=== PATIENT | female | born 1950 | race Caucasian/White ===

== ENCOUNTER 2020-12-24 14:52 | Emergency (ER) | payer MEDICARE ==
[~2020-12-24] VITALS: Ht 167.6 cm; Wt 65.8 kg
--- NOTE | 2020-12-24 15:02 | NUR ---
DR SOMMER SPEAKING WITH DR COLON
--- NOTE | 2020-12-24 15:04 | NUR ---
TO ER BED 3, C/O BACK PAIN AND DIARRHEA FOR 1 WEEK NOW, AWAITING MD MORRIS.
[2020-12-24] MEDS ORDERED: HYDROMORPHONE 1 MG/1 ML DISP.SYRIN IM ONE (15:30)
[2020-12-24] MEDS ORDERED: HYDROMORPHONE 1 MG/1 ML DISP.SYRIN ONE (15:34)
[2020-12-24] MEDS ORDERED: PRED5TAB PO (15:42)
[2020-12-24] MEDS ORDERED: GABA-532 PO (15:42)
[2020-12-24] MEDS ORDERED: MAGN400O6 PO (15:42)
[2020-12-24] MEDS ORDERED: NA P133E RC (15:42)
[2020-12-24] MEDS ORDERED: VALB80CA PO (15:42)
[2020-12-24] MEDS ORDERED: MULT-366 PO (15:42)
[2020-12-24] MEDS ORDERED: SENN-261 PO (15:42)
[2020-12-24] MEDS ORDERED: PETR113O TP (15:42)
[2020-12-24] MEDS ORDERED: CLON0.5T4 PO (15:42)
[2020-12-24] MEDS ORDERED: LOPE2CAP PO (15:42)
[2020-12-24] MEDS ORDERED: TRIA15OI9 TP (15:42)
[2020-12-24] MEDS ORDERED: PANT40TA49 PO (15:42)
[2020-12-24] MEDS ORDERED: FENT1PAT5 TD (15:42)
[2020-12-24] MEDS ORDERED: MIRT-90 PO (15:42)
[2020-12-24] MEDS ORDERED: HYDR-4075 PO (15:42)
[2020-12-24] MEDS ORDERED: CARV3.122 PO (15:42)
[2020-12-24] MEDS ORDERED: ZINC113O14 TP (15:42)
[2020-12-24] MEDS ORDERED: HYDR8TAB2 PO (15:42)
[2020-12-24] MEDS ORDERED: BISA10SU11 RC (15:42)
[2020-12-24] MEDS ORDERED: LIDO30AD10 TP (15:42)
[2020-12-24] MEDS ORDERED: IPRA3AMP23 IH (15:42)
[2020-12-24] MEDS ORDERED: ONDA4TAB11 PO (15:42)
[2020-12-24] MEDS ORDERED: HYDR4TAB4 PO (15:42)
[2020-12-24] MEDS ORDERED: MORP15TA7 PO (15:42)
--- NOTE | 2020-12-24 15:56 | NUR ---
XRAY AT BEDSIDE
[2020-12-24 16:00] VITALS: BP 121/78
--- NOTE | 2020-12-24 16:41 | NUR ---
PT DECIDED TO GO AMA
--- NOTE | 2020-12-24 16:45 | NUR ---
[facility] ETA 0756
[2020-12-24 16:49] LABS: BASOPHILS % (AUTO) 0.4 % (0.0-2.0); EOSINOPHILS % (AUTO) 0.7 % (0.0-6.0); HEMATOCRIT 38 % (33-45); HEMOGLOBIN 12.4 g/dL (11.5-14.8); LYMPHOCYTES # (AUTO) 1.8 K/uL (0.8-4.8); LYMPHOCYTES % (AUTO) 26.4 % (20.0-44.0); MEAN CORPUSCULAR HGB CONC 33 g/dl (31.0-36.0); MEAN CORPUSCULAR VOLUME 88 fL (82-100); MONOCYTES # (AUTO) 0.4 K/uL (0.1-1.30); NEUTROPHILS # (AUTO) 4.5 K/uL (1.8-8.9); NEUTROPHILS % (AUTO) 66.5 % (43.0-81.0); PLATELET COUNT (AUTO) 147 K/uL (150-450); RED BLOOD CELL COUNT(AUTO) 4.29 MIL/uL (4.0-5.2); WHITE BLOOD COUNT (AUTO) 6.8 K/uL (4.3-11.0)
[2020-12-24 16:52] LABS: CALCIUM, SERUM 8.6 mg/dL (8.5-10.1); CREATININE 0.8 mg/dL (0.6-1.3); POTASSIUM 4.3 mmol/L (3.5-5.1)
--- NOTE | 2020-12-24 17:37 | NUR ---
CALLED [facility], UPDATED ETA 1800
== END 2020-12-24 19:14 | disposition left against medical advice (07) ==
LOC: ER 14:58
DX: M54.5 Low back pain (principal); R19.7 Diarrhea, unspecified; J44.9 Chronic obstructive pulmonary disease, unspecified; K21.9 Gastro-esophageal reflux disease without esophagitis; E11.9 Type 2 diabetes mellitus without complications; M81.0 Age-related osteoporosis without current pathological fracture; F41.9 Anxiety disorder, unspecified; F32.9 Major depressive disorder, single episode, unspecified; M06.9 Rheumatoid arthritis, unspecified; Z96.641 Presence of right artificial hip joint; Z91.040 Latex allergy status; Z88.6 Allergy status to analgesic agent; Z79.899 Other long term (current) drug therapy
CPT/HCPCS: 36415; 71045; 80048; 85025; 93005; 96372; 99285; J1170

== ENCOUNTER 2021-04-11 00:39 | Inpatient (IN) | payer MEDICARE ==
[~2021-04-11] VITALS: Ht 167.6 cm; Wt 59.9 kg
[~2021-04-11 00:39] MED LIST: BISA10SU11 RC; CARV3.122 PO; CLON0.5T4 PO; FENT1PAT5 TD; GABA-532 PO; HYDR-4075 PO; HYDR4TAB4 PO; HYDR8TAB2 PO; IPRA3AMP23 IH; LIDO30AD10 TP; LOPE2CAP PO; MAGN400O6 PO; MIRT-90 PO; MORP15TA7 PO; MULT-366 PO; NA P133E RC; ONDA4TAB11 PO; PANT40TA49 PO; PETR113O TP; PRED5TAB PO; SENN-261 PO; TRIA15OI9 TP; VALB80CA PO; ZINC113O14 TP
--- NOTE | 2021-04-11 00:50 | NUR ---
RN NOTES PICC LINE NURSE (AYDE) FACILITATED INSERTION OF MIDLINE @ L UA G#18, SECURED , INTACT AND FLUSHING WELL. ACCESS CLINICIAN WELL AWARE.
--- NOTE | 2021-04-11 01:15 | NUR ---
Patient came to the er bed 6 from [facility] c/o nausea and vomiting. Patient appears to be having chills. Patient has 106.4 rectal temperature checked upon arrival. Patient placed on cooling measures. Patient is alert and awake. Patient is breathing evenly and unlabored on 2l Nasal cannula at 98%. Patient is connected to the monitor.
[2021-04-11] MEDS ORDERED: ACETAMINOPHEN 650 MG/SUPP.RECT RC ONE ×2 (01:20→01:30)
[2021-04-11] MEDS ORDERED: VANCOMYCIN 1 GM in IV D5W 250 ML IV ONE (01:30)
[2021-04-11] MEDS ORDERED: IV NS 0.9% 1,000 ML BAG IV ONE ×2 (01:30)
[2021-04-11] MEDS ORDERED: CEFEPIME 1 GM in IV D5W 50 ML IV ONE (01:30)
[2021-04-11] MEDS ORDERED: CEFEPIME 1 GM VIAL ONE (01:40)
[2021-04-11] MEDS ORDERED: VANCOMYCIN 1 GM VIAL ONE (01:40)
--- NOTE | 2021-04-11 02:01 | NUR ---
Patient has a bowel movement. Patient is provided with bed bath.
--- NOTE | 2021-04-11 02:05 | NUR ---
Xray at bedside
--- NOTE | 2021-04-11 02:08 | NUR ---
Patient taken to Ct [address]
[2021-04-11 02:10] LABS: BASOPHILS % (AUTO) 0.3 % (0.0-2.0); EOSINOPHILS % (AUTO) 0.8 % (0.0-6.0); HEMATOCRIT 40 % (33-45); HEMOGLOBIN 13.2 g/dL (11.5-14.8); LYMPHOCYTES # (AUTO) 0.7 K/uL (0.8-4.8); LYMPHOCYTES % (AUTO) 9.3 % (20.0-44.0); MEAN CORPUSCULAR HGB CONC 33 g/dl (31.0-36.0); MEAN CORPUSCULAR VOLUME 95 fL (82-100); MONOCYTES # (AUTO) 0.5 K/uL (0.1-1.30); MONOCYTES % (AUTO) 5.6 % (2.0-12.0); NEUTROPHILS # (AUTO) 6.8 K/uL (1.8-8.9); PLATELET COUNT (AUTO) 140 K/uL (150-450); RED BLOOD CELL COUNT(AUTO) 4.23 MIL/uL (4.0-5.2)
[2021-04-11 02:25] LABS: CALCIUM, SERUM 8.8 mg/dL (8.5-10.1); CARBON DIOXIDE 32 mmol/L (21-32); CHLORIDE 103 mmol/L (98-107); GLUCOSE 195 mg/dL (74-106); POTASSIUM 3.9 mmol/L (3.5-5.1); SODIUM SERUM 141 mmol/L (136-145); UREA NITROGEN, BLOOD 17 mg/dL (7-18)
[2021-04-11 02:29] LABS: BILIRUBIN,URINE NEGATIVE (NEGATIVE); COLOR,URINE YELLOW (YELLOW); LEUKOCYTE ESTERASE ,URINE NEGATIVE (NEGATIVE); NITRITE, URINE NEGATIVE (NEGATIVE); PH,URINE 5.5 (5.0-8.0); PROTEIN,URINE NEGATIVE (NEGATIVE); UGLUCOSE NEGATIVE (NEGATIVE); UROBILINOGEN,URINE 0.2 EU/dL (0.2)
--- NOTE | 2021-04-11 02:36 | NUR ---
CRITICAL LAB: LACTIC ACID: 2.6 NOTIFIED
[2021-04-11 02:37] LABS: ALANINE AMINOTRANSFERASE 15 U/L (12-78); ALBUMIN 3.6 g/dL (3.4-5.0); ALKALINE PHOSPHATASE 70 U/L (46-116); ASPARTATE AMINOTRANSFERASE 16 U/L (15-37); BILIRUBIN,DIRECT 0.1 mg/dL (0.0-0.2); BILIRUBIN,TOTAL 0.4 mg/dL (0.2-1.0); TOTAL PROTEIN, SERUM 6.9 g/dL (6.4-8.2)
--- NOTE | 2021-04-11 02:53 | NUR ---
CALLED [facility] FOR MS BED
[2021-04-11 02:56] LABS: BACTERIA,URINE None seen /HPF (None Seen); RBC,URINE 0-2 /HPF (0-2); SQUAMOUS EPITHELIAL CELL,UR Few /HPF (None Seen); WBC,URINE 0-2 /HPF (0-3)
--- NOTE | 2021-04-11 03:09 | NUR ---
DR LOPEZ ON THE PHONE W/ YELITZA MORALES
[2021-04-11] MEDS ORDERED: ACETAMINOPHEN 325 MG TABLET PO PRN (03:30)
[2021-04-11] MEDS ORDERED: MAG HYDROX/AL HYDROX/SIMETH 30 ML UDC PO PRN (03:30)
[2021-04-11] MEDS ORDERED: ZOLPIDEM TARTRATE 5 MG TABLET PO PRN (03:30)
[2021-04-11] MEDS ORDERED: MAGNESIUM HYDROXIDE 30 ML UDC PO PRN (03:30)
[2021-04-11] MEDS ORDERED: ONDANSETRON HCL/PF 4 MG/2 ML VIAL IVP PRN (03:30)
[2021-04-11] MEDS ORDERED: Z GUARD REMEDY 2 OZ OINT TP PRN (03:30)
--- NOTE | 2021-04-11 05:24 | NUR ---
MARIELA TORRE, MARGARITO ONCDARYA RE ELEVATED LACTIC
--- NOTE | 2021-04-11 07:57 | NUR ---
bed assigned 104
[2021-04-11] MEDS: PANTOPRAZOLE 40 MG VIAL IV SCH (09:00)
--- NOTE | 2021-04-11 09:51 | NUR ---
REPORT GIVEN TO KENDALL MURPHY FOR ITZ
--- NOTE | 2021-04-11 10:00 | NUR ---
RN NOTE PATIENT RECEIVED IN THE FLOOR, NON-VERBAL, EYES OPEN. PATIENT ON SIMPLE MASK WITH LABORED BREATHING. VITAL SIGNS STABLE. RIGHT FOREARM 29G IV IN PLACE, PATENT WITH NO SIGNS OF INFILTRATION. WILL CONTINUE TO MONITOR.
[2021-04-11 12:00] VITALS: BP 116/69
[2021-04-11] MEDS: CEFEPIME 2 GM in IV D5W 100 ML IV SCH ×2 (12:11→23:18)
[2021-04-11] MEDS: IV NS 0.9% 1,000 ML IV PRN ×2 (13:02→22:00)
[2021-04-11 13:14] LABS: ABG BASE EXCESS -0.7 mmol/L; ABG PCO2 38.3 mmHg (35.0-45.0); ABG PH 7.409 (7.350-7.450); COHb 0.4 % (0.5-1.5); MetHb 0.4 % (0.0-1.5); O2Hb 94.9 % (94.0-97.0); SITE, ABG Left Radial; VENT MODE, BG 8L SIMPLE MASK
[2021-04-11] MEDS: VANCOMYCIN 0.75 GM in IV D5W 250 ML IV SCH (13:56)
[2021-04-11] MEDS ORDERED: METF-881 PO (14:14)
[2021-04-11] MEDS ORDERED: LORA-258 PO (14:14)
[2021-04-11] MEDS ORDERED: LORA10TA68 PO (14:14)
[2021-04-11] MEDS ORDERED: CALC-15 PO (14:14)
[2021-04-11] MEDS ORDERED: ERGO50CA PO (14:14)
[2021-04-11] MEDS: ENOXAPARIN SODIUM 40 MG/0.4 ML DISP.SYRIN SQ SCH (14:51)
[2021-04-11] MEDS: IPRATROPIUM NEB FS 0.5 MG/2.5 ML AMPUL.NEB NEB SCH ×3 (15:48→23:37)
[2021-04-11 16:00] VITALS: BP 103/58
--- NOTE | 2021-04-11 18:30 | NUR ---
RN CLOSING NOTE PATIENT IN BED, RESTING, EYES CLOSED. PATIENT ON 8L O2 SIMPLE MASK WITH NO SIGNS OF LABORED BREATHING, CONTINUOUS PULSE OX AT BEDSIDE. RIGHT FOREARM 20G IV IN PLACE, PATENT WITH NO SIGNS OF INFILTRATION. NO SIGNS OF DISTRESS NOTED AT THIS TIME. BED LOCKED AND IN LOWEST POSITION, CALL LIGHT WITHIN REACH, 3 SIDE RAILS UP. ALL SAFETY MEASURES IMPLEMENTED. WILL ENDORSE TO DINKEY BRAKEMAN NURSE.
--- NOTE | 2021-04-11 19:30 | NUR ---
RN NOTES RECEIVED PT FOR ITZ. PATIENT IN NO S/SX OF ACUTE DISTRESS AT THIS TIME. WILL ENSURE SAFETY MEASURES WITHIN THE SHIFT. PATIENT BED ALARM IS ON. HEAD OF BED ELEVATED. BED IS LOCKED, IN LOWEST POSITION AND SIDE RAILS UP. CALL LIGHT WITHIN REACH OF THE PATIENT. APPLICABLE ISOLATION PRECAUTIONS IN PLACE. WILL CONTINUE TO MONITOR AND REASSESS FOR ANY CHANGES AND WILL CARRY OUT ANY ONGOING AND ACTIVE MD ORDER.
[2021-04-11 20:00] VITALS: BP 90/71
--- NOTE | 2021-04-11 20:00 | NUR ---
RN NOTES NOTED PT'S TEMP IS AT 100.5@1999; COOLING MEASURES RENDERED. WILL SECURED PRN SUPPOSITORY MEDICATION AND ADMINISTER NEEDED. EMERY GRINDER MADE AWARE. WILL CONTINUE TO MONITOR AND ASSESS THROUGHOUT THE SHIFT. Addendum: 04/11/21 at 2340 by LARA CROSS RN ON 2199- PT'S TEMP IS AT 98.8, WILL CONTINUE TO MONITOR AND ASSESS THROUGHOUT THE SHIFT.
--- NOTE | 2021-04-11 21:32 | NUR ---
RN NOTES NOTIFIED ONCALL MD ( DR. MORALES) ABOUT PT'S CONDITION; TEMP (1999) @100.5, PT LETHARGIC. ADVISED HIM THAT PT'S CANT TAKE ORAL MEDS AND CURRENT DIET IS CONSISTENT CARB, ALSO ADVISED HIM THAT PRIOR DIET PER ADMISSION (DR. SCHUSTER) WAS NPO; DR. MORALES ORDERED ACETAMINOPHEN SUPP REC @650MG RC Q6H PRN AND SWITCHED BACK TO NPO. ALSO ADVISED ABOUT LACTIC ACID ON 5 IS AT 3.7 PREVIOSULY AT 2.3 (ON 119) BOLUS GIVEN @0130, NO NEW ORDERS PER MD PT ON FLUIDS. WILL CARRY OUT CURRENT ORDER AND CONTINUE TO MONITOR. IMAGE SCIENTIST MADE AWARE.
[2021-04-11] MEDS: ACETAMINOPHEN 650 MG/SUPP.RECT RC PRN (21:51)
[2021-04-12] VITALS (8 sets, daily range): BP systolic 84–114; BP diastolic 47–74
--- NOTE | 2021-04-12 00:30 | NUR ---
RN NOTES NOTED PT'S BP IS AT 84/47; 500ML NS BOLUS WILL BE GIVEN PER MD ORDER. ROUTE DELIVERY MANAGER MADE AWARE. WILL CONTINUE TO MONITOR AND ASSESS THROUGHOUT THE SHIFT. Addendum: 04/12/21 at 0141 by LARA CROSS RN @0130 BP IS AT 97/73; WILL CONTINUE TO MONITOR AND ASSESS THROUGHOUT THE SHIFT.
[2021-04-12] MEDS ORDERED: LIDOCAINE HCL/MPF 1% 30 ML VIAL IJ ONE (00:44)
[2021-04-12] MEDS ORDERED: IV NS 0.9% 500 ML IV ONE (01:00)
[2021-04-12] MEDS: VANCOMYCIN 0.75 GM in IV D5W 250 ML IV SCH ×2 (01:20→15:05)
[2021-04-12] MEDS ORDERED: LIDOCAINE 1% INJ 50 ML MDV IJ ONE (01:30)
[2021-04-12] MEDS: IPRATROPIUM NEB FS 0.5 MG/2.5 ML AMPUL.NEB NEB SCH ×6 (03:30→23:29)
[2021-04-12] MEDS: ACETAMINOPHEN 650 MG/SUPP.RECT RC PRN ×2 (06:15→22:15)
[2021-04-12 06:28] LABS: BASOPHILS % (AUTO) 0.2 % (0.0-2.0); EOSINOPHILS % (AUTO) 0.2 % (0.0-6.0); HEMATOCRIT 37 % (33-45); HEMOGLOBIN 12.7 g/dL (11.5-14.8); LYMPHOCYTES # (AUTO) 0.8 K/uL (0.8-4.8); LYMPHOCYTES % (AUTO) 10.8 % (20.0-44.0); MEAN CORPUSCULAR HGB CONC 34 g/dl (31.0-36.0); MEAN CORPUSCULAR VOLUME 93 fL (82-100); MONOCYTES # (AUTO) 0.2 K/uL (0.1-1.30); MONOCYTES % (AUTO) 3.2 % (2.0-12.0); NEUTROPHILS % (AUTO) 85.6 % (43.0-81.0); PLATELET COUNT (AUTO) 85 K/uL (150-450); RED BLOOD CELL COUNT(AUTO) 4.04 MIL/uL (4.0-5.2)
[2021-04-12 06:41] LABS: ALBUMIN 2.6 g/dL (3.4-5.0); BILIRUBIN,TOTAL 0.6 mg/dL (0.2-1.0); CALCIUM, SERUM 8.2 mg/dL (8.5-10.1); CREATININE 0.9 mg/dL (0.6-1.3); MAGNESIUM 1.6 mg/dL (1.8-2.4); PHOSPHORUS 2.8 mg/dL (2.5-4.9); POTASSIUM 3.1 mmol/L (3.5-5.1); TOTAL PROTEIN, SERUM 5.5 g/dL (6.4-8.2)
--- NOTE | 2021-04-12 06:59 | NUR ---
RN CLOSING NOTE: PATIENT REMAINS IN ROOM IN NO SIGNS OF RESPIRATORY DISTRESS, PATIENT STILL ON 8L OF 02 VIA SIMPLE MASK ;TOLERATING WELL SATURATING @ >95% SP02. SAFETY MEASURES IMPLEMENTED, BED IN LOWEST POSITION, LOCKED, SIDE RAILS UP, CALL LIGHT WITHIN REACH. ALL NEEDS AND ORDERS ADDRESSED DURING THE SHIFT. IV ACCESS MAINTAINED INTACT, SECURED AND FLUSHING WELL. ALL DUE MEDS GIVEN ORDERED & SCHEDULED ; PATIENT TOLERATED WELL. PATIENT KEPT CLEAN AND COMFORTABLE WITHIN THE SHIFT. PATIENT ENDORSED TO INCOMING SHIFT RN WITH STABLE VITAL SIGN AND FOR CONTINUITY OF CARE.
[2021-04-12 07:18] LABS: BAND % (MANUAL) 3 % (0.0-5.0); LYMPHOCYTES % (MANUAL) 16 % (16-48); MONOCYTES % (MANUAL) 1 % (0-11.0); NEUTROPHILS % (MANUAL) 80 (42-76)
--- NOTE | 2021-04-12 07:25 | NUR ---
RN OPENING NOTE PATIENT RECEIVED IN BED, RESTING. PATIENT ON SIMPLE MASK WITH 8L O2 WITH NO SIGNS OF LABORED BREATHING AT THIS TIME. LEFT UA MIDLINE 18G IV IN PLACE, PATENT WITH NO SIGNS OF INFILTRATION. NO SIGNS OF DISTRESS NOTED AT THIS TIME. BED LOCKED AND IN LOWEST POSITION, 3 SIDE RAILS UP, CALL LIGHT WITHIN REACH. ALL SAFETY MEASURES. WILL CONTINUE TO MONITOR.
[2021-04-12] MEDS: PANTOPRAZOLE 40 MG VIAL IV SCH (08:13)
[2021-04-12] MEDS: Magnesium 1GM/D5W 100ML PREMIX 100 ML IV SCH ×2 (08:13→09:18)
[2021-04-12] MEDS: POTASSIUM CL. PREMIX PERIPHER. 50 ML IV SCH ×4 (10:12→13:45)
--- NOTE | 2021-04-12 10:34 | NUR ---
RN NOTE PLATELET COUNT OF 85, DOCTOR NOTIFIED. PER MD STEPHENSON, STILL OKAY TO GIVE LOVENOX 40MG. WILL CONTINUE TO MONITOR.
[2021-04-12] MEDS: ENOXAPARIN SODIUM 40 MG/0.4 ML DISP.SYRIN SQ SCH (10:36)
[2021-04-12] MEDS: CEFEPIME 2 GM in IV D5W 100 ML IV SCH ×2 (12:10→23:03)
--- NOTE | 2021-04-12 15:03 | NUR ---
RN NOTE PATIENT REFUSED LABS, UNABLE TO GET A VANCOMYCIN TROUGH LEVEL. PER PHARMACY OKAY TO GIVE TODAY'S DOSE. WILL CONTINUE TO MONITOR.
[2021-04-12] MEDS: IV NS 0.9% 1,000 ML IV PRN (15:42)
--- NOTE | 2021-04-12 18:40 | NUR ---
RN CLOSING NOTE PATIENT IN BED, RESTING, A&OX3. PATIENT ON 2L O2 NC WITH NO SIGNS OF LABORED BREATHING AT THIS TIME AND SATURATING AT 95%. TELE MONITOR ON, SINUS RHYTHM. LEFT UA MIDLINE 18G IN PLACE, PATENT WITH NO SIGNS OF INFILTRATION. ALL NEEDS ATTENDED DURING SHIFT. NO SIGNS OF DISTRESS NOTED. BED LOCKED AND IN LOWEST POSITION, 3 SIDE RAILS UP, CALL LIGHT WITHIN REACH. ALL SAFETY MEASURES IMPLEMENTED. WILL ENDORSE TO SELLING SPECIALIST NURSE.
--- NOTE | 2021-04-12 19:30 | NUR ---
RN NOTES RECEIVED PT FOR ITZ. PATIENT IN NO S/SX OF ACUTE DISTRESS AT THIS TIME; CURRENTLY ON VIA AL. WILL ENSURE SAFETY MEASURES WITHIN THE SHIFT. PATIENT BED ALARM IS ON. HEAD OF BED ELEVATED. BED IS LOCKED, IN LOWEST POSITION AND SIDE RAILS UP. CALL LIGHT WITHIN REACH OF THE PATIENT. APPLICABLE ISOLATION PRECAUTIONS IN PLACE. WILL CONTINUE TO MONITOR AND REASSESS FOR ANY CHANGES AND WILL CARRY OUT ANY ONGOING AND ACTIVE MD ORDER.
--- NOTE | 2021-04-12 20:21 | NUR ---
BREATHING TX NOT GIVEN DUE TO PENDING PCR COVID TEST RESULT. KATHERINE SANDS NOTIFIED. NO RESPIRATORY DISTRESS NOTED AT THIS TIME .
--- NOTE | 2021-04-12 22:19 | NUR ---
RN NOTES NOTED PT'S TEMP IS AT 99.5@1999; COOLING MEASURES RENDERED. ICT EDUCATOR MADE AWARE. WILL CONTINUE TO MONITOR AND ASSESS THROUGHOUT THE SHIFT. Addendum: 04/12/21 at 2229 by LARA CROSS RN ON 2199; PT TEMP IS AT 99.8; PRN MEDICATION GIVEN AND COOLING MEASURES RENDERED. WILL CONTINUE TO MONITOR AND ASSESS THROUGHOUT THE SHIFT.
[2021-04-13] VITALS (7 sets, daily range): BP systolic 101–125; BP diastolic 58–71
[2021-04-13] MEDS: VANCOMYCIN 0.75 GM in IV D5W 250 ML IV SCH ×4 (02:01→15:47)
[2021-04-13] MEDS: IPRATROPIUM NEB FS 0.5 MG/2.5 ML AMPUL.NEB NEB SCH ×6 (03:08→23:26)
--- NOTE | 2021-04-13 04:00 | NUR ---
RN NOTES NO NOTED CHANGES IN PATIENT CONDITION AT THIS TIME; PATIENT VITALS STABLE, NO SIGNS OF ACUTE RESPIRATORY DISTRESS. AM PATIENT CARE RENDERED.WILL CONTINUE TO MONITOR AND REASSESS FOR ANY CHANGES THROUGHOUT THE SHIFT.
[2021-04-13 06:30] LABS: BASOPHILS % (AUTO) 0.3 % (0.0-2.0); HEMATOCRIT 33 % (33-45); HEMOGLOBIN 11.2 g/dL (11.5-14.8); LYMPHOCYTES # (AUTO) 0.9 K/uL (0.8-4.8); LYMPHOCYTES % (AUTO) 27.6 % (20.0-44.0); MEAN CORPUSCULAR HGB CONC 34 g/dl (31.0-36.0); MEAN CORPUSCULAR VOLUME 93 fL (82-100); MONOCYTES # (AUTO) 0.3 K/uL (0.1-1.30); MONOCYTES % (AUTO) 9.3 % (2.0-12.0); NEUTROPHILS % (AUTO) 60.8 % (43.0-81.0); PLATELET COUNT (AUTO) 76 K/uL (150-450); RED BLOOD CELL COUNT(AUTO) 3.54 MIL/uL (4.0-5.2); WHITE BLOOD COUNT (AUTO) 3.2 K/uL (4.3-11.0)
--- NOTE | 2021-04-13 06:45 | NUR ---
RN CLOSING NOTE: PATIENT REMAINS IN ROOM IN NO SIGNS OF RESPIRATORY DISTRESS, PATIENT STILL ON 2L OF 02 VIA NC ;TOLERATING WELL SATURATING @ >95% SP02. SAFETY MEASURES IMPLEMENTED, BED IN LOWEST POSITION, LOCKED, SIDE RAILS UP, CALL LIGHT WITHIN REACH. ALL NEEDS AND ORDERS ADDRESSED DURING THE SHIFT. IV ACCESS MAINTAINED INTACT, SECURED AND FLUSHING WELL. ALL DUE MEDS GIVEN ORDERED & SCHEDULED ; PATIENT TOLERATED WELL. PATIENT KEPT CLEAN AND COMFORTABLE WITHIN THE SHIFT. PATIENT ENDORSED TO INCOMING SHIFT RN WITH STABLE VITAL SIGN AND FOR CONTINUITY OF CARE.
[2021-04-13 06:46] LABS: ALBUMIN 2.5 g/dL (3.4-5.0); BILIRUBIN,TOTAL 0.5 mg/dL (0.2-1.0); CALCIUM, SERUM 8.4 mg/dL (8.5-10.1); CREATININE 0.7 mg/dL (0.6-1.3); MAGNESIUM 1.8 mg/dL (1.8-2.4); PHOSPHORUS 2.4 mg/dL (2.5-4.9); POTASSIUM 3.3 mmol/L (3.5-5.1); TOTAL PROTEIN, SERUM 5.3 g/dL (6.4-8.2)
--- NOTE | 2021-04-13 07:48 | NUR ---
PUBLIC SERVICE ADMINISTRATOR OPENING NOTES RECEIVED PATIENT AWAKE ALERT IN SEMI FOWLERS POSITION ON 2L NC WITH O2 SAT @97% WITH NO S/SX OF RESPIRATORY DISTRESS. PT HAS A BRAVO MIDLINE 18G SL FLUSH PATENT AND INTACT. PT HAS SOME COMPLAINTS OF NAUSEA WILL MEDICATE WITH PRN ZOFRAN. SAFETY MEASURES IN PLACE WITH BED IN THE LOWEST POSITION AND SIDE RAILS UP X2, CALL LIGHT WITHIN REACH.
[2021-04-13] MEDS: ENOXAPARIN SODIUM 40 MG/0.4 ML DISP.SYRIN SQ SCH (08:00)
[2021-04-13] MEDS: PANTOPRAZOLE 40 MG VIAL IV SCH (08:00)
--- NOTE | 2021-04-13 08:13 | NUR ---
RESIN PAINTER NOTE HELD LOVENOX DUE TO LOW PLATELETS OF 76
[2021-04-13 08:47] LABS: BAND % (MANUAL) 1 % (0.0-5.0); EOSINOPHILS % (MANUAL) 1 % (0-4); LYMPHOCYTES % (MANUAL) 30 % (16-48); MONOCYTES % (MANUAL) 7 % (0-11.0); NEUTROPHILS % (MANUAL) 61 (42-76)
[2021-04-13] MEDS: IV NS 0.9% 1,000 ML IV PRN ×2 (09:19→23:42)
[2021-04-13] MEDS ORDERED: ACETAMINOPHEN 650 MG/20.3 ML UDC PO PRN (09:30)
[2021-04-13] MEDS ORDERED: POTASSIUM CHLORIDE 20 MEQ POWDER PACKET PO SCH (10:00)
[2021-04-13] MEDS: clonazePAM 0.5 MG TABLET PO SCH ×2 (10:01→17:04)
[2021-04-13] MEDS: GABAPENTIN 400 MG CAPSULE PO SCH ×3 (10:02→17:04)
[2021-04-13] MEDS: CEFEPIME 2 GM in IV D5W 100 ML IV SCH ×2 (11:27→23:42)
--- NOTE | 2021-04-13 13:43 | NUR ---
DONAL MURPHY NOTE HELD VANCOMYCIN DUE TO VANCO TROUGH OF 31. Addendum: 04/13/21 at 1356 by FABIOLA SHARMA RN ERROR: TROUGH LEVEL FROM INCORRECT PT. OKAY TO ADMINISTER DOSE PER PHARMACY, NEW TROUGH WILL BE DRAWN NEXT SHIFT. Addendum: 04/13/21 at 1358 by FABIOLA SHARMA RN PHARMACY CALLED AND INSTRUCTED TO HOLD DOSE. STAT TROUGH LEVEL ORDERED. Addendum: 04/13/21 at 1548 by FABIOLA N SHARMA RN VANCO TROUGH DRAWN FROM AM BLOOD DRAW WITH LEVEL AT 22. PER PHARMACY OKAY TO GIVE 1400 DOSE OF VANCOMYCIN.
[2021-04-13] MEDS ORDERED: K PHOS NEUTRAL 250 MG TABLET PO ONE (15:30)
[2021-04-13] MEDS: ENSURE ENLIVE 237 ML LIQUID (VANILLA) PO SCH (17:42)
[2021-04-13] MEDS: ACETAMINOPHEN 325 MG TABLET PO PRN (17:51)
--- NOTE | 2021-04-13 18:50 | NUR ---
RECORDING STUDIO SET UP WORKER CLOSING NOTE PATIENT IS RESTING WITH HOB ELEVATED ON 2L NC, WITH NO S/SX OF RESPIRATORY DISTRESS. PATIENT HAS A BRAVO MIDLINE 18G WITH NS RUNNING AT 75ML/HR. SAFETY MEASURES IN PLACE, BED IN LOWEST POSITION SIDE RAILS UP X2 AND CALL LIGHT WITHIN REACH.
--- NOTE | 2021-04-13 20:27 | NUR ---
BREATHING TX NOT GIVEN DUE TO PENDING PCR COVID TEST RESULT. KATHERINE HODGE NOTIFIED. NO RESPIRATORY DISTRESS NOTED AT THIS TIME .
--- NOTE | 2021-04-13 23:20 | NUR ---
RN NOTES: RECEIVED PATIENT IN BED ASLEEP BUT EASILY AROUSABLE. ALERT AND VERBALLY RESPONSIVE. ON O2 INHALATION AT 2L/MIN VIA NASAL CANNULA, O2 SAT 98%. NO C/O PAIN OR DISCOMFORT. NO RESPIRATORY DISTRESS. HAS BRAVO MIDLINE W/ 18G INTACT AND PATENT. BED IN LOW POSITION. BOTH SIDE RAILS UP. PLACE CALL LIGHT WITHIN REACH.
[2021-04-14] VITALS: BP 108/66
[2021-04-14] MEDS: IPRATROPIUM NEB FS 0.5 MG/2.5 ML AMPUL.NEB NEB SCH ×6 (02:53→23:30)
[2021-04-14 04:00] VITALS: BP 113/63
[2021-04-14] MEDS: MORPHINE SULFATE INJ 4 MG/ML DISP.SYRIN IV PRN ×3 (06:12→16:42)
--- NOTE | 2021-04-14 06:30 | NUR ---
RN CLOSING NOTES: RESIDENT IN BED, ALERT AND VERBALLY RESPONSIVE. C/O GENERALIZED BODY PAIN 8/10. PAIN MEDICATION MORPHINE IV PUSH GIVEN AND PATIENT TOLERATED WELL. NO RESPIRATORY DISTRESS NOTED. NO SIGNIFICANT CHANGES NOTED. WILL ENDORSE TO MORNING SHIFT NURSE.
--- NOTE | 2021-04-14 07:30 | NUR ---
MS RN OPENING NOTES RECEIVED PATIENT ON BED, AWAKE AND A/O X3. ON O2 AT 2LPM VIA NASAL CANNULA SATURATING WELL. NO SOB NOTED. NOT IN DISTRESS. WITH NO COMPLAINTS OF PAIN AT THIS TIME. WITH IV ACCESS AT LEFT UPPER ARM MIDLINE WITH IVF NS AT 75ML/HR INFUSING WELL. IN LINE IS PATENT AND INTACT. SAFETY MEASURES IN PLACE. CALL LIGHT WITHIN REACH. BED ON LOWEST AND LOCKED POSITION, SIDE RAILS UP X2. WILL CONTINUE TO MONITOR.
[2021-04-14 08:00] VITALS: BP 133/68
[2021-04-14] MEDS: ENOXAPARIN SODIUM 40 MG/0.4 ML DISP.SYRIN SQ SCH (09:00)
[2021-04-14] MEDS: clonazePAM 0.5 MG TABLET PO SCH ×2 (09:36→16:34)
[2021-04-14] MEDS: GABAPENTIN 400 MG CAPSULE PO SCH ×3 (09:36→16:34)
[2021-04-14] MEDS: PANTOPRAZOLE 40 MG/PACK PACK PO SCH (09:37)
[2021-04-14] MEDS: ENSURE ENLIVE 237 ML LIQUID (VANILLA) PO SCH ×2 (09:40→18:03)
[2021-04-14] MEDS: CEFEPIME 2 GM in IV D5W 100 ML IV SCH (12:13)
[2021-04-14] MEDS: VANCOMYCIN 0.75 GM in IV D5W 250 ML IV SCH (13:24)
--- NOTE | 2021-04-14 15:00 | NUR ---
MS RN NOTES AMBULANCE PERSONNEL WERE HERE TO SR ACCOUNT EXECUTIVE THE PATIENT BUT PATIENT REFUSED FOR SHE WANTS TO BE DISCHARGED TO [facility] BUT [facility] DOESN'T OFFER GIVING IV ANTIBIOTICS. PATIENT WAS SUPPOSEDLY TO BE DISCHARGE TO [facility] FOR 3 DAYS THEN BE SENT BACK TO [facility]. DR. SCHUSTER HELD THE DISCHARGE ORDER TO CONVINCE PATIENT TOMORROW.
[2021-04-14 16:00] VITALS: BP 134/72
--- NOTE | 2021-04-14 19:20 | NUR ---
MS RN CLOSING NOTES PATIENT ON BED, AWAKE AND A/O X3. ON O2 AT 2LPM VIA NASAL CANNULA SATURATING WELL. NO SOB NOTED. NOT IN DISTRESS. WITH NO COMPLAINTS OF PAIN AT THIS TIME. WITH IV ACCESS AT LEFT UPPER ARM MIDLINE WITH IVF NS AT 75ML/HR INFUSING WELL. IV LINE IS PATENT AND INTACT. SAFETY MEASURES IN PLACE. CALL LIGHT WITHIN REACH. BED ON LOWEST AND LOCKED POSITION, SIDE RAILS UP X2. WILL ENDORSE TO NEXT SHIFT FOR ITZ..
[2021-04-14] MEDS: IV NS 0.9% 1,000 ML IV PRN (19:30)
--- NOTE | 2021-04-14 20:05 | NUR ---
RN NOTE LAST VANCOMYCIN THROUGH TAKEN ON 04/13/2021, PATIENT HAS REFUSED LABS SINCE THEN, NO NEW LABS TAKEN FOR TODAY. NOTIFIED PHARMACY REGARDING NEXT DOSE OF VANCOMYCIN SCHEDULED FOR 0200 ON 04/15/21. SINCE THERE'S NO RECENT VANCOMYCIN THROUGH LEVELS AVAILABLE, PHARMACY WAS CONTACTED TO DETERMINE THE NEXT COURSE OF ACTION. PATIENT WILL BE ASKED FOR LABS, IF PATIENT REFUSES, THE NEXT DOSE OF VANCOMYCIN WILL PROCEED SCHEDULED. IF LABS ARE OBTAINED, NEXT VANCOMYCIN ADMINISTRATION WILL DEPEND ON THE THROUGH LEVELS YIELDED BY THESE LABS.
--- NOTE | 2021-04-14 20:12 | NUR ---
BREATHING TX NOT GIVEN DUE TO PENDING PCR COVID TEST RESULT. KATHERINE OCAMPO NOTIFIED. NO RESPIRATORY DISTRESS NOTED AT THIS TIME .
--- NOTE | 2021-04-14 21:00 | NUR ---
RN NOTE PATIENT REFUSES LABS, NO VANCOMYCIN TROUGH IS ABLE TO BE OBTAINED AT THIS TIME. WILL PROCEED WITH NEXT SCHEDULED VANCOMYCIN ADMINISTRATION FOR 0200 ON 04/15/21 PER PHARMACY'S ORDERS.
[2021-04-15] VITALS: BP 135/81
[2021-04-15] MEDS: CEFEPIME 2 GM in IV D5W 100 ML IV SCH ×2 (00:03→11:23)
[2021-04-15] MEDS: MORPHINE SULFATE INJ 4 MG/ML DISP.SYRIN IV PRN ×5 (00:39→17:45)
[2021-04-15] MEDS: VANCOMYCIN 0.75 GM in IV D5W 250 ML IV SCH ×2 (02:21→13:26)
[2021-04-15] MEDS: IPRATROPIUM NEB FS 0.5 MG/2.5 ML AMPUL.NEB NEB SCH ×4 (03:30→15:30)
--- NOTE | 2021-04-15 07:01 | NUR ---
RT Treatment not given due to pending COVID-19 results
--- NOTE | 2021-04-15 07:11 | NUR ---
RN CLOSING NOTES PATIENT REMAINS IN BED, AWAKE AND A/O X4. ON O2 AT 2L VIA NASAL CANNULA SATURATING AT 94% . SLIGHT SOB NOTED, WHICH WAS ALLEVIATED BY REPOSITIONING OF BED TO 45 DEGREES. NOT IN DISTRESS. WITH NO COMPLAINTS OF PAIN AT THIS TIME AFTER MORPHINE ADMINISTRATION AT 0600. PATIENT REFUSED MORNING LABS. WITH IV ACCESS AT LEFT UPPER ARM MIDLINE WITH IV NS AT 75ML/HR INFUSING WELL. IV LINE IS PATENT AND INTACT. SAFETY MEASURES IN PLACE. CALL LIGHT WITHIN REACH. BED ON LOWEST AND LOCKED POSITION, SIDE RAILS UP X2. WILL ENDORSE TO NEXT SHIFT FOR ITZ.
--- NOTE | 2021-04-15 07:53 | NUR ---
MS RN OPENING NOTES RECEIVED PT RESTING COMFORTABLY IN SEMI FOWLERS POSITION ON 2 L NC WITH NO S/S OF RESP DISTRESS. PT. HAS A LEFT UPPER ARM MIDLINE 18 G RUNNING NS AT 75 ML PER HR. PT HAS NO COMPLAINTS OF PAIN AT THIS TIME. SAFETY MEASURES IN PLACE, BED AT LOWEST LOCKED POSITION, CALL LIGHT WITHIN REACH.
[2021-04-15 08:00] VITALS: BP 141/80
[2021-04-15] MEDS: clonazePAM 0.5 MG TABLET PO SCH ×2 (08:42→17:06)
[2021-04-15] MEDS: GABAPENTIN 400 MG CAPSULE PO SCH ×3 (08:42→17:05)
[2021-04-15] MEDS: ENOXAPARIN SODIUM 40 MG/0.4 ML DISP.SYRIN SQ SCH (08:43)
[2021-04-15] MEDS: ENSURE ENLIVE 237 ML LIQUID (VANILLA) PO SCH (08:43)
[2021-04-15] MEDS: PANTOPRAZOLE 40 MG/PACK PACK PO SCH (09:00)
[2021-04-15] MEDS ORDERED: PANTOPRAZOLE 40 MG TABLET.DR PO SCH (09:00)
[2021-04-15 09:56] VITALS: BP 141/80
[2021-04-15] MEDS: IV NS 0.9% 1,000 ML IV PRN (11:22)
[2021-04-15] MEDS ORDERED: AMOX-430 PO (11:53)
--- NOTE | 2021-04-15 12:30 | NUR ---
MS RN NOTES [facility] CALLED FOR PT, ABLE TO TRANSFER TO PHONE IN PT ROOM.
--- NOTE | 2021-04-15 13:24 | NUR ---
MS RN NOTE VANCOMYCIN DUE AT 1400, TROUGH LEVEL 22 FROM 04/13. PER PHARMACY, OKAY TO GIVE.
[2021-04-15 15:35] LABS: BASOPHILS % (AUTO) 0.6 % (0.0-2.0); EOSINOPHILS % (AUTO) 3.6 % (0.0-6.0); HEMATOCRIT 31 % (33-45); HEMOGLOBIN 10.5 g/dL (11.5-14.8); LYMPHOCYTES % (AUTO) 49.7 % (20.0-44.0); MEAN CORPUSCULAR HGB CONC 33 g/dl (31.0-36.0); MEAN CORPUSCULAR VOLUME 94 fL (82-100); MONOCYTES # (AUTO) 0.3 K/uL (0.1-1.30); MONOCYTES % (AUTO) 8.4 % (2.0-12.0); NEUTROPHILS # (AUTO) 1.5 K/uL (1.8-8.9); NEUTROPHILS % (AUTO) 37.7 % (43.0-81.0); PLATELET COUNT (AUTO) 93 K/uL (150-450); RED BLOOD CELL COUNT(AUTO) 3.34 MIL/uL (4.0-5.2); WHITE BLOOD COUNT (AUTO) 4.1 K/uL (4.3-11.0)
[2021-04-15 15:48] LABS: CALCIUM, SERUM 7.8 mg/dL (8.5-10.1); CREATININE 0.8 mg/dL (0.6-1.3); POTASSIUM 2.9 mmol/L (3.5-5.1)
[2021-04-15 16:00] VITALS: BP 143/81
[2021-04-15] MEDS: ACETAMINOPHEN 325 MG TABLET PO PRN (17:39)
--- NOTE | 2021-04-15 17:50 | NUR ---
MS RN NOTE PT DISCHARGED TO [facility] IN STABLE CONDITION. BRAVO MIDLINE REMOVED, DRESSING APPLIED WITH KURLEX WRAP. NO S/SX OF BLEEDING. DISCHARGE INSTRUCTIONS GIVEN WITH UPDATED MEDICATION LIST. BELONGINGS CHECKED. VITAL SIGNS OBTAINED BY AMBULANCE. REPORT GIVEN TO EVON AT [facility].
== END 2021-04-15 18:24 | DRG 871 ==
LOC: ER 00:39 → TELE1 08:49 → MEDSG1 04-14 07:08
PROVIDERS: ATTEND Internal Medicine
PROC: 05H633Z Insertion of Infusion Device into Left Subclavian Vein, Percutaneous Approach (ICD-10-PCS; principal; 2021-04-12)
PROC: B547ZZA Ultrasonography of Left Subclavian Vein, Guidance (ICD-10-PCS; 2021-04-12)
DX: A41.9 Sepsis, unspecified organism (principal); G93.41 Metabolic encephalopathy; J69.0 Pneumonitis due to inhalation of food and vomit; J96.01 Acute respiratory failure with hypoxia; E87.2 Acidosis; J98.11 Atelectasis; J44.0 Chronic obstructive pulmonary disease with (acute) lower respiratory infection; J90 Pleural effusion, not elsewhere classified; E11.9 Type 2 diabetes mellitus without complications; G89.4 Chronic pain syndrome; K21.9 Gastro-esophageal reflux disease without esophagitis; M06.9 Rheumatoid arthritis, unspecified; M81.0 Age-related osteoporosis without current pathological fracture; Z96.641 Presence of right artificial hip joint; Z96.651 Presence of right artificial knee joint; Z20.822 Contact with and (suspected) exposure to COVID-19; T50.B95A Adverse effect of other viral vaccines, initial encounter; Y92.89 Other specified places as the place of occurrence of the external cause; F39 Unspecified mood [affective] disorder; J32.0 Chronic maxillary sinusitis; J32.3 Chronic sphenoidal sinusitis; G24.01 Drug induced subacute dyskinesia; Z79.891 Long term (current) use of opiate analgesic; F41.8 Other specified anxiety disorders; D69.6 Thrombocytopenia, unspecified; Z79.84 Long term (current) use of oral hypoglycemic drugs
CPT/HCPCS: 36415; 36600; 70450-TC; 71045-TC; 80048-TC; 80053-TC; 80076-TC; 80202-TC; 81001; 82803-TC; 83605-TC; 83735-TC; 83880; 84100-TC; 84484-TC; 85025-TC; 85730-TC; 87040-TC; 87081-TC; 87086-TC; 92526; 92611-TC; 94760-TC; 94799-TC; 97112-TC; 97116-TC; 97530-TC; A6403; C9113; C9803; G0378; J0692; J1650; J2270; J2405; J3370; J3475; J3480; J3490; J7030; J7040; J7060; U0003

== ENCOUNTER 2021-05-11 08:43 | Inpatient (IN) | payer MEDICARE ==
[~2021-05-11] VITALS: Ht 160 cm; Wt 50.8 kg
[~2021-05-11 08:43] MED LIST changes: +AMOX-430 PO; +CALC-15 PO; +ERGO50CA PO; -HYDR4TAB4 PO; +LORA-258 PO; +LORA10TA68 PO; +METF-881 PO; -MORP15TA7 PO; -SENN-261 PO; -ZINC113O14 TP
--- NOTE | 2021-05-11 09:02 | NUR ---
TO ER BED 9, [id number] FOR LOWER BACK PAIN X 2 DAYS, PT C/O DYSURIA, AAOX3, BREATHING EVEN AND NON LABORED, CONNECTED TO MONITOR
[2021-05-11] MEDS ORDERED: HYDROMORPHONE INJ 2 MG/ML DISP.SYRIN IV ONE ×2 (09:30→15:30)
[2021-05-11] MEDS ORDERED: ONDANSETRON HCL/PF 4 MG/2 ML VIAL IVP ONE (09:30)
[2021-05-11] MEDS ORDERED: IV NS 0.9% 1,000 ML BAG IV ONE (09:30)
[2021-05-11] MEDS ORDERED: ACET650S11 RC (09:46)
[2021-05-11] MEDS ORDERED: HYPR15DR4 EACHEYE (09:46)
[2021-05-11] MEDS ORDERED: HYDROMORPHONE 1 MG/1 ML DISP.SYRIN ONE (09:46)
[2021-05-11] MEDS ORDERED: ONDANSETRON HCL/PF 4 MG/2 ML VIAL ONE (09:46)
[2021-05-11] MEDS ORDERED: TRAM50TA2 PO (09:46)
[2021-05-11] MEDS ORDERED: METF-440 PO (09:46)
[2021-05-11] MEDS ORDERED: MINE133E RC (09:46)
[2021-05-11 09:59] LABS: BASOPHILS # (AUTO) 0.1 K/uL (0.0-0.2); EOSINOPHILS % (AUTO) 0.8 % (0.0-6.0); HEMATOCRIT 48 % (33-45); HEMOGLOBIN 15.8 g/dL (11.5-14.8); MEAN CORPUSCULAR HGB CONC 33 g/dl (31.0-36.0); MEAN CORPUSCULAR VOLUME 93 fL (82-100); MONOCYTES # (AUTO) 0.6 K/uL (0.1-1.30); MONOCYTES % (AUTO) 8.3 % (2.0-12.0); NEUTROPHILS # (AUTO) 3.8 K/uL (1.8-8.9); NEUTROPHILS % (AUTO) 49.9 % (43.0-81.0); PLATELET COUNT (AUTO) 249 K/uL (150-450); RED BLOOD CELL COUNT(AUTO) 5.12 MIL/uL (4.0-5.2); WHITE BLOOD COUNT (AUTO) 7.6 K/uL (4.3-11.0)
--- NOTE | 2021-05-11 10:06 | NUR ---
TAKEN TO CT
--- NOTE | 2021-05-11 10:09 | NUR ---
UNABLE TO GIVE URINE SAMPLE AT THIS TIME
[2021-05-11 10:11] LABS: CALCIUM, SERUM 9.8 mg/dL (8.5-10.1); CARBON DIOXIDE 30 mmol/L (21-32); CHLORIDE 101 mmol/L (98-107); CREATININE 0.8 mg/dL (0.6-1.3); GLUCOSE 137 mg/dL (74-106); SODIUM SERUM 140 mmol/L (136-145); UREA NITROGEN, BLOOD 19 mg/dL (7-18)
[2021-05-11 10:21] LABS: ALANINE AMINOTRANSFERASE 28 U/L (12-78); ALKALINE PHOSPHATASE 69 U/L (46-116); ASPARTATE AMINOTRANSFERASE 20 U/L (15-37); BILIRUBIN,DIRECT 0.1 mg/dL (0.0-0.2); BILIRUBIN,TOTAL 0.4 mg/dL (0.2-1.0); LIPASE 246 U/L (73-393); TOTAL PROTEIN, SERUM 7.7 g/dL (6.4-8.2)
--- NOTE | 2021-05-11 10:58 | NUR ---
MOVE SHEET SUBMITTED AND CALLED FOR MS BED.
--- NOTE | 2021-05-11 10:58 | NUR ---
URINE COLLECTED AND SENT
[2021-05-11 11:13] LABS: BILIRUBIN,URINE Negative (NEGATIVE); COLOR,URINE YELLOW (YELLOW); LEUKOCYTE ESTERASE ,URINE Small (NEGATIVE); NITRITE, URINE Negative (NEGATIVE); PH,URINE 5.5 (5.0-8.0); PROTEIN,URINE Trace mg/dl (NEGATIVE); UGLUCOSE Negative (NEGATIVE); UROBILINOGEN,URINE 0.2 EU/dL (0.2)
--- NOTE | 2021-05-11 11:21 | NUR ---
COVID PCR SWAB DONE AND SENT
[2021-05-11 11:38] LABS: BACTERIA,URINE 1+ /HPF (None Seen); SQUAMOUS EPITHELIAL CELL,UR Few /HPF (None Seen)
--- NOTE | 2021-05-11 13:30 | NUR ---
REPORT GIVEN TO MAURY MURPHY FOR ITZ
--- NOTE | 2021-05-11 13:33 | NUR ---
ACCOUNTING TUTOR NOTE RECEIVED REPORT FROM ER NURSE GL, PATIENT WILL BE BROUGHT TO PATIENT 114-1
--- NOTE | 2021-05-11 13:45 | NUR ---
CODER OPERATOR NOTE PATIENT ARRIVED TO FLOOR ROOM 114-4. VITALS WNL, NO COMPLAINTS OF SOB AT THIS TIME
[2021-05-11] MEDS: ACETAMINOPHEN 325 MG TABLET PO PRN ×2 (14:28→14:33)
[2021-05-11] MEDS ORDERED: BISACODYL SUPP (10 MG) 10 MG/SUPP.RECT SUPP.RECT RC PRN (14:30)
[2021-05-11] MEDS ORDERED: MINERAL OIL 133 ML (PYXIS) 1 EA ENEMA RC PRN (14:30)
[2021-05-11] MEDS ORDERED: POLYVINYL ALCOHOL 15 ML BOTTLE EACHEYE PRN (15:00)
[2021-05-11 16:00] VITALS: BP 128/61
[2021-05-11] MEDS: ONDANSETRON HCL/PF 4 MG/2 ML VIAL IVP PRN (16:25)
[2021-05-11] MEDS: ENOXAPARIN SODIUM 40 MG/0.4 ML DISP.SYRIN SQ SCH (16:35)
[2021-05-11] MEDS: CARVEDILOL 3.125 MG TABLET PO SCH (17:00)
[2021-05-11] MEDS ORDERED: METFORMIN 500 MG TABLET PO SCH (17:00)
[2021-05-11] MEDS: GABAPENTIN 100 MG CAPSULE PO SCH (17:00)
[2021-05-11] MEDS ORDERED: NALOXONE HCL 0.4 MG/ML AMPUL IV PRN (18:30)
[2021-05-11] MEDS ORDERED: IV NS 0.9% 1,000 ML IV PRN (18:30)
[2021-05-11] MEDS ORDERED: DEXTROSE 50%-WATER 50 ML DISP.SYRIN IV PRN (18:30)
[2021-05-11] MEDS ORDERED: METOCLOPRAMIDE HCL 10 MG/2 ML VIAL IV PRN (18:30)
[2021-05-11] MEDS ORDERED: clonazePAM 0.5 MG TABLET PO PRN (18:30)
--- NOTE | 2021-05-11 18:41 | NUR ---
MATERIAL CONTROL SUPERVISOR CLOSING NOTE PATIENT IN BED A/OX3. NO S/S OF APPARENT DISTRESS ON ROOM AIR WITH 02 SAT ABOVE 95%. HOB ELEVATED. ABLE TO MAKE NEEDS KNOWN. SCHEDULED MEDS ADMINISTERED. NEEDS ATTENDED. SAFETY IN PLACE, BED IN LOWEST POSITION, CALL LIGHT WITHIN REACH, SIDE RAILS UP X 2. ENDORSED TO COLD ROLL PACKER SHEET IRON RN FOR ITZ.
[2021-05-11] MEDS: FENTANYL TD PATCH (25 MCG/HR) 25 MCG/HR PATCH.TD72 TD SCH (19:00)
--- NOTE | 2021-05-11 19:30 | NUR ---
RN NOTES PATIENT IN BED A/OX3. NO S/S OF APPARENT DISTRESS ON ROOM AIR WITH 02 SAT ABOVE 95%. HOB ELEVATED. ABLE TO MAKE NEEDS KNOWN. SAFETY IN PLACE, BED IN LOWEST POSITION, CALL LIGHT WITHIN REACH, SIDE RAILS UP X 2. WILL CONTINUE TO MONITOR FOR ANY CHANGES
[2021-05-11 20:32] VITALS: BP 104/72
[2021-05-11] MEDS: CEFTRIAXONE 1 G in IV D5W 50 ML IV SCH (20:53)
[2021-05-11 22:00] VITALS: BP 104/77
[2021-05-11] MEDS: MIRTAZAPINE 15 MG TABLET PO SCH (22:00)
[2021-05-11] MEDS: BLOOD SUGAR DIAGNOSTIC 1 EACH STRIP IN SCH (22:00)
--- NOTE | 2021-05-11 22:00 | NUR ---
RN NOTES PT REFUSED IV NS AT 75ML/HR. IV INFUSION WAS STOPPED AT 2150. WILL CONTINUE TO MONITOR PT
[2021-05-12 04:16] VITALS: BP 110/56
[2021-05-12 06:00] VITALS: BP 110/75
[2021-05-12 07:17] LABS: BASOPHILS % (AUTO) 0.5 % (0.0-2.0); EOSINOPHILS % (AUTO) 1.5 % (0.0-6.0); HEMATOCRIT 41 % (33-45); HEMOGLOBIN 13.8 g/dL (11.5-14.8); LYMPHOCYTES # (AUTO) 2.6 K/uL (0.8-4.8); LYMPHOCYTES % (AUTO) 43.4 % (20.0-44.0); MEAN CORPUSCULAR HGB CONC 34 g/dl (31.0-36.0); MEAN CORPUSCULAR VOLUME 93 fL (82-100); MONOCYTES # (AUTO) 0.5 K/uL (0.1-1.30); MONOCYTES % (AUTO) 7.9 % (2.0-12.0); NEUTROPHILS # (AUTO) 2.8 K/uL (1.8-8.9); NEUTROPHILS % (AUTO) 46.7 % (43.0-81.0); PLATELET COUNT (AUTO) 196 K/uL (150-450); RED BLOOD CELL COUNT(AUTO) 4.38 MIL/uL (4.0-5.2); WHITE BLOOD COUNT (AUTO) 6.1 K/uL (4.3-11.0)
--- NOTE | 2021-05-12 07:21 | NUR ---
RN CLOSING NOTES PATIENT REMAINS IN BED A/OX3. NO S/S OF APPARENT DISTRESS ON ROOM AIR WITH 02 SAT 98%. HOB ELEVATED. ABLE TO MAKE NEEDS KNOWN. SCHEDULED MEDS ADMINISTERED. NEEDS ATTENDED. SAFETY IN PLACE, BED IN LOWEST POSITION, CALL LIGHT WITHIN REACH, SIDE RAILS UP X 2. WILL ENDORSED TO HEAD BANDER AND LINER OPERATOR RN FOR ITZ.
[2021-05-12] MEDS: PANTOPRAZOLE 40 MG TABLET.DR PO SCH (07:43)
[2021-05-12] MEDS: BLOOD SUGAR DIAGNOSTIC 1 EACH STRIP IN SCH ×4 (07:43→22:22)
--- NOTE | 2021-05-12 08:00 | NUR ---
RN OPENING NOTES PATIENT REMAINS IN BED A/OX3. NO S/S OF APPARENT DISTRESS ON ROOM AIR WITH 02 SAT 98%. HOB ELEVATED. ABLE TO MAKE NEEDS KNOWN. SAFETY IN PLACE, BED IN LOWEST POSITION, CALL LIGHT WITHIN REACH, SIDE RAILS UP X 2. WILL CONTINUE TO MONITOR.
[2021-05-12] MEDS: INSULIN REGULAR, HUMAN 100 UNIT/ML 3 ML VIAL SQ PRN ×4 (08:13→22:24)
[2021-05-12 08:26] LABS: CALCIUM, SERUM 9.3 mg/dL (8.5-10.1); CREATININE 0.8 mg/dL (0.6-1.3); MAGNESIUM 1.8 mg/dL (1.8-2.4); PHOSPHORUS 3.9 mg/dL (2.5-4.9); POTASSIUM 3.9 mmol/L (3.5-5.1)
[2021-05-12] MEDS: CARVEDILOL 3.125 MG TABLET PO SCH ×2 (08:54→16:13)
[2021-05-12] MEDS: CALCIUM CARB 600MG /VIT D 1 EACH TABLET PO SCH (08:54)
[2021-05-12] MEDS: GABAPENTIN 100 MG CAPSULE PO SCH ×3 (08:54→16:14)
[2021-05-12] MEDS: LORATADINE 10 MG TABLET PO SCH (08:54)
[2021-05-12] MEDS: MULTIVIT W/MINERALS 1 TAB TABLET PO SCH (08:54)
[2021-05-12] MEDS: LIDOCAINE 5% (PATCH) 1 EA PATCH TP SCH (08:55)
[2021-05-12] MEDS: FENTANYL TD PATCH (25 MCG/HR) 25 MCG/HR PATCH.TD72 TD SCH (08:57)
[2021-05-12] MEDS ORDERED: VALBENAZINE TOSYLATE 80 MG PO SCH (09:00)
--- NOTE | 2021-05-12 09:46 | NUR ---
RN NOTES ALL MEDS SCANNED BUT PT. LAST MINUTE WAS SCARED TO TAKE MEDS DUE TO FEAR OF NAUSEA. PT REFUSED ALL MORNING MEDS. NOTIFIED PHARMACY. WILL RETURN ALL MEDS. WILL CONTINUE TO MONITOR PT.
[2021-05-12] MEDS ORDERED: METOCLOPRAMIDE HCL 10 MG/2 ML VIAL IV PRN (10:30)
[2021-05-12] MEDS: HYDROMORPHONE 1 MG/1 ML DISP.SYRIN IV PRN ×3 (10:52→23:01)
[2021-05-12] MEDS: ONDANSETRON HCL/PF 4 MG/2 ML VIAL IVP PRN ×3 (12:55→23:49)
[2021-05-12 14:00] VITALS: BP 87/53
--- NOTE | 2021-05-12 16:54 | NUR ---
RN NOTES PT BLOOD GLUCOSE IS 114. NO INSULIN GIVEN PER SCALE.
[2021-05-12] MEDS: CEFTRIAXONE 1 G in IV D5W 50 ML IV SCH (18:04)
--- NOTE | 2021-05-12 19:09 | NUR ---
RN CLOSING NOTES PATIENT REMAINS IN BED A/OX3. NO S/S OF NOTEABLE DISTRESS ON ROOM AIR WITH 02 SAT 98%. HOB ELEVATED. ABLE TO MAKE NEEDS KNOWN. PT REFUSED ALL PO MEDS DUE TO NAUSEA AND FEAR OF ASIPIRATION. ALL NEEDS ATTENDED. SAFETY IN PLACE, BED IN LOWEST POSITION, CALL LIGHT WITHIN REACH, SIDE RAILS UP X 2. WILL ENDORSED TO JET BLADE POLISHER RN FOR ITZ.
--- NOTE | 2021-05-12 19:40 | NUR ---
RN opening notes Pt is laying in bed comfortably watching TV. Pt is alert and orientedX3. Respiration is normal in room air. No SOB. No S/S of distress noted. IV is at LAC# 20 is clean, intact and SL. Pt refused IV fluid. Explained risks and benefits. Pt keep refusing. Safety precautions is maintained. Bed at low position, brakes locked, side rails upX3, hob elevated and call light is within reach. Will continue to monitor.
[2021-05-12] MEDS: ENOXAPARIN SODIUM 40 MG/0.4 ML DISP.SYRIN SQ SCH (21:00)
--- NOTE | 2021-05-12 21:20 | NUR ---
RN notes Pt refused PM meds: lovenox and remeron 15 mg/2tabs/po. Explained risks and benefits. Pt stated "NO!". Pt keep refusing. Will continue to monitor.
[2021-05-12] MEDS: MIRTAZAPINE 15 MG TABLET PO SCH (21:22)
[2021-05-12 22:00] VITALS: BP 118/71
--- NOTE | 2021-05-12 23:01 | NUR ---
RN notes Pt is complaining of generalized pain and requesting pain meds. Administered dilaudid 1 mg/iv push/ prn as ordered for pain. VS is stable. safety precautions is maintained. will continue to monitor.
--- NOTE | 2021-05-12 23:53 | NUR ---
RN notes Pt is complaining of nausea and no vomiting. Administered zofran 4 mg/ivpush/prn as ordered per Pt' request. Safety precautions is maintained. Will continue to monitor.
[2021-05-13 04:00] VITALS: BP 132/70
--- NOTE | 2021-05-13 06:30 | NUR ---
RN closing notes Pt is resting in bed comfortably. Pt is alert and orientedX3. Respiration is normal in room air. No SOB. No S/S of distress noted. IV is at LAC# 20 is clean, intact and SL. Pt still refused IV fluid. Kept Pt clean, dry and comfortable. Safety precautions is maintained. Bed at low position, brakes locked, side rails upX3, hob elevated and call light is within reach. Will endorse to am nurse for ITZ.
[2021-05-13 07:16] LABS: BASOPHILS % (AUTO) 0.6 % (0.0-2.0); EOSINOPHILS % (AUTO) 2.2 % (0.0-6.0); HEMATOCRIT 42 % (33-45); LYMPHOCYTES # (AUTO) 2.5 K/uL (0.8-4.8); MEAN CORPUSCULAR HGB CONC 34 g/dl (31.0-36.0); MEAN CORPUSCULAR VOLUME 93 fL (82-100); MONOCYTES # (AUTO) 0.5 K/uL (0.1-1.30); MONOCYTES % (AUTO) 8.2 % (2.0-12.0); NEUTROPHILS # (AUTO) 3.2 K/uL (1.8-8.9); PLATELET COUNT (AUTO) 190 K/uL (150-450); RED BLOOD CELL COUNT(AUTO) 4.49 MIL/uL (4.0-5.2); WHITE BLOOD COUNT (AUTO) 6.5 K/uL (4.3-11.0)
[2021-05-13] MEDS: PANTOPRAZOLE 40 MG TABLET.DR PO SCH (07:30)
[2021-05-13] MEDS: BLOOD SUGAR DIAGNOSTIC 1 EACH STRIP IN SCH ×2 (07:30→12:52)
[2021-05-13 07:41] LABS: CALCIUM, SERUM 9.4 mg/dL (8.5-10.1); CREATININE 0.8 mg/dL (0.6-1.3); MAGNESIUM 1.5 mg/dL (1.8-2.4); PHOSPHORUS 3.8 mg/dL (2.5-4.9); POTASSIUM 3.5 mmol/L (3.5-5.1)
[2021-05-13 08:00] VITALS: BP 123/67
--- NOTE | 2021-05-13 08:02 | NUR ---
RN OPENING NOTES RECEIVED PATIENT AWAKE, ALERT/ORIENTED X 3, ABLE TO MAKE NEEDS KNOWN. PATIENT ON ROOM AIR WITH O2 SAT-95%. NO SOB OR ANY DISTRESS NOTED. WITH LAC # 20 PATENT AND INTACT. ALL SAFETY MEASURES IMPLEMENTED. BED LOCKED, ON LOWEST POSITION WITH SIDERAILS UP X 2. CALL LIGHT WITHIN REACH. WILL CONTINUE TO MONITOR.
[2021-05-13] MEDS: CALCIUM CARB 600MG /VIT D 1 EACH TABLET PO SCH (08:58)
[2021-05-13] MEDS: GABAPENTIN 100 MG CAPSULE PO SCH ×2 (08:58→13:00)
[2021-05-13] MEDS: LORATADINE 10 MG TABLET PO SCH (08:58)
[2021-05-13] MEDS: CARVEDILOL 3.125 MG TABLET PO SCH (08:58)
[2021-05-13] MEDS: MULTIVIT W/MINERALS 1 TAB TABLET PO SCH (08:59)
[2021-05-13] MEDS: LIDOCAINE 5% (PATCH) 1 EA PATCH TP SCH (09:00)
[2021-05-13] MEDS: ONDANSETRON HCL/PF 4 MG/2 ML VIAL IVP PRN (09:36)
[2021-05-13] MEDS ORDERED: FENT1PAT4 TD (10:11)
[2021-05-13] MEDS ORDERED: HYDR4TAB4 PO (10:11)
[2021-05-13] MEDS ORDERED: CLON0.5T4 PO (10:11)
[2021-05-13] MEDS: ENSURE CLEAR 237 ML LIQUID (MIX BERRY) PO SCH ×2 (10:47→14:03)
[2021-05-13] MEDS ORDERED: MAGNESIUM OXIDE 400 MG TABLET PO ONE (11:00)
--- NOTE | 2021-05-13 12:20 | NUR ---
RN NOTE CONTACTED [facility]. OVER THE PHONE HANDOFF REPORT DENIED. REQUESTED FAX OF HANDOFF. WILL FAX TO [phone]
--- NOTE | 2021-05-13 14:20 | NUR ---
RN NOTE PATIENT DISCHARGED IN STABLE CONDITION. REPORT GIVEN TO EMT AT BEDSIDE.
[2021-05-13] MEDS: HYDROMORPHONE 1 MG/1 ML DISP.SYRIN IV PRN (14:29)
== END 2021-05-13 15:04 | DRG 552 ==
LOC: ER 08:46 → MEDSG1 13:32
PROVIDERS: ADMIT Nurse Practitioner Acute Care; ATTEND Nurse Practitioner Acute Care
DX: M51.37 Other intervertebral disc degeneration, lumbosacral region (principal); N39.0 Urinary tract infection, site not specified; F11.20 Opioid dependence, uncomplicated; M48.55XA Collapsed vertebra, not elsewhere classified, thoracolumbar region, initial encounter for fracture; J98.11 Atelectasis; K21.9 Gastro-esophageal reflux disease without esophagitis; M06.9 Rheumatoid arthritis, unspecified; Z85.3 Personal history of malignant neoplasm of breast; Z96.659 Presence of unspecified artificial knee joint; J44.9 Chronic obstructive pulmonary disease, unspecified; E11.9 Type 2 diabetes mellitus without complications; F41.9 Anxiety disorder, unspecified; Z20.822 Contact with and (suspected) exposure to COVID-19; M81.0 Age-related osteoporosis without current pathological fracture; Z96.641 Presence of right artificial hip joint; F32.A Depression, unspecified; Z88.5 Allergy status to narcotic agent; Z91.040 Latex allergy status; Z79.84 Long term (current) use of oral hypoglycemic drugs; Z79.899 Other long term (current) drug therapy; Z74.09 Other reduced mobility; Z87.01 Personal history of pneumonia (recurrent); Z74.01 Bed confinement status; G24.01 Drug induced subacute dyskinesia; G89.4 Chronic pain syndrome; M85.80 Other specified disorders of bone density and structure, unspecified site; B96.89 Other specified bacterial agents as the cause of diseases classified elsewhere; Z98.1 Arthrodesis status; K59.00 Constipation, unspecified; K80.20 Calculus of gallbladder without cholecystitis without obstruction
CPT/HCPCS: 36415; 71045-TC; 80048-TC; 80061-TC; 80076-TC; 81001; 82962-TC; 83690-TC; 83735-TC; 84100-TC; 84484-TC; 85025-TC; 87081-TC; 87086-TC; 97112-TC; 97530-TC; G0378; J0696; J1170; J1650; J1815; J2405; J3490; J7030; J7060; U0003

== ENCOUNTER 2021-05-16 18:17 | Emergency (ER) | payer MEDICARE ==
[~2021-05-16] VITALS: Ht 160 cm; Wt 54.4 kg
[~2021-05-16 18:17] MED LIST changes: +ACET650S11 RC; -AMOX-430 PO; -ERGO50CA PO; -FENT1PAT5 TD; -HYDR-4075 PO; +HYDR4TAB4 PO; -HYDR8TAB2 PO; +HYPR15DR4 EACHEYE; -IPRA3AMP23 IH; -LOPE2CAP PO; -LORA-258 PO; +METF-440 PO; -METF-881 PO; +MINE133E RC; -NA P133E RC; -PETR113O TP; +TRAM50TA2 PO; -TRIA15OI9 TP
--- NOTE | 2021-05-16 18:17 | NUR ---
PT BIB PA FROM [facility] C/O BACK PAIN, BILATERAL SHOULDER AND KNEE CHRONIC PAIN. PT IS AAOX3, NOT IN RESPIRATORY DISTRESS, V/S STABLE, KEPT RESTED AND COMFORTABLE. WILL CONTNUE TO MONITOR.
--- NOTE | 2021-05-16 18:40 | NUR ---
PER PT SHE NORMALLY TAKING DILAUDID TABLET FOR CHRONIC PAIN NO ADVERSE REACTION. MD MARKHAM.
[2021-05-16] MEDS ORDERED: HYDROMORPHONE HCL 2 MG TABLET ONE (18:44)
--- NOTE | 2021-05-16 18:45 | NUR ---
WAY INSPECTOR AT BEDSIDE FOR XRAY.
[2021-05-16] MEDS ORDERED: HYDROMORPHONE HCL 2 MG TABLET PO PRN ×3 (19:00)
--- NOTE | 2021-05-16 19:16 | NUR ---
URINE COLLECTED AND SENT
--- NOTE | 2021-05-16 19:16 | NUR ---
REPORT GIVEN TO NURSE COCHRAN FOR ITZ
[2021-05-16 19:40] LABS: BILIRUBIN,URINE NEGATIVE (NEGATIVE); COLOR,URINE YELLOW (YELLOW); LEUKOCYTE ESTERASE ,URINE NEGATIVE (NEGATIVE); NITRITE, URINE NEGATIVE (NEGATIVE); PH,URINE 5.5 (5.0-8.0); PROTEIN,URINE NEGATIVE (NEGATIVE); UGLUCOSE NEGATIVE (NEGATIVE); UROBILINOGEN,URINE 0.2 EU/dL (0.2)
[2021-05-16] MEDS ORDERED: HYDR4TAB4 PO (20:25)
--- NOTE | 2021-05-16 23:37 | NUR ---
CALLED [facility] AND HAVE NO BLS AVAILABLE
--- NOTE | 2021-05-16 23:51 | NUR ---
CALLED [facility] FOR TRANSPORTED AND HAD NO BLS AVAILABLE FOR TONIGHT
--- NOTE | 2021-05-17 01:23 | NUR ---
CALLED [facility]. NO BLS AVAILABLE FOR THE NIGHT.
--- NOTE | 2021-05-17 02:02 | NUR ---
CALLED [facility] AND THEY ARE UNABLE TO TRANSPORT.
--- NOTE | 2021-05-17 02:05 | NUR ---
CALLED [facility] AND NO BLS AVAILABLE TONIGHT.
--- NOTE | 2021-05-17 03:06 | NUR ---
PT SLEEPING COMOFRTABLY EASILY AROUSABLE BREATHING EVEN AND UNLABORED. ALL V/S STABLE.
--- NOTE | 2021-05-17 08:00 | NUR ---
THE PATIENT IS SLEEPING. EASILY RESPONSIVE TO VERBAL STIMULI. RESPIRATION REGULAR AND UNLABORED. WILL CONTINUE TO MONITOR THE PATIENT.
--- NOTE | 2021-05-17 09:35 | NUR ---
[facility] CALLED FOR TRANSPORT ETA 60 MINS.
--- NOTE | 2021-05-17 09:45 | NUR ---
REPORT GIVEN TO NURSE HOLLIS FROM [facility]
--- NOTE | 2021-05-17 10:18 | NUR ---
REPORT GIVEN TO AMBULANCE STAFF
--- NOTE | 2021-05-17 10:20 | NUR ---
Patient discharged to SNF in stable condition. Written and verbal after care instructions given. Patient verbalizes understanding of instruction.
[2021-05-17 10:21] VITALS: BP 126/64
== END 2021-05-17 10:22 ==
LOC: ER 18:21
DX: G89.4 Chronic pain syndrome (principal); M25.551 Pain in right hip; M25.561 Pain in right knee; J44.9 Chronic obstructive pulmonary disease, unspecified; F11.90 Opioid use, unspecified, uncomplicated; K21.9 Gastro-esophageal reflux disease without esophagitis; E11.9 Type 2 diabetes mellitus without complications; Z88.5 Allergy status to narcotic agent; Z91.040 Latex allergy status; Z79.1 Long term (current) use of non-steroidal anti-inflammatories (NSAID); Z79.84 Long term (current) use of oral hypoglycemic drugs; Z79.52 Long term (current) use of systemic steroids
CPT/HCPCS: 73502; 73564-TC

== ENCOUNTER 2022-03-04 18:49 | Emergency (ER) | payer MEDICARE ==
[~2022-03-04] VITALS: Ht 160 cm; Wt 55.3 kg
--- NOTE | 2022-03-04 19:25 | NUR ---
AUBRIE R881 THIS 71/F WITH CC OF COUGH AND CONGESTION FOR WEEKS. PATIENT CLAIMED THAT SHE ALSO HAS A DISLOCATED RIGHT HIP WHICH WAS SHOWN ON HER XRAY A MONTH AGO BUT NOTHING HAS BEEN DONE. SHE COMPLAINTS OF PAIN SCALE 7/10. PATIENT ISATTACHED TO MONITOR. VITALS CHECKED. -SOB, SATURATING WELL, NO CP.
[2022-03-04 21:31] LABS: BASOPHILS % (AUTO) 0.2 % (0.0-2.0); EOSINOPHILS % (AUTO) 2.4 % (0.0-6.0); HEMATOCRIT 40 % (33-45); LYMPHOCYTES # (AUTO) 2.1 K/uL (0.8-4.8); LYMPHOCYTES % (AUTO) 36.3 % (20.0-44.0); MEAN CORPUSCULAR HGB CONC 32 g/dl (31.0-36.0); MEAN CORPUSCULAR VOLUME 95 fL (82-100); MONOCYTES # (AUTO) 0.5 K/uL (0.1-1.30); MONOCYTES % (AUTO) 8.2 % (2.0-12.0); NEUTROPHILS # (AUTO) 3.1 K/uL (1.8-8.9); NEUTROPHILS % (AUTO) 52.9 % (43.0-81.0); PLATELET COUNT (AUTO) 161 K/uL (150-450); RED BLOOD CELL COUNT(AUTO) 4.24 MIL/uL (4.0-5.2); WHITE BLOOD COUNT (AUTO) 5.8 K/uL (4.3-11.0)
[2022-03-04] MEDS ORDERED: KETOROLAC TROMETHAMINE INJ 30 MG/ML VIAL ONE (21:46)
--- NOTE | 2022-03-04 21:55 | NUR ---
XRAY DONE AT BEDSIDE
[2022-03-04] MEDS ORDERED: KETOROLAC TROMETHAMINE INJ 60 MG/2 ML VIAL IM ONE (22:00)
[2022-03-04 22:11] LABS: CALCIUM, SERUM 9.1 mg/dL (8.5-10.1); CARBON DIOXIDE 30 mmol/L (21-32); CHLORIDE 102 mmol/L (98-107); GLUCOSE 137 mg/dL (74-106); SODIUM SERUM 139 mmol/L (136-145); UREA NITROGEN, BLOOD 13 mg/dL (7-18)
--- NOTE | 2022-03-04 22:42 | NUR ---
[facility] CALLED FOR BLS GOING BACK TO SNF PER SUHA ETA - 1 HOUR
--- NOTE | 2022-03-04 23:58 | NUR ---
REPORT GIVEN TO EMT ELAINA OF [id number].
[2022-03-05 00:01] VITALS: BP 112/73
--- NOTE | 2022-03-05 00:05 | NUR ---
CALLED [facility]. REPORT GIVEN TO [facility] MARIA C
--- NOTE | 2022-03-05 00:05 | NUR ---
TRANSFERRED PATIENT TO FACILITY VIA [facility]
== END 2022-03-05 00:10 | disposition short-term general hospital (02) ==
LOC: ER 18:51
DX: R05.9 Cough, unspecified (principal); I10 Essential (primary) hypertension; E11.9 Type 2 diabetes mellitus without complications; J44.9 Chronic obstructive pulmonary disease, unspecified; K21.9 Gastro-esophageal reflux disease without esophagitis; M06.9 Rheumatoid arthritis, unspecified; Z96.641 Presence of right artificial hip joint; Z88.8 Allergy status to other drugs, medicaments and biological substances; Z79.899 Other long term (current) drug therapy
CPT/HCPCS: 99284; 71045; 96372; 72170; 85025; 80048; 36415; 84484; J1885

== ENCOUNTER 2022-07-05 17:50 | Inpatient (IN) | payer MEDICARE ==
[~2022-07-05] VITALS: Ht 160 cm; Wt 59.9 kg
[~2022-07-05 17:50] MED LIST changes: +PILOCARPINE HCL 5 MG TABLET PO SCH
--- NOTE | 2022-07-05 18:20 | NUR ---
BIBA FROM SNF FOR ELEVATED TEMP, COUGHING UP PHLEGM FOR APPROXIMATELY 1 WEEK. PATIENT A/O X 3.
--- NOTE | 2022-07-05 18:20 | NUR ---
LEFT AC # 20 G AND LEFT WRIST # 20 G SL ESTABLISHED. 16 FR LI CATHETER INSERTED AND URINE SAMPLE OBTAINED.
[2022-07-05] MEDS ORDERED: IPRATROPIUM NEB FS 0.5 MG/2.5 ML AMPUL.NEB ONE (18:30)
[2022-07-05] MEDS ORDERED: ACETAMINOPHEN ES 500 MG TABLET PO ONE (18:30)
[2022-07-05] MEDS ORDERED: ALBUTEROL FS 2.5 MG/3 ML VIAL.NEB ONE (18:30)
[2022-07-05] MEDS ORDERED: ALBUTEROL FS 2.5 MG/3 ML VIAL.NEB NEB ONE (18:30)
[2022-07-05] MEDS ORDERED: IPRATROPIUM NEB FS 0.5 MG/2.5 ML AMPUL.NEB NEB ONE (18:30)
[2022-07-05] MEDS ORDERED: PIPERACILLIN /TAZOBACTAM 3.375 G in IV D5W 50 ML IV ONE ×4 (18:30)
[2022-07-05] MEDS ORDERED: IV NS 0.9% 1,000 ML BAG IV ONE ×3 (18:30→21:30)
[2022-07-05 18:57] LABS: ABG BASE EXCESS 2.4 mmol/L; ABG PCO2 43.1 mmHg (35.0-45.0); ABG PO2 55.7 mmHg (75.0-100.0); COHb 0.3 % (0.5-1.5); MetHb 0.8 % (0.0-1.5); O2Hb 87.4 % (94.0-97.0); SITE, ABG Right Radial; VENT MODE, BG 4 LPM NC
--- NOTE | 2022-07-05 18:58 | NUR ---
RT AT BEDSIDE FOR BREATHING TX
--- NOTE | 2022-07-05 19:00 | NUR ---
ZOSYN 3.375 G IV ADMINISTERED PER DAY SHIFT RN.
--- NOTE | 2022-07-05 19:03 | NUR ---
RAPID FLU AND COVID SWABS OBTAINED AND SENT TO LAB
[2022-07-05] MEDS ORDERED: METH750T3 PO (19:21)
[2022-07-05] MEDS ORDERED: TRAM100T34 PO (19:21)
[2022-07-05] MEDS ORDERED: POLY15DR40 EACHEYE (19:21)
[2022-07-05] MEDS ORDERED: ACET-868 PO (19:21)
[2022-07-05] MEDS ORDERED: CLON0.5T4 PO (19:21)
[2022-07-05] MEDS ORDERED: IPRA42SP (19:21)
[2022-07-05] MEDS ORDERED: HYDR-4303 PO (19:21)
[2022-07-05] MEDS ORDERED: LOPE2CAP PO (19:21)
[2022-07-05] MEDS ORDERED: HYDR4TAB57 PO (19:21)
[2022-07-05] MEDS ORDERED: IPRA3AMP23 IH (19:21)
[2022-07-05] MEDS ORDERED: MELA5TAB PO (19:21)
[2022-07-05] MEDS ORDERED: MECL-159 PO (19:21)
[2022-07-05] MEDS ORDERED: LIDO1ADH71 TP (19:21)
[2022-07-05] MEDS ORDERED: CALC500T52 PO (19:21)
[2022-07-05] MEDS ORDERED: LORA-258 PO (19:21)
[2022-07-05] MEDS ORDERED: GUAI100S11 PO (19:21)
[2022-07-05] MEDS ORDERED: ZINC113O14 TP (19:21)
[2022-07-05] MEDS ORDERED: NA P133E RC (19:21)
[2022-07-05] MEDS ORDERED: PILO5TAB10 PO (19:21)
[2022-07-05] MEDS ORDERED: CHOL100043 PO (19:21)
--- NOTE | 2022-07-05 19:30 | NUR ---
PT W/ TYLENOL ORDER, REFUSED BY PT AT THIS TIME; PT STATES THAT SHE IS "ALLERGIC TO TYLENOL".
--- NOTE | 2022-07-05 19:33 | NUR ---
ALL AROUND GEAR MACHINE OPERATOR AT PT'S BEDSIDE
--- NOTE | 2022-07-05 19:34 | NUR ---
YOUTH COORDINATOR AT BEDSIDE FOR XRAY
--- NOTE | 2022-07-05 19:35 | NUR ---
URINE SAMPLE COLLECTED AND SENT TO LAB
[2022-07-05] MEDS ORDERED: ASPIRIN EC 325 MG TABLET.DR PO ONE ×2 (20:00→20:38)
[2022-07-05 20:53] LABS: BASOPHILS % (AUTO) 0.3 % (0.0-2.0); EOSINOPHILS % (AUTO) 0.1 % (0.0-6.0); HEMATOCRIT 41 % (33-45); HEMOGLOBIN 13.2 g/dL (11.5-14.8); LYMPHOCYTES # (AUTO) 1.3 K/uL (0.8-4.8); LYMPHOCYTES % (AUTO) 15.7 % (20.0-44.0); MEAN CORPUSCULAR HGB CONC 32 g/dl (31.0-36.0); MEAN CORPUSCULAR VOLUME 96 fL (82-100); MONOCYTES # (AUTO) 0.6 K/uL (0.1-1.30); MONOCYTES % (AUTO) 7.5 % (2.0-12.0); NEUTROPHILS # (AUTO) 6.2 K/uL (1.8-8.9); NEUTROPHILS % (AUTO) 76.4 % (43.0-81.0); PLATELET COUNT (AUTO) 127 K/uL (150-450); RED BLOOD CELL COUNT(AUTO) 4.25 MIL/uL (4.0-5.2); WHITE BLOOD COUNT (AUTO) 8.1 K/uL (4.3-11.0)
[2022-07-05 21:08] LABS: CALCIUM, SERUM 7.9 mg/dL (8.5-10.1); CARBON DIOXIDE 22 mmol/L (21-32); CHLORIDE 108 mmol/L (98-107); GLUCOSE 113 mg/dL (74-106); POTASSIUM 3.8 mmol/L (3.5-5.1); SODIUM SERUM 138 mmol/L (136-145); UREA NITROGEN, BLOOD 19 mg/dL (7-18)
[2022-07-05 21:14] LABS: ALANINE AMINOTRANSFERASE 15 U/L (12-78); ALBUMIN 2.2 g/dL (3.4-5.0); ALKALINE PHOSPHATASE 55 U/L (46-116); ASPARTATE AMINOTRANSFERASE 30 U/L (15-37); BILIRUBIN,DIRECT 0.1 mg/dL (0.0-0.2); BILIRUBIN,TOTAL 0.7 mg/dL (0.2-1.0); TOTAL PROTEIN, SERUM 5.7 g/dL (6.4-8.2)
[2022-07-05 21:19] LABS: BILIRUBIN,URINE 1+ (NEGATIVE); COLOR,URINE YELLOW (YELLOW); LEUKOCYTE ESTERASE ,URINE 2+ (NEGATIVE); NITRITE, URINE POSITIVE (NEGATIVE); PH,URINE 5.5 (5.0-8.0); PROTEIN,URINE 1+ mg/dl (NEGATIVE); UGLUCOSE NEGATIVE (NEGATIVE); UROBILINOGEN,URINE 0.2 EU/dL (0.2)
[2022-07-05 21:26] LABS: BACTERIA,URINE 2+ /HPF (None Seen); SQUAMOUS EPITHELIAL CELL,UR 0-2 /HPF (None Seen); WBC,URINE 21-50 /HPF (0-3)
[2022-07-05] MEDS ORDERED: ACETAMINOPHEN 325 MG TABLET PO PRN (22:00)
[2022-07-05] MEDS ORDERED: ONDANSETRON HCL/PF 4 MG/2 ML VIAL IVP PRN (22:00)
[2022-07-05] MEDS ORDERED: IPRATROPIUM/ALBUTEROL INHALER IH PRN (22:00)
[2022-07-05] MEDS ORDERED: DEXTROSE 50%-WATER 50 ML DISP.SYRIN IV PRN (22:00)
[2022-07-05] MEDS ORDERED: HYDROCODONE/APAP 5/325MG TABLET PO PRN (22:00)
[2022-07-05] MEDS ORDERED: MAGNESIUM HYDROXIDE 30 ML UDC PO PRN (22:00)
[2022-07-05] MEDS ORDERED: NOREPINEPHRINE 8 MG in IV NS 0.9% 242 ML IV PRN (22:00)
[2022-07-05] MEDS ORDERED: ZOLPIDEM TARTRATE 5 MG TABLET PO PRN (22:00)
[2022-07-05] MEDS ORDERED: MAG HYDROX/AL HYDROX/SIMETH 30 ML UDC PO PRN (22:00)
[2022-07-05] MEDS ORDERED: Z GUARD REMEDY 4 OZ OINT TP PRN (22:00)
[2022-07-05] MEDS ORDERED: IV NS 0.9% 1,000 ML IV PRN (22:00)
[2022-07-05] MEDS ORDERED: methylPREDNISolone SOD SUCC 40 MG/ML VIAL IV ONE (22:19)
[2022-07-05] MEDS ORDERED: ALBUMIN 25% 12.5 GM/50 ML BOTTLE IV ONE (22:30)
--- NOTE | 2022-07-05 22:50 | NUR ---
CHANGE CONTROL MANAGER AT PT'S BEDSIDE
[2022-07-05] MEDS: BLOOD SUGAR DIAGNOSTIC 1 EACH STRIP VI SCH (22:58)
[2022-07-05] MEDS ORDERED: VANCOMYCIN 1 GM in IV D5W 250ml IV ONE (23:00)
[2022-07-05] MEDS ORDERED: ALBUMIN 25% 50 ML IV ONE (23:03)
[2022-07-05] MEDS ORDERED: ENOXAPARIN SODIUM 40 MG/0.4 ML DISP.SYRIN SQ ONE (23:03)
[2022-07-05] MEDS ORDERED: NOREPINEPHRINE 4 MG/4 ML AMPUL IV ONE (23:04)
[2022-07-05] MEDS ORDERED: methylPREDNISolone SOD SUCC 40 MG/ML VIAL ONE (23:04)
--- NOTE | 2022-07-05 23:35 | NUR ---
INITIATED PT ON LEVOPHED DRIP AT 0.1MCG/KG/MIN BP 82/32 HR 70 PT DENIES S/SX WILL CONTINUE TO TITRATE ORDERED
[2022-07-05] MEDS: ENOXAPARIN SODIUM 40 MG/0.4 ML DISP.SYRIN SQ SCH (23:38)
--- NOTE | 2022-07-05 23:54 | NUR ---
REPORT GIVEN TO RR CARD SETTER FOR ITZ
[2022-07-06] VITALS (49 sets, daily range): BP systolic 83–156; BP diastolic 41–114
--- NOTE | 2022-07-06 00:17 | NUR ---
PER LAB; PT IS HARD STICK; NOT ABLE TO DRAW TROPONIN. WILL TRY AGAIN. ADVISED CLINICAL INFORMATICS MANAGER TO NOTIFY .
--- NOTE | 2022-07-06 00:23 | NUR ---
GETTING TRANSFERRED TO ICU UNDER ACLS
--- NOTE | 2022-07-06 01:00 | NUR ---
ICU ADMISSION RECEIVED PT VIA LUZ MARINARGAIL ACCOMPANIED BY GRINDER WATCH PARTS AND ANUJ, NOELO X3, COOPERATIVE. ATTACHED TO SUMMER CLERK. 02 AT 6LPM VIA NASAL CANNULA, TOLERATING WELL. FEBRILE AT 100.3. ICE PACK PLACED AT AXILLA AND GROIN AREA. BED BATH DONE. IV ACCESS AT RIGHT AC #20, RIGHT WRIST #20. ON LEVO AT 0.1MCG/KG/MIN. WILL TITRATE PER ORDER. SKIN REDNESS AT UPPER SACRUM. LABS AND ORDERS REVIEWED. SAFETY MEASURES INITIATED. KEPT COMFORTABLE. WILL CONTINUE TO MONITOR.
[2022-07-06] MEDS ORDERED: VANCOMYCIN 1 GM VIAL ONE (01:37)
[2022-07-06] MEDS ORDERED: PIPERACILLIN /TAZOBACTAM 3.375 G VIAL IV ONE (01:56)
[2022-07-06] MEDS ORDERED: NOREPINEPHRINE 8 MG in IV NS 0.9% 242 ML IV PRN (02:38)
--- NOTE | 2022-07-06 05:04 | NUR ---
PT TEMP 98.6. MONITOR SHOWING SINUS JENSEN. ECG WAS ORDERED STAT. KEPT COMFORTABLE. WILL CONTINUE TO MONITOR.
[2022-07-06] MEDS: BLOOD SUGAR DIAGNOSTIC 1 EACH STRIP VI SCH ×4 (06:38→22:30)
--- NOTE | 2022-07-06 07:18 | NUR ---
PT IS HARD STICK PER CONFECTIONERY LABORATORY MANAGER AND ER NURSE. LAB DRAWN POSTPONED UNTIL PT HAS PICC LINE. CHARGE NURSE AWARE. ENDORSED.
[2022-07-06] MEDS: PANTOPRAZOLE 40 MG TABLET.DR PO SCH (07:27)
[2022-07-06] MEDS ORDERED: ZOSYN IVPB 3.375 G in IV D5W 50ml IV SCH ×3 (08:00)
--- NOTE | 2022-07-06 08:00 | NUR ---
rn notes received patient in the bed a/ox3/4 , on [id number], patient has no sob noted at this time, due medication administered. infusing Levophed 0.02 mcg/kg/min, and ns on LAC area intact. Castorena draining via gravity. patient able to turn and reposition in the bed. tolerated breakfast 25% self. call light within to reach. will follow up.
[2022-07-06] MEDS ORDERED: ASPIRIN EC 81 MG TABLET.DR PO SCH (09:00)
--- NOTE | 2022-07-06 09:00 | NUR ---
rn notes patient get picc line inserted.
--- NOTE | 2022-07-06 10:00 | NUR ---
rn notes held Levophed at this time bp 117/ 84, p-62.
[2022-07-06] MEDS: IV NS 0.9% 1,000 ML IV PRN (10:15)
[2022-07-06 11:14] LABS: BASOPHILS % (AUTO) 0.1 % (0.0-2.0); HEMATOCRIT 34 % (33-45); HEMOGLOBIN 11.1 g/dL (11.5-14.8); LYMPHOCYTES # (AUTO) 0.8 K/uL (0.8-4.8); MEAN CORPUSCULAR HGB CONC 33 g/dl (31.0-36.0); MEAN CORPUSCULAR VOLUME 95 fL (82-100); MONOCYTES # (AUTO) 0.3 K/uL (0.1-1.30); MONOCYTES % (AUTO) 5.3 % (2.0-12.0); NEUTROPHILS # (AUTO) 4.4 K/uL (1.8-8.9); NEUTROPHILS % (AUTO) 80.6 % (43.0-81.0); PLATELET COUNT (AUTO) 100 K/uL (150-450); RED BLOOD CELL COUNT(AUTO) 3.55 MIL/uL (4.0-5.2); WHITE BLOOD COUNT (AUTO) 5.5 K/uL (4.3-11.0)
[2022-07-06 11:32] LABS: CALCIUM, SERUM 6.8 mg/dL (8.5-10.1); CREATININE 0.8 mg/dL (0.6-1.3); MAGNESIUM 1.6 mg/dL (1.8-2.4); PHOSPHORUS 2.4 mg/dL (2.5-4.9); POTASSIUM 3.2 mmol/L (3.5-5.1)
--- NOTE | 2022-07-06 12:00 | NUR ---
RN NOTES BS- 140 MG/DL , PATIENT REFUSED FOOD BECAUSE OF NOT LIKED, NO COVERAGE GIVEN, DUE MEDICATION ADMINISTERED. PATIENT HAS TREMORS TARDIVE DYSKINESIA, NOTIFIED MD ABOUT VERIFICATION OF HOME MEDICATION. PATIENT NOTED HAD ASPIRIN, FLU, AND COVID VACCINATION ALLERGY. PHARMACY AWARE OF.
[2022-07-06] MEDS: PIPERACILLIN /TAZOBACTAM 3.375 G in IV D5W 100 ML IV SCH ×2 (12:13→20:12)
[2022-07-06] MEDS: HYDROCORTISONE SOD SUCCINATE 100 MG/2 ML VIAL IV SCH ×3 (12:13→20:12)
[2022-07-06] MEDS ORDERED: K PHOS NEUTRAL 250 MG TABLET PO ONE (13:00)
[2022-07-06] MEDS: VANCOMYCIN 0.75 GM in IV D5W 250 ML IV SCH (14:00)
[2022-07-06] MEDS ORDERED: LOPERAMIDE HCL (2 MG CAP) 2 MG CAPSULE PO PRN (14:30)
[2022-07-06] MEDS ORDERED: ACETAMINOPHEN 325 MG TABLET PO PRN (14:30)
[2022-07-06] MEDS ORDERED: IPRATROPIUM NEB FS 0.5 MG/2.5 ML AMPUL.NEB NEB PRN (14:30)
[2022-07-06] MEDS ORDERED: ALBUTEROL FS 2.5 MG/3 ML VIAL.NEB NEB PRN (14:30)
[2022-07-06] MEDS ORDERED: NA PHOS,M-B/NA PHOS,DI-BA 1 EA ENEMA RC PRN (14:30)
[2022-07-06] MEDS ORDERED: ACETAMINOPHEN 650 MG/SUPP.RECT RC PRN (14:30)
[2022-07-06] MEDS ORDERED: ONDANSETRON 4 MG TAB.RAPDIS PO PRN (14:30)
[2022-07-06] MEDS ORDERED: GUAIFENESIN 300 MG/15 ML UDC PO PRN (14:30)
[2022-07-06] MEDS ORDERED: BISACODYL SUPP (10 MG) 10 MG/SUPP.RECT SUPP.RECT RC PRN (14:30)
[2022-07-06] MEDS ORDERED: MECLIZINE HCL 25 MG TABLET PO PRN (14:30)
[2022-07-06] MEDS ORDERED: MAGNESIUM HYDROXIDE 30 ML UDC PO PRN (14:30)
[2022-07-06] MEDS ORDERED: HYDROCODONE/APAP 5/325MG TABLET PO PRN (14:30)
--- NOTE | 2022-07-06 15:03 | NUR ---
rn notes administered narco 5/325 mg po prn for generalized pain 10/31 per patient request bp 129/75,p-68, r-20.
[2022-07-06] MEDS ORDERED: LIDOCAINE 5% (PATCH) 1 EA PATCH TP PRN (15:30)
[2022-07-06] MEDS: TRAMADOL HCL 50 MG TABLET PO SCH ×2 (17:00→17:18)
[2022-07-06] MEDS: METHOCARBAMOL (750MG) 750 MG TABLET PO SCH ×2 (17:00→17:56)
[2022-07-06] MEDS: GABAPENTIN 400 MG CAPSULE PO SCH (17:14)
[2022-07-06] MEDS: clonazePAM 0.5 MG TABLET PO SCH (17:18)
[2022-07-06] MEDS: CARVEDILOL 3.125 MG TABLET PO SCH (17:18)
[2022-07-06] MEDS: CALCIUM CARBONATE (1250) 500 MG TABLET PO SCH (17:18)
[2022-07-06] MEDS: GLUCERNA SHAKE 237 ML CAN PO SCH (17:19)
--- NOTE | 2022-07-06 18:00 | NUR ---
MANAGING PRINCIPAL NOTES: PT TRANSFERRED FROM ICU TO [facility] VIA GURNEY BY THIS RN AND KATHERINE DAVILA. RECEIVED REPORT FROM GIOVANNI MURPHY AT BEDSIDE. VITALS WNL, TELE MONITOR READS SR, HR= 68. PT ORIENTED TO UNIT AND STAFF, WILL ENDORSE TO PM SHIFT FOR ITZ.
[2022-07-06] MEDS: POLYVINYL ALCOHOL 15 ML BOTTLE EACHEYE SCH (18:14)
[2022-07-06] MEDS: HYDROMORPHONE HCL 2 MG TABLET PO PRN (18:15)
--- NOTE | 2022-07-06 18:15 | NUR ---
RN NOTES ADMINISTERED DILAUDID 4 MG PO PRN FOR GENERALIZED PAIN 6/10 PER PATIENT REQUEST, ALSO PATIENT GOING TO TRANSFER TO THE TELE UNIT ROOM 307 BED2 . REPORT GIVEN RN FOLLOW PLAN OF CARE.
--- NOTE | 2022-07-06 19:30 | NUR ---
ELECTRIC DRILL OPERATOR OPENING NOTE RECEIVED PT AWAKE IN BED. A/O X4 AND ABLE TO MAKE NEEDS KNOWN. PT ON O2 @ 6 LPM VIA NC, TOLERATING WELL. NO SOB OR S/S OF RESPIRATORY DISTRESS. BREATHING EVEN AND UNLABORED. ON EXTERNAL LEGEND MAKER READING SR 76 BPM. IV ACCESS LEILA PICC, INTACT AND PATENT. WITH LI CATH DRAINING URINE BY GRAVITY. SAFETY PRECAUTIONS IN PLACE. BED IN LOWEST LOCKED POSITION, HOB ELEVATED, SIDE RAILS UPX 3, AND CALL LIGHT AND TABLE WITHIN REACH. ALL NEEDS MET AT THIS TIME.
[2022-07-06] MEDS: ALBUTEROL FS 2.5 MG/3 ML VIAL.NEB NEB SCH (20:10)
[2022-07-06] MEDS: IPRATROPIUM NEB FS 0.5 MG/2.5 ML AMPUL.NEB NEB SCH (20:10)
[2022-07-06] MEDS: LORAZEPAM 0.5 MG TABLET PO PRN (20:12)
[2022-07-06] MEDS: ENOXAPARIN SODIUM 40 MG/0.4 ML DISP.SYRIN SQ SCH (20:13)
[2022-07-06] MEDS: MIRTAZAPINE 15 MG TABLET PO SCH (22:05)
[2022-07-06] MEDS: *INSULIN REGULAR(HUMULIN R)HUM 100 UNIT/ML VIAL SQ PRN (22:31)
--- NOTE | 2022-07-06 22:31 | NUR ---
RN NOTE PT REFUSED INSULIN AT THIS TIME. CURRENT BS 184. EXPLAINED RISKS OF REFUSING INSULIN, PT STILL REFUSED.
[2022-07-07] VITALS: BP 109/69
[2022-07-07] MEDS: IPRATROPIUM NEB FS 0.5 MG/2.5 ML AMPUL.NEB NEB SCH ×4 (01:30→20:24)
[2022-07-07] MEDS: ALBUTEROL FS 2.5 MG/3 ML VIAL.NEB NEB SCH ×4 (01:30→20:24)
[2022-07-07] MEDS: VANCOMYCIN 0.75 GM in IV D5W 250 ML IV SCH ×2 (01:55→15:44)
[2022-07-07 04:00] VITALS: BP 127/80
[2022-07-07] MEDS: IV NS 0.9% 1,000 ML IV PRN (04:51)
[2022-07-07] MEDS: HYDROCORTISONE SOD SUCCINATE 100 MG/2 ML VIAL IV SCH ×3 (04:53→20:25)
[2022-07-07] MEDS: PIPERACILLIN /TAZOBACTAM 3.375 G in IV D5W 100 ML IV SCH ×3 (04:53→20:26)
[2022-07-07] MEDS: HYDROMORPHONE HCL 2 MG TABLET PO PRN ×3 (05:06→22:45)
--- NOTE | 2022-07-07 05:06 | NUR ---
RN NOTE PT COMPLAINED OF PAIN 8/10 OF BACK. ADMINISTERED DILAUDID 4 MG FOR SEVERE PAIN ORDERED. MADE COMFORTABLE IN BED. ALL NEEDS MET AT THIS TIME.
[2022-07-07 06:18] LABS: BASOPHILS % (AUTO) 0.1 % (0.0-2.0); HEMATOCRIT 33 % (33-45); LYMPHOCYTES # (AUTO) 0.9 K/uL (0.8-4.8); LYMPHOCYTES % (AUTO) 17.2 % (20.0-44.0); MEAN CORPUSCULAR HGB CONC 34 g/dl (31.0-36.0); MEAN CORPUSCULAR VOLUME 95 fL (82-100); MONOCYTES # (AUTO) 0.4 K/uL (0.1-1.30); MONOCYTES % (AUTO) 7.5 % (2.0-12.0); NEUTROPHILS # (AUTO) 3.9 K/uL (1.8-8.9); NEUTROPHILS % (AUTO) 75.2 % (43.0-81.0); PLATELET COUNT (AUTO) 86 K/uL (150-450); RED BLOOD CELL COUNT(AUTO) 3.48 MIL/uL (4.0-5.2); WHITE BLOOD COUNT (AUTO) 5.2 K/uL (4.3-11.0)
[2022-07-07 06:29] LABS: CALCIUM, SERUM 8.2 mg/dL (8.5-10.1); CREATININE 0.8 mg/dL (0.6-1.3); PHOSPHORUS 2.4 mg/dL (2.5-4.9); POTASSIUM 3.3 mmol/L (3.5-5.1)
[2022-07-07] MEDS: BLOOD SUGAR DIAGNOSTIC 1 EACH STRIP VI SCH ×4 (06:30→21:18)
[2022-07-07] MEDS: INSULIN REGULAR, HUMAN 100 UNIT/ML 3 ML VIAL SQ PRN ×3 (06:30→17:28)
--- NOTE | 2022-07-07 06:44 | NUR ---
INVESTMENT REPRESENTATIVE CLOSING NOTE PT AWAKE IN BED. A/O X4 AND ABLE TO MAKE NEEDS KNOWN. PT ON O2 @ 6 LPM VIA NC, TOLERATING WELL. NO SOB OR S/S OF RESPIRATORY DISTRESS. BREATHING EVEN AND UNLABORED. ON EXTERNAL WEALTH MANAGEMENT ADVISOR READING SR 67 BPM. IV ACCESS LEILA PICC, INTACT AND PATENT. WITH LI CATH DRAINING URINE BY GRAVITY. ALL DUE MEDS GIVEN ORDERED. SAFETY PRECAUTIONS IN PLACE ALL NEEDS MET AT THIS TIME. BED IN LOWEST LOCKED POSITION, HOB ELEVATED, SIDE RAILS UPX 3, AND CALL LIGHT AND TABLE WITHIN REACH. ALL NEEDS MET AT THIS TIME AND WILL ENDORSE TO ONCOMING NURSE FOR ITZ.
[2022-07-07] MEDS ORDERED: PANTOPRAZOLE 40 MG TABLET.DR PO SCH (07:30)
--- NOTE | 2022-07-07 07:30 | NUR ---
ACADEMIC SERVICES PROFESSIONAL OPENING NOTES RECEIVED PATIENT ON BED AWAKE AND A/O X4. ON O2 AT 3.5L TOLERATING WELL. NO SOB NOTED. NOT IN DISTRESS. WITH NO COMPLAINTS OF PAIN OR DISCOMFORT AT THIS TIME. ON TELE MONITOR CURRENTLY READING SINUS RHYTHM WITH A-FIB AND AV PACING AT 65BPM. WITH LI CATHETER IN PLACED DRAINING CLEAR YELLOW URINE. SAFETY MEASURES IN PLACED. CALL LIGHT WITHIN REACH. BED ON LOWEST LOCKED POSITION, SIDE RAILS UP X2. WILL CONTINUE TO MONITOR.
[2022-07-07 08:00] VITALS: BP 108/64
[2022-07-07] MEDS ORDERED: POTASSIUM CHLORIDE 20 MEQ TAB.PRT.SR PO ONE (08:30)
[2022-07-07] MEDS: PILOCARPINE HCL 5 MG TABLET PO SCH ×3 (08:45→17:11)
[2022-07-07] MEDS: TRAMADOL HCL 50 MG TABLET PO SCH ×3 (09:00→17:00)
[2022-07-07] MEDS ORDERED: VALBENAZINE TOSYLATE 80 MG PO SCH (09:00)
[2022-07-07] MEDS ORDERED: ASPIRIN EC 81 MG TABLET.DR PO SCH (09:00)
[2022-07-07] MEDS: CARVEDILOL 3.125 MG TABLET PO SCH ×2 (09:00→17:08)
[2022-07-07] MEDS: PANTOPRAZOLE 40 MG TABLET.DR PO SCH (09:31)
[2022-07-07] MEDS: LORATADINE 10 MG TABLET PO SCH (09:31)
[2022-07-07] MEDS: GABAPENTIN 400 MG CAPSULE PO SCH ×3 (09:31→17:09)
[2022-07-07] MEDS: clonazePAM 0.5 MG TABLET PO SCH ×3 (09:31→17:09)
[2022-07-07] MEDS: CHOLECALCIFEROL 1,000 UNIT TABLET (VIT D3) PO SCH (09:31)
[2022-07-07] MEDS: GLUCERNA SHAKE 237 ML CAN PO SCH ×2 (09:31→17:11)
--- NOTE | 2022-07-07 09:31 | NUR ---
RN NOTE PATIENT WAS COMPLAINING OF PAIN AT THE BACK AT THE SCALE OF 8/10 AND ASKED FOR PAIN MEDICATION. PATIENT REFUSED ULTRAM. DILAUDID 4MG TAB WAS GIVEN PRN FOR PAIN. WILL MONITOR.
[2022-07-07] MEDS: POLYVINYL ALCOHOL 15 ML BOTTLE EACHEYE SCH ×3 (09:32→17:11)
[2022-07-07] MEDS: METHOCARBAMOL (750MG) 750 MG TABLET PO SCH ×4 (09:33→17:09)
[2022-07-07] MEDS: CALCIUM CARBONATE (1250) 500 MG TABLET PO SCH ×3 (09:33→17:09)
[2022-07-07] MEDS: MULTIVIT W/MINERALS 1 TAB TABLET PO SCH (09:33)
[2022-07-07] MEDS ORDERED: K PHOS NEUTRAL 250 MG TABLET PO ONE (11:00)
[2022-07-07 12:00] VITALS: BP 130/74
[2022-07-07 16:00] VITALS: BP 127/79
[2022-07-07] MEDS: MUPIROCIN OINT 2% 22 GM TUBE NS SCH (17:11)
[2022-07-07 17:30] LABS: LYMPHOCYTES % (MANUAL) 16 % (16-48); MONOCYTES % (MANUAL) 5 % (0-11.0); NEUTROPHILS % (MANUAL) 79 (42-76)
--- NOTE | 2022-07-07 18:55 | NUR ---
MARKETING OPERATIONS MANAGER CLOSING NOTES PATIENT ON BED AWAKE AND A/O X4. ON O2 AT 3.5L TOLERATING WELL. NO SOB NOTED. NOT IN DISTRESS. WITH NO COMPLAINTS OF PAIN OR DISCOMFORT AT THIS TIME. ON TELE MONITOR CURRENTLY READING SINUS RHYTHM WITH A-FIB AND AV PACING AT 71BPM. SOME DUE MEDS GIVEN. PATIENT REFUSED SOME OF HER MEDICATIONS. SAFETY MEASURES IN PLACED. CALL LIGHT WITHIN REACH. BED ON LOWEST LOCKED POSITION, SIDE RAILS UP X2. WILL ENDORSE TO NEXT SHIFT FOR ITZ.
--- NOTE | 2022-07-07 19:30 | NUR ---
PRODUCTION CONTROL TECHNOLOGIST OPENING NOTE RECEIVED PATIENT IN BED, AWAKE, ALERT AND ORIENTED X4. ABLE TO MAKE NEEDS KNOWN. AFEBRILE AND NOT IN ANY FORM OF ACUTE DISTRESS. ON O2 INHALATION VIA NASAL CANNULA AT 4LPM. WITH IV ACCESS ON LEILA PICC LINE RUNNING WITH NS AAT 80ML/HR. ON TELE MONITORING WITH CURRENT READING OF SR, A-FIB WITH AV PACING 65. SAFETY MEASURES IN PLACE. KEPT BED IN LOCKED AND IN LOW POSITION. SIDE RAILS UP X2. ADVISED TO USE THE CALL LIGHT WHEN IN NEED OF ASSISTANCE.
[2022-07-07] MEDS: ENOXAPARIN SODIUM 40 MG/0.4 ML DISP.SYRIN SQ SCH (20:28)
[2022-07-07 20:32] VITALS: BP 126/79
[2022-07-07] MEDS: MIRTAZAPINE 15 MG TABLET PO SCH (21:11)
[2022-07-08 00:11] VITALS: BP 123/57
[2022-07-08] MEDS: IV NS 0.9% 1,000 ML IV PRN (00:39)
[2022-07-08] MEDS: VANCOMYCIN 0.75 GM in IV D5W 250 ML IV SCH ×2 (01:10→16:24)
[2022-07-08] MEDS: ALBUTEROL FS 2.5 MG/3 ML VIAL.NEB NEB SCH ×4 (01:30→20:26)
[2022-07-08] MEDS: IPRATROPIUM NEB FS 0.5 MG/2.5 ML AMPUL.NEB NEB SCH ×4 (01:30→20:26)
[2022-07-08] MEDS: LORAZEPAM 0.5 MG TABLET PO PRN ×3 (02:50→22:15)
[2022-07-08] MEDS: HYDROCORTISONE SOD SUCCINATE 100 MG/2 ML VIAL IV SCH ×3 (04:27→17:19)
[2022-07-08] MEDS: PIPERACILLIN /TAZOBACTAM 3.375 G in IV D5W 100 ML IV SCH ×3 (04:27→21:51)
[2022-07-08 04:51] VITALS: BP 140/78
[2022-07-08] MEDS: HYDROMORPHONE HCL 2 MG TABLET PO PRN ×4 (06:14→21:52)
--- NOTE | 2022-07-08 06:17 | NUR ---
SPEECH PATHOLOGY TEACHER NOTE PATIENT C/O PAIN 12/31. TRIED TO REPOSITION AND OFFERED NON-PHARMACOLOGICAL INTERVENTION BUT PATIENT PREFERRED DILAUDID. MEDICATED ORDERED.
[2022-07-08] MEDS: BLOOD SUGAR DIAGNOSTIC 1 EACH STRIP VI SCH ×4 (06:30→22:01)
--- NOTE | 2022-07-08 06:30 | NUR ---
PROJECT MANAGEMENT INTERN CLOSING NOTE PATIENT IN BED, SLEEPING INTERMITTENTLY. ABLE TO MAKE NEEDS KNOWN. AFEBRILE AND NOT IN ANY FORM OF ACUTE DISTRESS. ON O2 INHALATION VIA NASAL CANNULA AT 4LPM. WITH IV ACCESS ON LEILA PICC LINE RUNNING WITH NS AT 80ML/HR. ON TELE MONITORING WITH CURRENT READING OF SR 71. MONITORED FOR ANY S/SX. OF HYPO/HYPERGLYCEMIA. MEDICATED ORDERED. CONTINUOUS ON IV ATB, MONITORED FOR ANY ADVERSE REACTION. SAFETY MEASURES IN PLACE. KEPT BED IN LOCKED AND IN LOW POSITION. SIDE RAILS UP X2. ADVISED TO USE THE CALL LIGHT WHEN IN NEED OF ASSISTANCE. ALL NURSING NEEDS ATTENDED. ENDORSED TO INCOMING SHIFT FOR CONTINUITY OF CARE.
[2022-07-08 06:35] LABS: BASOPHILS % (AUTO) 0.1 % (0.0-2.0); HEMATOCRIT 36 % (33-45); LYMPHOCYTES # (AUTO) 0.9 K/uL (0.8-4.8); LYMPHOCYTES % (AUTO) 12.7 % (20.0-44.0); MEAN CORPUSCULAR HGB CONC 34 g/dl (31.0-36.0); MEAN CORPUSCULAR VOLUME 95 fL (82-100); MONOCYTES # (AUTO) 0.5 K/uL (0.1-1.30); MONOCYTES % (AUTO) 6.9 % (2.0-12.0); NEUTROPHILS % (AUTO) 80.3 % (43.0-81.0); PLATELET COUNT (AUTO) 93 K/uL (150-450); RED BLOOD CELL COUNT(AUTO) 3.76 MIL/uL (4.0-5.2); WHITE BLOOD COUNT (AUTO) 7.4 K/uL (4.3-11.0)
[2022-07-08 07:07] LABS: CALCIUM, SERUM 8.2 mg/dL (8.5-10.1); CREATININE 0.7 mg/dL (0.6-1.3); MAGNESIUM 2.2 mg/dL (1.8-2.4); PHOSPHORUS 2.8 mg/dL (2.5-4.9); POTASSIUM 3.1 mmol/L (3.5-5.1)
--- NOTE | 2022-07-08 07:30 | NUR ---
EMU FARM WORKER OPENING NOTE RECEIVED PATIENT IN BED, AWAKE, VERY ANXIOUS, HAVING BODY TREMORS (PART OF BASELINE CONDITION BEFORE HOSPITAL ADMISSION), AND ALERT AND ORIENTED X 4. ABLE TO COMMUNICATE NEEDS. SHE IS ON OXYGEN VIA NC @ 3 LPM, WITH NO SOB. LUNG SOUNDS CLEAR TO AUSCULTATION. C/O ABDOMIAL PAIN DESPITE HAVING DILAUDI IV AT 6:00 AM. REFUSED TRAMADOL , STATING THAT SHE IS ALLERGIC TO TRAMADOL. SAFETY MEASURES IN PLACE. KEPT BED IN LOCKED AND IN LOW POSITION. SIDE RAILS UP X2. WILL CONTINUE TO MONITOR AND CARE FOR PATIENT PER HOSPITALIST PROVIDER'S POC.
[2022-07-08 08:00] VITALS: BP 124/76
[2022-07-08] MEDS: GABAPENTIN 400 MG CAPSULE PO SCH ×3 (08:18→17:23)
[2022-07-08] MEDS: LORATADINE 10 MG TABLET PO SCH (08:18)
[2022-07-08] MEDS: PANTOPRAZOLE 40 MG TABLET.DR PO SCH (08:18)
[2022-07-08] MEDS: METHOCARBAMOL (750MG) 750 MG TABLET PO SCH ×3 (08:18→18:34)
[2022-07-08] MEDS: MULTIVIT W/MINERALS 1 TAB TABLET PO SCH (08:18)
[2022-07-08] MEDS: CALCIUM CARBONATE (1250) 500 MG TABLET PO SCH ×2 (08:18→17:23)
[2022-07-08] MEDS: CHOLECALCIFEROL 1,000 UNIT TABLET (VIT D3) PO SCH (08:19)
[2022-07-08] MEDS: GLUCERNA SHAKE 237 ML CAN PO SCH ×2 (08:21→17:28)
[2022-07-08] MEDS: MUPIROCIN OINT 2% 22 GM TUBE NS SCH ×2 (08:21→17:21)
[2022-07-08] MEDS: CARVEDILOL 3.125 MG TABLET PO SCH ×2 (08:27→17:22)
[2022-07-08] MEDS: clonazePAM 0.5 MG TABLET PO SCH ×3 (08:33→17:25)
[2022-07-08] MEDS: PILOCARPINE HCL 5 MG TABLET PO SCH ×3 (08:33→17:25)
[2022-07-08] MEDS: TRAMADOL HCL 50 MG TABLET PO SCH ×2 (08:55→12:52)
[2022-07-08] MEDS: POLYVINYL ALCOHOL 15 ML BOTTLE EACHEYE SCH ×3 (09:38→17:19)
[2022-07-08] MEDS: POTASSIUM CHLORIDE 20 MEQ TAB.PRT.SR PO SCH ×3 (10:13→10:19)
[2022-07-08] MEDS ORDERED: ZOLPIDEM TARTRATE 5 MG TABLET PO PRN (10:30)
[2022-07-08 12:00] VITALS: BP 147/81
[2022-07-08 12:11] LABS: BAND % (MANUAL) 3 % (0.0-5.0); LYMPHOCYTES % (MANUAL) 18 % (16-48); MONOCYTES % (MANUAL) 4 % (0-11.0); NEUTROPHILS % (MANUAL) 75 (42-76)
[2022-07-08 16:00] VITALS: BP 119/81
--- NOTE | 2022-07-08 19:00 | NUR ---
MS RN CLOSING NOTE PATIENT IN BED, AWAKE AND A/O X4. ON OXYGEN AT 3 LPM, TOLERATING WELL. NO SOB NOTED. NOT IN DISTRESS, WITHOUT ANY COMPLAINTS OF PAIN OR DISCOMFORT AT THIS TIME. TELE MONITOR WAS DISCONTINUED BY MD. ALL SCHEDULED MEDICATIONS GIVEN ORDERED. PATIENT RECEIVED DILAUDID 4 MG PO TWICE OVER LAST 12 HOURS PRN SEVER PAIN TO STOMACH AND FOR GENERALIZED BONE PAIN FROM ARTHRITIS. PATIENT REFUSED TRAMADOL BECAUSE SHE SAID HER BODY REACTS BADLY TO TRAMADOL CAUSING SEVERE RASH OVER HER WHOLE BODY. TRAMADOL DISCONTINUED FROM MEDICATION LIST. SAFETY MEASURES IN PLACE. CALL LIGHT WITHIN REACH. BED ON LOWEST LOCKED POSITION, SIDE RAILS UP X2. WILL ENDORSE TO NEXT SHIFT FOR ITZ.
--- NOTE | 2022-07-08 19:30 | NUR ---
MS RN OPENING NOTES - RECEIVED PATIENT AWAKE, HOB IN HIGH BURCIAGA'S. A/O X4 WITH PERIODS OF CONFUSION, VERY ANXIOUS AND TREMORS NOTED. BREATHING EVEN AND NON-LABORED, ON O2 AT 3LPM VIA NASAL CANULA. VERBALIZED SHE HAS CHRONIC PAIN ON HER RIGHT HIP AND HAVE SEVERAL BROKEN BONES. SHE TAKES DILAUDID 4MG PRN EVERY 4 HOURS. HAS RIGHT UPPER ARM PICC LINE WITH NS RUNNING AT 80 ML/HR. NO S/S OF INFILTRATION NOTED. BILATERAL ARMS BRUISING NOTED. SAFETY PRECAUTIONS IN PLACE: BED LOCKED AND IN LOW POSITION, SIDE RAILS UP X2, CALL LIGHT WITHIN REACH. WILL CONTINUE PLAN OF CARE.
[2022-07-08 20:00] VITALS: BP 138/75
--- NOTE | 2022-07-08 21:40 | NUR ---
C/O RIGHT HIP PAIN 03/02. GAVE PRN DILAUDID 40MG, TOLERATED WELL. 4TH DOSE WITHIN 24 HOURS 07/08/22 0600
[2022-07-08] MEDS: ENOXAPARIN SODIUM 40 MG/0.4 ML DISP.SYRIN SQ SCH (21:52)
[2022-07-08] MEDS: MIRTAZAPINE 15 MG TABLET PO SCH (21:53)
[2022-07-08] MEDS: *INSULIN REGULAR(HUMULIN R)HUM 100 UNIT/ML VIAL SQ PRN (22:01)
--- NOTE | 2022-07-08 22:04 | NUR ---
REFUSED REGULAR INSULIN, EXPLAINED RISKS AND BENEFITS, STILL REFUSED.
[2022-07-09] MEDS: IPRATROPIUM NEB FS 0.5 MG/2.5 ML AMPUL.NEB NEB SCH ×4 (01:25→20:14)
[2022-07-09] MEDS: ALBUTEROL FS 2.5 MG/3 ML VIAL.NEB NEB SCH ×4 (01:25→20:14)
[2022-07-09] MEDS: IV NS 0.9% 1,000 ML IV PRN (01:41)
[2022-07-09] MEDS ORDERED: VANCOMYCIN 0.75 GM in IV D5W 250 ML IV SCH (04:00)
--- NOTE | 2022-07-09 05:35 | NUR ---
REFUSED PERINEAL CARE, WANTS TO GO BACK TO SLEEP. DENIES DIARRHEA AT THIS TIME.
[2022-07-09] MEDS: PIPERACILLIN /TAZOBACTAM 3.375 G in IV D5W 100 ML IV SCH ×3 (05:41→20:06)
[2022-07-09] MEDS: BLOOD SUGAR DIAGNOSTIC 1 EACH STRIP VI SCH ×4 (06:37→21:54)
[2022-07-09] MEDS: INSULIN REGULAR, HUMAN 100 UNIT/ML 3 ML VIAL SQ PRN ×3 (06:38→17:37)
--- NOTE | 2022-07-09 06:51 | NUR ---
MS RN CLOSING NOTES - PATIENT SLEEPING, EASY TO AROUSE. NO ACUTE DISTRESS THROUGHOUT THE NIGHT. TOLERATING O2 AT 3LPM VIA NASAL CANULA, SATURATING AT 94%. NO C/O PAIN OR DISCOMFORT AT THIS TIME. AFEBRILE. RIGHT UPPER ARM PICC LINE INTACT, PATENT AND FLUSHING. ALL DUE MEDS GIVEN AND NEEDS ATTENDED. NO INSULIN COVERAGE GIVEN. SAFETY PRECAUTIONS MAINTAINED. WILL ENDORSE TO NEXT SHIFT FOR ITZ.
[2022-07-09 07:00] VITALS: BP 143/94
--- NOTE | 2022-07-09 07:25 | NUR ---
MS RN OPENING NOTES RECEIVED PT IN BED, AWAKE. A/O X 4, ABLE TO MAKE NEEDS KNOWN. WITH O2 VIA NC AT 3LPM, WITH WHEEZES. NO SIGN OF ACUTE RESPIRATORY DISTRESS NOTED AT THIS TIME. ENCOURAGED DEEP BREATHING EXERCISES. PICC LINE IN LEILA WITH ONGOING NS AT 80ML/HR INFUSING WELL, C/D/I. SAFETY MEASURES IN PLACE: BED LOCKED AND IN LOWEST POSITION, CALL LIGHT AND TRAY TABLE WITHIN EASY REACH, SIDE RAILS X 2. WILL CONTINUE TO MONITOR.
[2022-07-09] MEDS: PANTOPRAZOLE 40 MG TABLET.DR PO SCH (07:54)
[2022-07-09] MEDS: HYDROMORPHONE HCL 2 MG TABLET PO PRN ×3 (07:55→20:06)
--- NOTE | 2022-07-09 08:00 | NUR ---
RN NOTES PT C/O BACK PAIN, DILAUDID 4MG TAB PRN GIVEN AT 0755, WILL CONTINUE TO MONITOR.
[2022-07-09] MEDS: clonazePAM 0.5 MG TABLET PO SCH ×3 (08:10→16:40)
[2022-07-09] MEDS: GLUCERNA SHAKE 237 ML CAN PO SCH ×2 (08:30→16:44)
[2022-07-09] MEDS: PILOCARPINE HCL 5 MG TABLET PO SCH ×3 (08:49→16:46)
[2022-07-09] MEDS: HYDROCORTISONE SOD SUCCINATE 100 MG/2 ML VIAL IV SCH ×2 (08:49→14:16)
[2022-07-09] MEDS: CHOLECALCIFEROL 1,000 UNIT TABLET (VIT D3) PO SCH (08:49)
[2022-07-09] MEDS: GABAPENTIN 400 MG CAPSULE PO SCH ×3 (08:50→16:40)
[2022-07-09] MEDS: MULTIVIT W/MINERALS 1 TAB TABLET PO SCH (08:50)
[2022-07-09] MEDS: CARVEDILOL 3.125 MG TABLET PO SCH ×3 (08:50→17:00)
[2022-07-09] MEDS: LORATADINE 10 MG TABLET PO SCH (08:50)
[2022-07-09] MEDS: CALCIUM CARBONATE (1250) 500 MG TABLET PO SCH ×3 (08:51→17:00)
[2022-07-09] MEDS: METHOCARBAMOL (750MG) 750 MG TABLET PO SCH ×3 (08:51→16:41)
[2022-07-09] MEDS: POLYVINYL ALCOHOL 15 ML BOTTLE EACHEYE SCH ×3 (09:24→16:46)
[2022-07-09] MEDS: MUPIROCIN OINT 2% 22 GM TUBE NS SCH ×2 (09:24→16:46)
[2022-07-09 12:00] VITALS: BP_SYST 144; BP_SYST 159; BP_DIAS 112; BP_DIAS 64
[2022-07-09 12:12] LABS: PHOSPHORUS 1.6 mg/dL (2.5-4.9)
--- NOTE | 2022-07-09 12:17 | NUR ---
RN NOTES PT SWABBED FOR RAPID COVID-19. SPECIMEN BROUGHT TO LAB.
[2022-07-09 12:19] LABS: EOSINOPHILS % (AUTO) 0.6 % (0.0-6.0); HEMATOCRIT 33 % (33-45); HEMOGLOBIN 10.8 g/dL (11.5-14.8); LYMPHOCYTES # (AUTO) 0.7 K/uL (0.8-4.8); LYMPHOCYTES % (AUTO) 11.1 % (20.0-44.0); MEAN CORPUSCULAR HGB CONC 33 g/dl (31.0-36.0); MEAN CORPUSCULAR VOLUME 95 fL (82-100); MONOCYTES # (AUTO) 0.8 K/uL (0.1-1.30); MONOCYTES % (AUTO) 11.5 % (2.0-12.0); NEUTROPHILS % (AUTO) 76.8 % (43.0-81.0); PLATELET COUNT (AUTO) 85 K/uL (150-450); RED BLOOD CELL COUNT(AUTO) 3.44 MIL/uL (4.0-5.2); WHITE BLOOD COUNT (AUTO) 6.5 K/uL (4.3-11.0)
[2022-07-09 12:24] LABS: POTASSIUM 2.8 mmol/L (3.5-5.1)
[2022-07-09] MEDS: POTASSIUM CHLORIDE 20 MEQ TAB.PRT.SR PO SCH ×2 (13:00→13:08)
[2022-07-09] MEDS: POTASSIUM CL. PREMIX PERIPHER. 50 ML IV SCH ×2 (14:14→15:30)
[2022-07-09] MEDS ORDERED: K PHOS NEUTRAL 250 MG TABLET PO ONE (15:30)
--- NOTE | 2022-07-09 15:37 | NUR ---
RN NOTES PT REFUSED 60MEQ K DUR AND IV POTASSIUM. OPENED 1 BAG OF POTASSIUM CHLORIDE BUT PT REFUSED. PT VERBALIZED THAT SHE HAS BAD EXPERIENCE WITH IV POTASSIUM, DESPITE EXPLAINING BENEFITS AND RISKS INCLUDING . PT VERBALIZED UNDERSTANDING. DR. RODRIGUEZ INFORMED. PT GIVEN BANANAS AND APPLE JUICE.
[2022-07-09 16:00] VITALS: BP 147/90
[2022-07-09] MEDS ORDERED: VANCOMYCIN 1 GM in IV D5W 250 ML IV SCH (16:00)
--- NOTE | 2022-07-09 17:10 | NUR ---
RN NOTES OSCAL 500MG TAB AND COREG 3.125MG TAB SCHEDULED AT 1700 WAS REFUSED BY PT, DESPITE WITH EXPLANATION AND EDUCATION OF BENEFITS. MEDICATIONS ALREADY OPENED. DISCARDED MEDICATIONS, WITNESSED BY KATHERINE SOMMER.
[2022-07-09 17:59] LABS: LYMPHOCYTES % (MANUAL) 11 % (16-48); MONOCYTES % (MANUAL) 12 % (0-11.0); NEUTROPHILS % (MANUAL) 77 (42-76)
--- NOTE | 2022-07-09 18:45 | NUR ---
MS RN CLOSING NOTES PT RESTING IN BED. A/O X 4, ABLE TO MAKE NEEDS KNOWN. O2 VIA NC AT 3LPM, TOLERATING WELL, NO SIGN OF ACUTE RESPIRATORY DISTRESS. ENCOURAGED DEEP BREATHING EXERCISES. PICC LINE IN LEILA WITH ONGOING NS AT 80ML/HR INFUSING WELL, C/D/I. NEEDS ATTENDED. SAFETY MEASURES IN PLACE: BED LOCKED AND IN LOWEST POSITION, CALL LIGHT AND TRAY TABLE WITHIN EASY REACH, SIDE RAILS X 2. WILL ENDORSE ITZ TO DATASTAGE CONSULTANT.
--- NOTE | 2022-07-09 19:30 | NUR ---
MS RN OPENING NOTE RECEIVED PT AWAKE IN BED. A/O X4 AND ABLE TO MAKE NEEDS KNOWN. PT ON O2 @ 3 LPM VIA NC, TOLERATING WELL. IV ACCESS LEILA PICC LINE, INTACT AND PATENT, RUNNING NS @ 80 ML/HR. SAFETY PRECAUTIONS IN PLACE. BED IN LOWEST LOCKED POSITION, HOB ELEVATED, SIDE RAILS UP X3, AND CALL LIGHT AND TABLE WITHIN REACH. ALL NEEDS MET AT THIS TIME.
--- NOTE | 2022-07-09 20:06 | NUR ---
RN NOTE PT COMPLAINED OF PAIN 9/10 OF BACK. ADMINISTERED DILAUDID 4 MG FOR SEVERE PAIN ORDERED. MADE COMFORTABLE IN BED. ALL NEEDS MET AT THIS TIME.
[2022-07-09 20:19] VITALS: BP 122/57
[2022-07-09] MEDS: MIRTAZAPINE 15 MG TABLET PO SCH (21:54)
--- NOTE | 2022-07-10 01:10 | NUR ---
RN NOTE PT COMPLAINED OF INSOMNIA. ADMINISTERED AMBIEN 5 MG FOR INSOMNIA ORDERED. MADE COMFORTABLE IN BED. ALL NEEDS MET AT THIS TIME.
[2022-07-10] MEDS: ALBUTEROL FS 2.5 MG/3 ML VIAL.NEB NEB SCH ×4 (01:30→20:15)
[2022-07-10] MEDS: IPRATROPIUM NEB FS 0.5 MG/2.5 ML AMPUL.NEB NEB SCH ×4 (01:30→20:15)
[2022-07-10 05:55] LABS: BASOPHILS % (AUTO) 0.1 % (0.0-2.0); EOSINOPHILS % (AUTO) 1.9 % (0.0-6.0); HEMATOCRIT 32 % (33-45); HEMOGLOBIN 10.8 g/dL (11.5-14.8); LYMPHOCYTES # (AUTO) 1.7 K/uL (0.8-4.8); LYMPHOCYTES % (AUTO) 31.4 % (20.0-44.0); MEAN CORPUSCULAR HGB CONC 33 g/dl (31.0-36.0); MEAN CORPUSCULAR VOLUME 94 fL (82-100); MONOCYTES # (AUTO) 0.6 K/uL (0.1-1.30); MONOCYTES % (AUTO) 10.5 % (2.0-12.0); NEUTROPHILS % (AUTO) 56.1 % (43.0-81.0); PLATELET COUNT (AUTO) 92 K/uL (150-450); RED BLOOD CELL COUNT(AUTO) 3.42 MIL/uL (4.0-5.2); WHITE BLOOD COUNT (AUTO) 5.4 K/uL (4.3-11.0)
[2022-07-10 06:13] LABS: CALCIUM, SERUM 8.2 mg/dL (8.5-10.1); CREATININE 0.9 mg/dL (0.6-1.3); MAGNESIUM 2.1 mg/dL (1.8-2.4); PHOSPHORUS 3.2 mg/dL (2.5-4.9)
[2022-07-10 06:24] LABS: POTASSIUM 2.7 mmol/L (3.5-5.1)
[2022-07-10] MEDS: BLOOD SUGAR DIAGNOSTIC 1 EACH STRIP VI SCH ×4 (06:32→23:05)
--- NOTE | 2022-07-10 06:43 | NUR ---
MS RN CLOSING NOTE PT RESTING IN BED, VERBALLY RESPONSIVE. A/O X4 AND ABLE TO MAKE NEEDS KNOWN. PT ON O2 @ 3 LPM VIA NC, TOLERATING WELL. IV ACCESS LEILA PICC LINE, INTACT AND PATENT, RUNNING NS @ 80 ML/HR. ALL DUE MEDS GIVEN ORDERED. NO COMPLAINTS OF PAIN OR DISCOMFORT AT THIS TIME. SAFETY PRECAUTIONS IN PLACE AT ALL TIMES. BED IN LOWEST LOCKED POSITION, HOB ELEVATED, SIDE RAILS UP X3, AND CALL LIGHT AND TABLE WITHIN REACH. ALL NEEDS MET AT THIS TIME AND WILL ENDORSE TO ONCOMING NURSE FOR ITZ.
[2022-07-10 07:00] VITALS: BP_SYST 154; BP_SYST 159; BP_DIAS 48; BP_DIAS 78
--- NOTE | 2022-07-10 07:03 | NUR ---
MS RN OPENING NOTES RECEIVED PATIENT AWAKE IN BED, A/Ox4 ABLE TO MAKE NEEDS KNOWN. ON 3L OF O2 VIA NC, NO S/S OF RESPIRATORY DISTRESS. PATIENT COMPLAINED OF PAIN REQUESTING PRN DILAUDID. WILL ADMINISTER. PATIENT HAS IV ACCESS LEILA PICC RUNNING NS @80 ML/HR, INTACT AND PATENT. PATIENT INCONTINENT, USES DIAPER. ON BEDREST. SKIN ISSUES: SACRAL REDNESS AND BUE BRUISING. SAFETY MEASURES IN PLACE: BED LOCKED AND IN LOWEST POSITION, HOB ELEVATED, SIDE RAILS UPx2, CALL LIGHT WITHIN REACH. WILL CONTINUE TO MONITOR.
[2022-07-10] MEDS: PANTOPRAZOLE 40 MG TABLET.DR PO SCH (07:54)
[2022-07-10] MEDS: HYDROMORPHONE HCL 2 MG TABLET PO PRN ×3 (07:55→20:12)
[2022-07-10] MEDS: PILOCARPINE HCL 5 MG TABLET PO SCH ×3 (08:00→17:00)
[2022-07-10] MEDS: GLUCERNA SHAKE 237 ML CAN PO SCH ×2 (08:01→17:04)
[2022-07-10] MEDS: clonazePAM 0.5 MG TABLET PO SCH ×3 (09:08→16:49)
[2022-07-10] MEDS: LORATADINE 10 MG TABLET PO SCH (09:09)
[2022-07-10] MEDS: CARVEDILOL 3.125 MG TABLET PO SCH ×2 (09:09→16:50)
[2022-07-10] MEDS: GABAPENTIN 400 MG CAPSULE PO SCH ×3 (09:09→16:49)
[2022-07-10] MEDS: HYDROCORTISONE SOD SUCCINATE 100 MG/2 ML VIAL IV SCH (09:10)
[2022-07-10] MEDS: MULTIVIT W/MINERALS 1 TAB TABLET PO SCH (09:11)
[2022-07-10] MEDS: CALCIUM CARBONATE (1250) 500 MG TABLET PO SCH ×2 (09:11→17:00)
[2022-07-10] MEDS: METHOCARBAMOL (750MG) 750 MG TABLET PO SCH ×3 (09:11→17:00)
[2022-07-10] MEDS: POLYVINYL ALCOHOL 15 ML BOTTLE EACHEYE SCH ×3 (09:12→16:51)
[2022-07-10] MEDS: MUPIROCIN OINT 2% 22 GM TUBE NS SCH ×2 (09:12→16:51)
[2022-07-10] MEDS: CHOLECALCIFEROL 1,000 UNIT TABLET (VIT D3) PO SCH (09:12)
[2022-07-10 11:19] LABS: BAND % (MANUAL) 1 % (0.0-5.0); EOSINOPHILS % (MANUAL) 1 % (0-4); LYMPHOCYTES % (MANUAL) 30 % (16-48); MONOCYTES % (MANUAL) 12 % (0-11.0); NEUTROPHILS % (MANUAL) 56 (42-76)
[2022-07-10] MEDS ORDERED: Potassium Chloride 20 MEQ in IV NS 0.9% 1,000 ML IV ONE (12:00)
[2022-07-10] MEDS: INSULIN REGULAR, HUMAN 100 UNIT/ML 3 ML VIAL SQ PRN ×2 (12:32→16:56)
--- NOTE | 2022-07-10 14:48 | NUR ---
RN NOTES PATIENT COMPLAINED OF PAIN, REQUESTED PRN DILAUDID, WILL CONTINUE MONITOR.
[2022-07-10 16:00] VITALS: BP 119/73
--- NOTE | 2022-07-10 18:44 | NUR ---
MS RN CLOSING NOTES PATIENT AWAKE IN BED, A/Ox4 ABLE TO MAKE NEEDS KNOWN. STABLE ON 3L OF O2 VIA NC, NO S/S OF RESPIRATORY DISTRESS. PATIENT COMPLAINED OF PAIN REQUESTING PRN DILAUDID. WILL ADMINISTER. PATIENT HAS IV ACCESS LEILA PICC RUNNING 20 MEQ POTASSIUM CHLORIDE IN NS @80 ML/HR, INTACT AND PATENT. PATIENT INCONTINENT, USES DIAPER. ON BEDREST. SKIN ISSUES: SACRAL REDNESS AND BUE BRUISING. SAFETY MEASURES MAINTAINED: BED LOCKED AND IN LOWEST POSITION, HOB ELEVATED, SIDE RAILS UPx2, CALL LIGHT WITHIN REACH. WILL ENDORSE TO NEXT SHIFT ANY ITZ.
--- NOTE | 2022-07-10 19:00 | NUR ---
RN OPENING NOTES PT IS AWAKE, A/O X 4 ABLE TO MAKE NEEDS KNOWN. PT ON NASAL CANULA ON 2L O2, TOLERATING WELL, BREATHING EVEN AND UNLABORED AT THIS TIME. PT PICC LINE ON RIGHT UPPER ARM, PATENT, INTACT AND FLUSHES WELL RUNNING POTASSIUM CHLORIDE 20 Meq in IV 0.9% Ns 1000 ml @ 80MLS/HR W/ NO S/S OF INFILTRATION ON SITE NOTED. SKIN IS WARM AND DRY. SAFETY MEASURES IN PLACE. BED IN ITS LOWEST & LOCKED POSITION, SIDE RAILS UP X 2, BEDSIDE TABLE & CALL LIGHT IS EASY REACH. WILL CONTINUE TO MONITOR PT ACCORDINGLY.
[2022-07-10 20:00] VITALS: BP 110/53
[2022-07-10] MEDS: LORAZEPAM 0.5 MG TABLET PO PRN (21:35)
[2022-07-10] MEDS: MIRTAZAPINE 15 MG TABLET PO SCH (21:36)
[2022-07-11] VITALS: BP 110/60
[2022-07-11] MEDS: IPRATROPIUM NEB FS 0.5 MG/2.5 ML AMPUL.NEB NEB SCH ×4 (01:30→19:26)
[2022-07-11] MEDS: ALBUTEROL FS 2.5 MG/3 ML VIAL.NEB NEB SCH ×4 (01:30→19:26)
[2022-07-11 03:48] LABS: CREATININE 0.8 mg/dL (0.6-1.3); POTASSIUM 2.9 mmol/L (3.5-5.1)
[2022-07-11 04:00] VITALS: BP 144/52
[2022-07-11] MEDS: HYDROMORPHONE HCL 2 MG TABLET PO PRN ×4 (05:15→22:02)
--- NOTE | 2022-07-11 06:04 | NUR ---
RN CLOSING NOTES PT IS ASLEEP AND RESTING COMFORTBLE IN BED, A/O X 4. PT ON NASAL CANULA ON 2L O2, TOLERATING WELL, BREATHING EVEN AND UNLABORED AT THIS TIME. NO S/S OF RESPIRATORY DISTRESS NOTED. PT PICC LINE ON RIGHT UPPER ARM, PATENT, INTACT AND FLUSHES WELL RUNNING POTASSIUM CHLORIDE 20 Meq in IV 0.9% Ns 1000 ml @ 80MLS/HR W/ NO S/S OF INFILTRATION ON SITE NOTED. SKIN IS WARM AND DRY. MEDICATIONS ADMINISTERED ACCORDINGLY PER MD'S ORDER. SAFETY MEASURES IMAINTAINED . BED IN ITS LOWEST & LOCKED POSITION, SIDE RAILS UP X 2, BEDSIDE TABLE & CALL LIGHT IS EASY REACH. WILL ENDORSE TO THE NEXT SHIFT FOR CONTINUITY OF CARE.
[2022-07-11] MEDS: BLOOD SUGAR DIAGNOSTIC 1 EACH STRIP VI SCH ×4 (06:34→21:06)
[2022-07-11] MEDS: PANTOPRAZOLE 40 MG TABLET.DR PO SCH (06:34)
--- NOTE | 2022-07-11 07:52 | NUR ---
MS RN OPENING NOTE Patient in bed, asleep. A/O x 4. On O2 at 3LPM, breathing evenly and unlabored. No SOB or s/s or distress noted. IV access on LEILA PICC line infusing NS at 80 ml/hr. Purewick in place drainig to a light yellow urine. Safety precautions in place: bed in low, locked position; siderails up x 2; call light within reach. Will continue to monitor.
[2022-07-11 08:00] VITALS: BP 155/89
[2022-07-11] MEDS: clonazePAM 0.5 MG TABLET PO SCH ×3 (08:52→16:40)
[2022-07-11] MEDS: CHOLECALCIFEROL 1,000 UNIT TABLET (VIT D3) PO SCH (08:52)
[2022-07-11] MEDS: LORATADINE 10 MG TABLET PO SCH (08:52)
[2022-07-11] MEDS: GABAPENTIN 400 MG CAPSULE PO SCH ×3 (08:52→16:40)
[2022-07-11] MEDS: METHOCARBAMOL (750MG) 750 MG TABLET PO SCH ×3 (08:52→16:40)
[2022-07-11] MEDS: CALCIUM CARBONATE (1250) 500 MG TABLET PO SCH ×2 (08:52→16:40)
[2022-07-11] MEDS: HYDROCORTISONE SOD SUCCINATE 100 MG/2 ML VIAL IV SCH (08:52)
[2022-07-11] MEDS: PILOCARPINE HCL 5 MG TABLET PO SCH ×3 (08:52→16:40)
[2022-07-11] MEDS: POLYVINYL ALCOHOL 15 ML BOTTLE EACHEYE SCH ×3 (08:52→16:41)
[2022-07-11] MEDS: MULTIVIT W/MINERALS 1 TAB TABLET PO SCH (08:52)
[2022-07-11] MEDS: CARVEDILOL 3.125 MG TABLET PO SCH ×2 (08:52→16:42)
[2022-07-11] MEDS: GLUCERNA SHAKE 237 ML CAN PO SCH ×2 (08:53→16:41)
[2022-07-11] MEDS: MUPIROCIN OINT 2% 22 GM TUBE NS SCH ×2 (09:02→16:41)
--- NOTE | 2022-07-11 09:19 | NUR ---
RN NOTE Patient complained of back and hip pain, PRN Dilaudid 4 mg PO given. Will continue to monitor.
[2022-07-11] MEDS ORDERED: predniSONE 20 MG TABLET PO SCH (11:00)
[2022-07-11] MEDS: POTASSIUM CHLORIDE 20 MEQ TAB.PRT.SR PO SCH ×2 (11:00→11:24)
[2022-07-11] MEDS: INSULIN REGULAR, HUMAN 100 UNIT/ML 3 ML VIAL SQ PRN ×2 (11:45→17:11)
[2022-07-11] MEDS: POTASSIUM CHLORIDE 20 MEQ POWDER PACKET PO SCH ×3 (12:35→15:00)
--- NOTE | 2022-07-11 13:26 | NUR ---
RN NOTE Patient complained of back and hip pain, PRN Dilaudid 4 mg PO given. Will continue to monitor.
[2022-07-11 16:00] VITALS: BP 108/68
--- NOTE | 2022-07-11 16:48 | NUR ---
RN NOTE Patient's potassium is 2.9 but patient is refusing potassium supplements. Patient refusing PO and IV potassium. Discussed the risks of not taking potassium supplement, patient still refused. Dr. Olivo also spoke to patient about getting potassium replacements but patient still refused.
--- NOTE | 2022-07-11 18:48 | NUR ---
RN NOTE PUREWICK CHANGED. rEDNESS ON PERINEAL AND INNER THIGHS NOTED. PHOTO TAKEN AND PLACED IN CHART. wOUND CARE CONSULT REQUESTED.
--- NOTE | 2022-07-11 18:58 | NUR ---
MS RN CLOSING NOTE Patient in bed, resting. A/O x 4, able to make needs known. On O2 at 3LPM, breathing evenly and unlabored. No SOB or s/s or distress noted. IV access on LEILA PICC line infusing NS at 80 ml/hr. Purewick in place draining to a yellow colored urine with an output of 700 cc. All needs attended to. Due meds given. Safety precautions in place: bed in low, locked position; siderails up x 2; call light within reach. Will endorse to overnight cashier nurse for ITZ.
--- NOTE | 2022-07-11 19:29 | NUR ---
RT NOTE PT AWAKE AND ALERT, FOUND ON 3LPM NC SPO2 92-93% HR 75-79 CURRENTLY. PT REFUSED BREATHING TX AT THE MOMENT. NO SOB NOTED. NO INCREASED WOB. NO S/S OF RESPIRATORY DISTRESS NOTED. MICROBIOLOGICAL LAB TECHNICIAN NOTIFIED. PT ALSO STATED TO: "NOT WAKE HER UP FOR NEXT TREATMENT, SHE WANTS TO REST."
--- NOTE | 2022-07-11 19:30 | NUR ---
MS RN OPENING NOTE RECEIVED PATIENT IN BED, WITH HOB ELEVATED, AWAKE, ALERT AND ORIENTED X4. AFEBRILE AND NOT IN ANY FORM OF ACUTE DISTRESS. ON O2 INHALATION VIA NASAL CANNULA AT 3LPM. WITH IV ACCESS ON LEILA PICC LINE RUNNING WITH NS AT 80ML/HR. SAFETY MEASURES IN PLACE. KEPT BED IN LOCKED AND IN LOW POSITION. SIDE RAILS UP X2. ADVISED TO USE THE CALL LIGHT WHEN IN NEED OF ASSISTANCE.
[2022-07-11 20:00] VITALS: BP 135/78
[2022-07-11] MEDS: MIRTAZAPINE 15 MG TABLET PO SCH (21:01)
[2022-07-11] MEDS: IV NS 0.9% 1,000 ML IV PRN (23:08)
[2022-07-12] MEDS: IPRATROPIUM NEB FS 0.5 MG/2.5 ML AMPUL.NEB NEB SCH ×4 (00:44→19:49)
[2022-07-12] MEDS: ALBUTEROL FS 2.5 MG/3 ML VIAL.NEB NEB SCH ×4 (00:45→19:49)
--- NOTE | 2022-07-12 06:29 | NUR ---
MS RN CLOSING NOTE PATIENT IN BED, WITH HOB ELEVATED, ASLEEP BUT EASY TO AROUSE AND RESPONSIVE. AFEBRILE AND NOT IN ANY FORM OF ACUTE DISTRESS. ON O2 INHALATION VIA NASAL CANNULA AT 3LPM. WITH IV ACCESS ON LEILA PICC LINE RUNNING WITH NS AT 80ML/HR. MONITORED FOR ANY S/SX. OF HYPO/HYPERGLYCEMIA. MEDICATED ORDERED. SAFETY MEASURES IN PLACE. KEPT BED IN LOCKED AND IN LOW POSITION. SIDE RAILS UP X2. ADVISED TO USE THE CALL LIGHT WHEN IN NEED OF ASSISTANCE. ALL NURSING NEEDS ATTENDED. ENDORSED TO INCOMING SHIFT FOR CONTINUITY OF CARE.
[2022-07-12] MEDS: BLOOD SUGAR DIAGNOSTIC 1 EACH STRIP VI SCH ×4 (06:38→21:19)
[2022-07-12] MEDS: HYDROMORPHONE HCL 2 MG TABLET PO PRN ×4 (07:21→21:27)
[2022-07-12 08:00] VITALS: BP 141/60
--- NOTE | 2022-07-12 08:10 | NUR ---
RN OPENING NOTE RECEIVED PATIENT IN BED, AO X 4. ABLE TO RESPONDS ALL STIMULI. RESPIRATORY EVEN AND UNLABORED ON OXYGEN AT 3Ls VIA NC. IN NO ACUTE RESPIRATORY DISTRESS OBSERVED. SKIN IS WARM TO TOUCH, KEEP CLEAN/DRY. KEPT ELEVATED HOB FOR ASPIRATION PRECAUTION/ENSURE AIRWAY, ALSO LOWEST BED POSITIONED. BED ALARM IS ON AT ALL THE TIME FOR SAFETY. CALL LIGHT WITHIN REACH, WILL CONTINUE TO MONITOR.
--- NOTE | 2022-07-12 08:12 | NUR ---
RN OPENING NOTE RECEIVED PATIENT IN BED, AO X 4. ABLE TO RESPONDS ALL STIMULI. RESPIRATORY EVEN AND UNLABORED IN ROOM AIR. IN NO ACUTE RESPIRATORY DISTRESS OBSERVED. SKIN IS WARM TO TOUCH, KEEP CLEAN/DRY. KEPT ELEVATED HOB FOR ASPIRATION PRECAUTION/ENSURE AIRWAY, ALSO LOWEST BED POSITIONED. BED ALARM IS ON AT ALL THE TIME FOR SAFETY. CALL LIGHT WITHIN REACH, WILL CONTINUE TO MONITOR.
[2022-07-12] MEDS: clonazePAM 0.5 MG TABLET PO SCH ×3 (09:05→17:14)
[2022-07-12] MEDS: predniSONE 20 MG TABLET PO SCH (09:08)
[2022-07-12] MEDS: CARVEDILOL 3.125 MG TABLET PO SCH ×2 (09:09→17:15)
[2022-07-12] MEDS: LORATADINE 10 MG TABLET PO SCH (09:09)
[2022-07-12] MEDS: GLUCERNA SHAKE 237 ML CAN PO SCH ×2 (09:10→17:23)
[2022-07-12] MEDS: PANTOPRAZOLE 40 MG TABLET.DR PO SCH (09:10)
[2022-07-12] MEDS: MUPIROCIN OINT 2% 22 GM TUBE NS SCH ×2 (09:14→17:13)
[2022-07-12] MEDS: POLYVINYL ALCOHOL 15 ML BOTTLE EACHEYE SCH ×3 (09:14→17:13)
[2022-07-12 10:05] LABS: BASOPHILS % (AUTO) 0.2 % (0.0-2.0); EOSINOPHILS % (AUTO) 3.9 % (0.0-6.0); HEMATOCRIT 33 % (33-45); HEMOGLOBIN 10.9 g/dL (11.5-14.8); LYMPHOCYTES # (AUTO) 2.3 K/uL (0.8-4.8); LYMPHOCYTES % (AUTO) 27.5 % (20.0-44.0); MEAN CORPUSCULAR HGB CONC 33 g/dl (31.0-36.0); MEAN CORPUSCULAR VOLUME 95 fL (82-100); MONOCYTES # (AUTO) 0.8 K/uL (0.1-1.30); MONOCYTES % (AUTO) 9.5 % (2.0-12.0); NEUTROPHILS # (AUTO) 4.9 K/uL (1.8-8.9); NEUTROPHILS % (AUTO) 58.9 % (43.0-81.0); PLATELET COUNT (AUTO) 141 K/uL (150-450); RED BLOOD CELL COUNT(AUTO) 3.47 MIL/uL (4.0-5.2); WHITE BLOOD COUNT (AUTO) 8.4 K/uL (4.3-11.0)
[2022-07-12] MEDS: CHOLECALCIFEROL 1,000 UNIT TABLET (VIT D3) PO SCH (10:08)
[2022-07-12] MEDS: CALCIUM CARBONATE (1250) 500 MG TABLET PO SCH ×2 (10:08→17:15)
[2022-07-12] MEDS: METHOCARBAMOL (750MG) 750 MG TABLET PO SCH ×3 (10:08→17:14)
[2022-07-12] MEDS: MULTIVIT W/MINERALS 1 TAB TABLET PO SCH (10:08)
[2022-07-12] MEDS: GABAPENTIN 400 MG CAPSULE PO SCH ×3 (10:09→17:15)
[2022-07-12] MEDS: PILOCARPINE HCL 5 MG TABLET PO SCH ×3 (10:09→17:15)
[2022-07-12 10:15] LABS: CALCIUM, SERUM 7.7 mg/dL (8.5-10.1); CREATININE 0.7 mg/dL (0.6-1.3)
[2022-07-12 10:25] LABS: POTASSIUM 2.7 mmol/L (3.5-5.1)
--- NOTE | 2022-07-12 10:54 | NUR ---
PATIENT'S POTASSIUM LEVEL 2.7 TODAY, NEW ORDER POTASSIUM 40 MEQ IV WITH LIDOCAINE AND POTASSIUM 40 MEQ PO ONCE. NOTED AND CARRY OUT.
[2022-07-12] MEDS ORDERED: POTASSIUM CHLORIDE 20 MEQ POWDER PACKET PO ONE (11:00)
[2022-07-12] MEDS: IV NS 0.9% 1,000 ML IV PRN (11:18)
[2022-07-12] MEDS: POTASSIUM CHLORIDE 10 MEQ/50 ML PREMIXED IVPB FOR PERIPHERAL LINE IV SCH ×4 (11:18→15:11)
[2022-07-12] MEDS: INSULIN REGULAR, HUMAN 100 UNIT/ML 3 ML VIAL SQ PRN ×3 (12:24→21:29)
[2022-07-12 13:07] LABS: BAND % (MANUAL) 2 % (0.0-5.0); BASOPHILS % (MANUAL) 0 % (0.0-2.0); EOSINOPHILS % (MANUAL) 2 % (0-4); LYMPHOCYTES % (MANUAL) 25 % (16-48); MONOCYTES % (MANUAL) 11 % (0-11.0); NEUTROPHILS % (MANUAL) 60 (42-76)
[2022-07-12 16:00] VITALS: BP 146/71
[2022-07-12] MEDS: CLOTRIMAZOLE 1% 15 GM TUBE TP SCH (17:17)
--- NOTE | 2022-07-12 18:00 | NUR ---
RN CLOSING NOTE PATIENT RESTING IN BED. IN NO ACUTE DISTRESS OBSERVED. RESPIRATORY EVEN AND UNLABORED ON OXYGEN AT 3Ls. IN NO ACUTE RESPIRATORY DISTRESS OBSERVED. SKIN IS WARM TO TOUCH KEEP CLEAN/DRY. KEPT ELEVATED HOB FOR ENSURE AIRWAY/ASPIRATION PRECAUTION, AND LOWEST BED POSITION. BED ALARM IS ON AT ALL THE TIME FOR SAFETY. CALL LIGHT WITHIN REACH, WILL ENDORSE CARGO SERVICE AGENT.
--- NOTE | 2022-07-12 19:35 | NUR ---
MS RN OPENING NOTE RECEIVED PATIENT FROM AM NURSE, AWAKE IN BED, A/OX4, ABLE TO MAKE NEEDS KNOWN, ON 3LPM NASAL CANNULA, TOLERATING WELL AND WITH NO S/S OF DISTRESS NOTED; MAINTAINED HEAD OF BED ELEVATED; DENIES ANY PAIN AND DISCOMFORT AT THIS TIME. WITH LEILA PICC LINE RUNNING WITH NS AT 80ML/HR; WITH PUREWICK IN PLACE; ENCOURAGED VERBALIZATION OF NEEDS; SAFETY MEASURES IMPLEMENTED, KEPT BED IN LOCKED AND IN LOW POSITION, SIDE RAILS UP X 3, TABLE AND CALL LIGHT WITHIN REACH; WILL CONTINUE TO MONITOR THROUGHOUT SHIFT
[2022-07-12 20:00] VITALS: BP 130/62
[2022-07-12] MEDS: MIRTAZAPINE 15 MG TABLET PO SCH (21:27)
--- NOTE | 2022-07-12 21:30 | NUR ---
MS RN NOTE PATIENT COMPLAINED OF PAIN AND ASKED FOR PAIN MEDICATION. DILAUDID TAB PRN GIVEN ORDERED. PATIENT VERBALIZED DECREASE IN PAIN AND IS CURRENTLY SLEEPING
--- NOTE | 2022-07-12 22:05 | NUR ---
MS RN NOTE ACCUCHECK WAS DONE AND PT'S BLOOD SUGAR WAS 160. 2 UNITS OF INSULIN PER SLIDING SCALE WAS GIVEN. PATIENT TOLERATED WELL
[2022-07-13] MEDS: ALBUTEROL FS 2.5 MG/3 ML VIAL.NEB NEB SCH ×3 (01:30→13:30)
[2022-07-13] MEDS: IPRATROPIUM NEB FS 0.5 MG/2.5 ML AMPUL.NEB NEB SCH ×3 (01:30→13:30)
[2022-07-13] MEDS: IV NS 0.9% 1,000 ML IV PRN (04:31)
[2022-07-13] MEDS: BLOOD SUGAR DIAGNOSTIC 1 EACH STRIP VI SCH ×2 (06:34→11:58)
--- NOTE | 2022-07-13 06:46 | NUR ---
MS RN CLOSING NOTE PATIENT IN BED, A/OX4, ABLE TO MAKE NEEDS KNOWN, ON 3LPM NASAL CANNULA, TOLERATING WELL AND WITH NO S/S OF DISTRESS NOTED; MAINTAINED HEAD OF BED ELEVATED; DENIES ANY PAIN AND DISCOMFORT AT THIS TIME. WITH LEILA PICC LINE RUNNING WITH NS AT 80ML/HR INFUSING WELL; WITH PUREWICK IN PLACE DRAINING TO LIGHT YELLOW COLORED URINE AND WAS NEWLY CHANGED; ADMINISTERED MEDICATIONS PRESCRIBED; PATIENT'S NEEDS ATTENDED; MONITORED PATIENT ACCORDINGLY; SAFETY MEASURES IMPLEMENTED, KEPT BED IN LOCKED AND IN LOW POSITION, SIDE RAILS UP X 3, TABLE AND CALL LIGHT WITHIN REACH; WILL ENDORSE TO AM NURSE FOR ITZ.
[2022-07-13 07:10] LABS: CALCIUM, SERUM 8.4 mg/dL (8.5-10.1); CREATININE 0.7 mg/dL (0.6-1.3); MAGNESIUM 2.1 mg/dL (1.8-2.4); POTASSIUM 3.7 mmol/L (3.5-5.1)
--- NOTE | 2022-07-13 07:48 | NUR ---
MS RN OPENING NOTE Patient in bed, asleep. A/O x 4. On O2 at 3LPM, breathing evenly and unlabored. No SOB or s/s or distress noted. IV access on LEILA PICC line infusing NS at 80 ml/hr. Purewick in place draining to a yellow urine. Safety precautions in place: bed in low, locked position; siderails up x 2; call light within reach. Will continue to monitor.
[2022-07-13] MEDS: clonazePAM 0.5 MG TABLET PO SCH ×2 (08:25→12:51)
[2022-07-13] MEDS: METHOCARBAMOL (750MG) 750 MG TABLET PO SCH ×2 (08:25→12:51)
[2022-07-13] MEDS: GABAPENTIN 400 MG CAPSULE PO SCH ×2 (08:25→12:51)
[2022-07-13] MEDS: PANTOPRAZOLE 40 MG TABLET.DR PO SCH (08:25)
[2022-07-13] MEDS: CARVEDILOL 3.125 MG TABLET PO SCH (08:25)
[2022-07-13] MEDS: HYDROMORPHONE HCL 2 MG TABLET PO PRN ×2 (08:26→13:24)
[2022-07-13] MEDS: GLUCERNA SHAKE 237 ML CAN PO SCH (08:33)
[2022-07-13 08:59] VITALS: BP 170/92
[2022-07-13] MEDS: predniSONE 20 MG TABLET PO SCH (09:45)
[2022-07-13] MEDS: MULTIVIT W/MINERALS 1 TAB TABLET PO SCH (09:45)
[2022-07-13] MEDS: LORATADINE 10 MG TABLET PO SCH (09:45)
[2022-07-13] MEDS: PILOCARPINE HCL 5 MG TABLET PO SCH ×2 (09:45→12:50)
[2022-07-13] MEDS: CALCIUM CARBONATE (1250) 500 MG TABLET PO SCH (09:45)
[2022-07-13] MEDS: CHOLECALCIFEROL 1,000 UNIT TABLET (VIT D3) PO SCH (09:45)
[2022-07-13] MEDS: POLYVINYL ALCOHOL 15 ML BOTTLE EACHEYE SCH ×2 (09:57→13:52)
[2022-07-13] MEDS: MUPIROCIN OINT 2% 22 GM TUBE NS SCH (09:58)
[2022-07-13] MEDS: CLOTRIMAZOLE 1% 15 GM TUBE TP SCH (09:58)
--- NOTE | 2022-07-13 09:58 | NUR ---
WOUND CARE CONSULT: PT PRESENTS WITH RASH TO PERINEUM AND INNER THIGH/LOWER BUTTOCKS. PT USING PURE WICK SYSTEM AT THIS TIME. RECOMMENDATIONS MADE FOR SKIN PROTECTION. DISCUSSED WITH NURSING STAFF. PT DEMONSTRATES ABILITY TO ASSIST WITH TURNING AND REPOSITIONING IN BED. MD IN AGREEMENT WITH PLAN OF CARE.
--- NOTE | 2022-07-13 15:45 | NUR ---
DISCHARGE NOTE Received order for discharge. Patient is A/O x 4, able to make needs known. Stable on room air, no SOB or s/s of distress noted. Discharge instructions given both verbally and in written form, patient verbalized understanding. Belongings accounted for, belonging sheet signed. Photo of perineal and inner thigh redness taken yesterday, in chart. IV access removed, pressure dressing applied. Exitcare folder given to EMT. Patient left in stable condition via ambulance with 2 miniature train driver.
== END 2022-07-13 17:48 | disposition home health service (06) | DRG 871 ==
LOC: ER 17:54 → ICU 22:15 → TELE 07-06 18:57 → MED 07-08 12:40
PROVIDERS: ADMIT Student in an Organized Health Care Education/Training Program
DX: A41.9 Sepsis, unspecified organism (principal); J15.6 Pneumonia due to other Gram-negative bacteria; J96.01 Acute respiratory failure with hypoxia; R65.21 Severe sepsis with septic shock; R57.1 Hypovolemic shock; J44.0 Chronic obstructive pulmonary disease with (acute) lower respiratory infection; J90 Pleural effusion, not elsewhere classified; F11.20 Opioid dependence, uncomplicated; D68.59 Other primary thrombophilia; M48.55XA Collapsed vertebra, not elsewhere classified, thoracolumbar region, initial encounter for fracture; E27.40 Unspecified adrenocortical insufficiency; E44.0 Moderate protein-calorie malnutrition; J98.11 Atelectasis; N39.0 Urinary tract infection, site not specified; E11.9 Type 2 diabetes mellitus without complications; F32.A Depression, unspecified; M32.9 Systemic lupus erythematosus, unspecified; H81.09 Meniere's disease, unspecified ear; F41.0 Panic disorder [episodic paroxysmal anxiety]; G24.01 Drug induced subacute dyskinesia; K21.9 Gastro-esophageal reflux disease without esophagitis; M81.0 Age-related osteoporosis without current pathological fracture; G89.4 Chronic pain syndrome; Z85.3 Personal history of malignant neoplasm of breast; M06.9 Rheumatoid arthritis, unspecified; Z96.641 Presence of right artificial hip joint; Z88.5 Allergy status to narcotic agent; Z91.040 Latex allergy status; Z79.51 Long term (current) use of inhaled steroids; Z79.84 Long term (current) use of oral hypoglycemic drugs; Z79.899 Other long term (current) drug therapy; Y95 Nosocomial condition; D69.6 Thrombocytopenia, unspecified; Z74.01 Bed confinement status; M51.37 Other intervertebral disc degeneration, lumbosacral region; Z98.1 Arthrodesis status; M85.88 Other specified disorders of bone density and structure, other site; E87.6 Hypokalemia; Z20.822 Contact with and (suspected) exposure to COVID-19; Z87.01 Personal history of pneumonia (recurrent); Z96.659 Presence of unspecified artificial knee joint
CPT/HCPCS: 36415; 36600; 71045-TC; 80048-TC; 80076-TC; 80202-TC; 81001; 82803-TC; 82962-TC; 83605-TC; 83735-TC; 83880; 84100-TC; 84484-TC; 85025-TC; 85730-TC; 87040-TC; 87081-TC; 93307-TC; 93970-TC; 94799-TC; 97112-TC; 97116-TC; 97530-TC; A4223; A6253; C9803; G0378; J1650; J1720; J1815; J2543; J2920; J3370; J3480; J7030; J7050; J7060; P9047

== ENCOUNTER 2022-11-21 09:25 | Inpatient (IN) | payer MEDICARE, OTHER ==
[~2022-11-21] VITALS: Ht 160 cm; Wt 61.2 kg
[~2022-11-21 09:25] MED LIST changes: +ACET-868 PO; -CALC-15 PO; +CALC500T52 PO; +CHOL100043 PO; +GUAI100S11 PO; +HYDR-4303 PO; -HYDR4TAB4 PO; +HYDR4TAB57 PO; -HYPR15DR4 EACHEYE; +IPRA3AMP23 IH; +IPRA42SP; +LIDO1ADH71 TP; -LIDO30AD10 TP; +LOPE2CAP PO; +LORA-258 PO; +MECL-159 PO; +MELA5TAB PO; +METH750T3 PO; -MINE133E RC; +NA P133E RC; +PILO5TAB10 PO; -PILOCARPINE HCL 5 MG TABLET PO SCH; +POLY15DR40 EACHEYE; +TRAM100T34 PO; -TRAM50TA2 PO; +ZINC113O14 TP
--- NOTE | 2022-11-21 09:39 | NUR ---
TO ER BED 8,MONITORED,AWAITING MD MORRIS
--- NOTE | 2022-11-21 09:44 | NUR ---
IV ACCESS ESTABLISHED, 18G RIGHT AC. BLOOD DRAWN INCLUDING CULTURES AND SENT TO LAB
[2022-11-21] MEDS ORDERED: PIPERACILLIN /TAZOBACTAM 2.25 G in IV D5W 50 ML IV ONE (10:00)
[2022-11-21] MEDS ORDERED: BENZTROPINE MESYLATE (1 MG) 1 MG TABLET PO ONE (10:00)
[2022-11-21] MEDS ORDERED: VANCOMYCIN 1 GM in IV D5W 250 ML IV ONE (10:00)
[2022-11-21] MEDS ORDERED: ACETAMINOPHEN ES 500 MG TABLET PO ONE (10:00)
[2022-11-21] MEDS ORDERED: ACETAMINOPHEN ES 500 MG TABLET ONE (10:02)
[2022-11-21] MEDS ORDERED: BLOO-668 IN (10:02)
[2022-11-21] MEDS ORDERED: VANCOMYCIN 1 GM /D5W 250 ML PB IV ONE (10:02)
[2022-11-21] MEDS ORDERED: BENZTROPINE MESYLATE (1 MG) 1 MG TABLET ONE (10:02)
[2022-11-21] MEDS ORDERED: INSU100V30 IJ (10:02)
[2022-11-21] MEDS ORDERED: PIPERACI/TAZO 3.375GM/D5W 50ML PB IV ONE (10:02)
--- NOTE | 2022-11-21 10:29 | NUR ---
PT TO CT .
[2022-11-21 10:43] LABS: BASOPHILS % (AUTO) 0.4 % (0.0-2.0); HEMATOCRIT 40 % (33-45); HEMOGLOBIN 13.6 g/dL (11.5-14.8); LYMPHOCYTES # (AUTO) 1.2 K/uL (0.8-4.8); MEAN CORPUSCULAR HGB CONC 34 g/dl (31.0-36.0); MEAN CORPUSCULAR VOLUME 93 fL (82-100); MONOCYTES # (AUTO) 0.9 K/uL (0.1-1.30); MONOCYTES % (AUTO) 15.7 % (2.0-12.0); NEUTROPHILS # (AUTO) 3.7 K/uL (1.8-8.9); NEUTROPHILS % (AUTO) 63.9 % (43.0-81.0); PLATELET COUNT (AUTO) 158 K/uL (150-450); RED BLOOD CELL COUNT(AUTO) 4.27 MIL/uL (4.0-5.2); WHITE BLOOD COUNT (AUTO) 5.8 K/uL (4.3-11.0)
[2022-11-21 10:48] LABS: CALCIUM, SERUM 9.4 mg/dL (8.5-10.1); CARBON DIOXIDE 32 mmol/L (21-32); CHLORIDE 100 mmol/L (98-107); CREATININE 0.9 mg/dL (0.6-1.3); GLUCOSE 122 mg/dL (74-106); POTASSIUM 3.8 mmol/L (3.5-5.1); SODIUM SERUM 138 mmol/L (136-145); UREA NITROGEN, BLOOD 11 mg/dL (7-18)
[2022-11-21] MEDS ORDERED: IV NS 0.9% 1,000 ML IV ONE ×2 (11:00→14:00)
[2022-11-21 11:01] LABS: ALANINE AMINOTRANSFERASE 17 U/L (12-78); ALBUMIN 3.6 g/dL (3.4-5.0); ALKALINE PHOSPHATASE 68 U/L (46-116); ASPARTATE AMINOTRANSFERASE 16 U/L (15-37); BILIRUBIN,DIRECT 0.1 mg/dL (0.0-0.2); BILIRUBIN,TOTAL 0.4 mg/dL (0.2-1.0); TOTAL PROTEIN, SERUM 7.5 g/dL (6.4-8.2)
[2022-11-21 11:05] LABS: BILIRUBIN,URINE NEGATIVE (NEGATIVE); COLOR,URINE YELLOW (YELLOW); LEUKOCYTE ESTERASE ,URINE 1+ (NEGATIVE); NITRITE, URINE NEGATIVE (NEGATIVE); PH,URINE 8.5 (5.0-8.0); PROTEIN,URINE 1+ mg/dl (NEGATIVE); UGLUCOSE NEGATIVE (NEGATIVE); UROBILINOGEN,URINE 0.2 EU/dL (0.2)
[2022-11-21 11:06] LABS: BACTERIA,URINE Few /HPF (None Seen); RBC,URINE 0-2 /HPF (0-2); SQUAMOUS EPITHELIAL CELL,UR Rare /HPF (None Seen)
[2022-11-21] MEDS ORDERED: ONDANSETRON HCL/PF 4 MG/2 ML VIAL IVP PRN (12:00)
[2022-11-21] MEDS ORDERED: ACETAMINOPHEN 650 MG/SUPP.RECT RC PRN (12:00)
[2022-11-21] MEDS ORDERED: Medication Not On Formulary EA (Ipratropium/Albuterol Sulfate (Duoneb 2.5-0.5 Mg/3 Ml So IH PRN (12:00)
[2022-11-21] MEDS ORDERED: MAGNESIUM HYDROXIDE 30 ML UDC PO PRN (12:00)
[2022-11-21] MEDS ORDERED: BISACODYL SUPP (10 MG) 10 MG/SUPP.RECT SUPP.RECT RC PRN (12:00)
[2022-11-21] MEDS ORDERED: MAG HYDROX/AL HYDROX/SIMETH 30 ML UDC PO PRN (12:00)
[2022-11-21] MEDS ORDERED: NA PHOS,M-B/NA PHOS,DI-BA 1 EA ENEMA RC PRN (12:00)
[2022-11-21] MEDS ORDERED: ONDANSETRON 4 MG TAB.RAPDIS PO PRN (12:00)
[2022-11-21] MEDS ORDERED: HYDROCODONE/APAP 5/325MG TABLET PO PRN (12:00)
[2022-11-21] MEDS ORDERED: MECLIZINE HCL 25 MG TABLET PO PRN (12:00)
[2022-11-21] MEDS ORDERED: Z GUARD REMEDY 4 OZ OINT TP PRN (12:00)
[2022-11-21] MEDS ORDERED: LOPERAMIDE HCL (2 MG CAP) 2 MG CAPSULE PO PRN (12:00)
[2022-11-21] MEDS ORDERED: GUAIFENESIN 300 MG/15 ML UDC PO PRN (12:00)
[2022-11-21] MEDS ORDERED: IV NS 0.9% 1,000 ML IV PRN (12:00)
--- NOTE | 2022-11-21 12:26 | NUR ---
NOTIFIED NURSING SUP PT IS READY FOR BED ASSIGNMENT.
--- NOTE | 2022-11-21 12:28 | NUR ---
ROOM 118-1, ADMITTING AWARE
[2022-11-21] MEDS ORDERED: LIDOCAINE 5% (PATCH) 1 EA PATCH TP PRN (13:00)
--- NOTE | 2022-11-21 13:01 | NUR ---
AWAITING FOR BED , NURSING SUP AWARE .
[2022-11-21] MEDS ORDERED: IOHEXOL-300 100 ML VIAL IV ONE (13:03)
[2022-11-21] MEDS ORDERED: IV NS 0.9% 250 ML IV ONE (13:03)
[2022-11-21 14:37] VITALS: BP 91/40; TEMP 98.6
--- NOTE | 2022-11-21 14:37 | NUR ---
PATIENT ADMITTED FORM ER VIA STRETCHER WITH 02 4 LPM NC SATING AT 96 %. COVID POSITIVE. ALERT X 3. RENTAL CAR PORTER SINUS RHYTHM 98. IV ON RIGHT AC G20 PATENT SALINE LOCKED. BACK BLISTERS FLUID CLEAR FILLED. OWN UPPER TEETH, PARTIALS ON LOWER TEETH. SPEECH IS CLEAR . LI CATHETER 16X10 WITH YELLOW URINE. HOB ELEVATED. BILATERAL HALF SIDE RAILS UP X2. BED IN LOW POSITION, LOCKED, EXIT ALARM ON. CALL LIGHT IN REACH. ISOLATION PRECAUTIONS MAINTAINED.
--- NOTE | 2022-11-21 14:43 | NUR ---
PT TRANSFERED TO ROOM 108 TELE BED IN STABLE CONDITION .
[2022-11-21] MEDS: clonazePAM 0.5 MG TABLET PO SCH ×2 (15:28→16:32)
[2022-11-21] MEDS: METHOCARBAMOL (750MG) 750 MG TABLET PO SCH ×2 (15:29→16:32)
[2022-11-21] MEDS: PILOCARPINE HCL 5 MG TABLET PO SCH ×2 (15:29→17:08)
--- NOTE | 2022-11-21 15:35 | NUR ---
1300 PO MEDICATIONS NOT ADMINISTERED PATIENT CAME FORM ER AT 1437. PER PATIENT NOT ALLEGIC TO TRAMADOL, SHE IS NOT ALLERCIC TO NORCO, AND SHE IS NOT ALLERGIC TO DILAUDID.
[2022-11-21] MEDS: CEFTRIAXONE 1 G in IV D5W 50 ML IV SCH (16:24)
[2022-11-21] MEDS: GABAPENTIN 400 MG CAPSULE PO SCH (16:32)
[2022-11-21] MEDS: CARVEDILOL 3.125 MG TABLET PO SCH (17:00)
--- NOTE | 2022-11-21 17:07 | NUR ---
SPOKE TO PHARMACY AND INFORMED THAT PATIENT WILL TELL SON TO BRING HER [facility].
--- NOTE | 2022-11-21 17:14 | NUR ---
DOCTOR JOSSELIN INFORMED PATIENT COREG 1700 DOSE HELD BP IS 91/40 HR 89 SINUS RHYTHM.
--- NOTE | 2022-11-21 18:59 | NUR ---
ALERT AND ORIENTED X3. UNLABORED BREATHING AT 4LPM NC SATING 96%. MOUNTER SINUS RHYTHM 84. RIGHT AC G20 WITH IVF OF NS 75ML/HR. HOB ELEVATED, BILATERAL HALF SIDE RAILS UP X2. BED IN LOW POSITION, LOCKED, EXIT ALARM ON. CALL LIGHT IN REACH. KEPT LI CATHETER WITH YELLOW URINE.
[2022-11-21] MEDS ORDERED: ALBUTEROL FS 2.5 MG/0.5 ML VIAL.NEB NEB PRN (19:30)
[2022-11-21] MEDS ORDERED: IPRATROPIUM NEB FS 0.5 MG/2.5 ML AMPUL.NEB NEB PRN (19:30)
--- NOTE | 2022-11-21 19:30 | NUR ---
PIGMENT MIXER OPENING NOTES RECEIVED PATIENT ALERT AND ORIENTED X3. UNLABORED BREATHING AT 4LPM NC SATING 96%. TUBE BUILDER AIRPLANE SINUS RHYTHM 84. RIGHT AC G20 WITH IVF OF NS 75ML/HR. HOB ELEVATED, BILATERAL HALF SIDE RAILS UP X2. BED IN LOW POSITION, LOCKED, EXIT ALARM ON. CALL LIGHT IN REACH. WILL CONTINUE TO MONITOR
[2022-11-21 20:00] VITALS: BP 116/64; TEMP 98.6
[2022-11-21] MEDS: MIRTAZAPINE 15 MG TABLET PO SCH (21:25)
[2022-11-21] MEDS: HYDROMORPHONE HCL 2 MG TABLET PO PRN (22:34)
[2022-11-22] VITALS: BP 117/68; TEMP 98.4
[2022-11-22] MEDS: ACETAMINOPHEN 325 MG TABLET PO PRN ×4 (00:15→23:29)
--- NOTE | 2022-11-22 01:49 | NUR ---
EDUCATION FACULTY MEMBER NOTE PATIENT NOTED WITH EPISODE OF 8-10 BEAT VTACH, HR ELEVATED TO MORE THAN 200BPM NON SUSTAINING, ALSO SHOWING FEVER OF 101, TYLENOL GIVEN, MD HODGE MADE AWARE, RESPONDED WITH NNO AT THIS TIME
[2022-11-22 04:00] VITALS: BP 120/74; TEMP 97.3
--- NOTE | 2022-11-22 06:00 | NUR ---
MEDIA CENTER ASSISTANT CLOSING NOTES PATIENT ALERT AND ORIENTED X3. UNLABORED BREATHING AT 4LPM NC SATING 97%. ONLINE RETAILER SINUS RHYTHM 93. RIGHT AC G20 WITH IVF OF NS 75ML/HR. DENIES PAIN AT THIS TIME, ALL DUE MEDS GIVEN ORDERED BY MD, TOLERATED WELL, HOB ELEVATED, BILATERAL SIDE RAILS UP X2. BED IN LOW POSITION, LOCKED, EXIT ALARM ON. CALL LIGHT IN REACH. WILL ENDORSE ITZ TO AM SHIFT RN
[2022-11-22 07:36] LABS: BASOPHILS % (AUTO) 0.4 % (0.0-2.0); EOSINOPHILS % (AUTO) 0.1 % (0.0-6.0); HEMATOCRIT 34 % (33-45); HEMOGLOBIN 11.4 g/dL (11.5-14.8); LYMPHOCYTES # (AUTO) 1.2 K/uL (0.8-4.8); LYMPHOCYTES % (AUTO) 20.3 % (20.0-44.0); MEAN CORPUSCULAR HGB CONC 34 g/dl (31.0-36.0); MEAN CORPUSCULAR VOLUME 95 fL (82-100); MONOCYTES # (AUTO) 0.6 K/uL (0.1-1.30); MONOCYTES % (AUTO) 10.5 % (2.0-12.0); NEUTROPHILS # (AUTO) 3.9 K/uL (1.8-8.9); NEUTROPHILS % (AUTO) 68.7 % (43.0-81.0); PLATELET COUNT (AUTO) 112 K/uL (150-450); RED BLOOD CELL COUNT(AUTO) 3.59 MIL/uL (4.0-5.2); WHITE BLOOD COUNT (AUTO) 5.7 K/uL (4.3-11.0)
--- NOTE | 2022-11-22 07:45 | NUR ---
tele r n note patient in bed ,alert, oriented on 4l nc , no sob noted at this time, on tele monitor sr hr 84 , rt ac hl intact and flushed well ,on ivf as ordered , bed in lowest and locked position , no sob noted ,safety measure implemented, will cont to monitor
[2022-11-22 08:00] VITALS: BP 114/47; TEMP 99.4
[2022-11-22 08:08] LABS: CALCIUM, SERUM 8.5 mg/dL (8.5-10.1); CREATININE 0.7 mg/dL (0.6-1.3); MAGNESIUM 1.8 mg/dL (1.8-2.4); PHOSPHORUS 3.4 mg/dL (2.5-4.9); POTASSIUM 3.5 mmol/L (3.5-5.1)
[2022-11-22] MEDS: METHOCARBAMOL (750MG) 750 MG TABLET PO SCH ×3 (08:46→17:16)
[2022-11-22] MEDS: GABAPENTIN 400 MG CAPSULE PO SCH ×3 (08:47→17:16)
[2022-11-22] MEDS: predniSONE 5 MG TABLET PO SCH (08:47)
[2022-11-22] MEDS: clonazePAM 0.5 MG TABLET PO SCH ×3 (08:47→17:16)
[2022-11-22] MEDS: PANTOPRAZOLE 40 MG TABLET.DR PO SCH (08:47)
[2022-11-22] MEDS: LORATADINE 10 MG TABLET PO SCH (08:47)
[2022-11-22] MEDS: CARVEDILOL 3.125 MG TABLET PO SCH ×2 (08:47→17:00)
[2022-11-22] MEDS: PILOCARPINE HCL 5 MG TABLET PO SCH ×3 (08:48→17:00)
[2022-11-22] MEDS ORDERED: VALBENAZINE TOSYLATE 80 MG PO SCH (09:00)
[2022-11-22] MEDS: ENOXAPARIN SODIUM 40 MG/0.4 ML DISP.SYRIN SQ SCH (09:27)
[2022-11-22] MEDS: HYDROMORPHONE HCL 2 MG TABLET PO PRN ×3 (09:29→21:22)
--- NOTE | 2022-11-22 09:38 | NUR ---
STUNT PERFORMER NOTE DILAUDID 4 MG PO MG GIVEN ORDERED BP 114/47 SATURATION 92%, WILL MONITOR
--- NOTE | 2022-11-22 10:30 | NUR ---
telecommunication equipment repairer note assisted to bsc, able to make bm ,keep clean dry. all needs attended
[2022-11-22 12:00] VITALS: BP 102/66; TEMP 99.1
[2022-11-22] MEDS: TRAMADOL HCL 50 MG TABLET PO SCH (12:00)
--- NOTE | 2022-11-22 12:00 | NUR ---
television engineering teacher note midline on lt upper arm inserted as ordered. ate lunch only 25% , refused gabapentin po despite explanation
[2022-11-22] MEDS: CEFTRIAXONE 1 G in IV D5W 50 ML IV SCH (12:42)
[2022-11-22] MEDS ORDERED: ALBUTEROL FS 2.5 MG/0.5 ML VIAL.NEB NEB SCH (13:30)
--- NOTE | 2022-11-22 14:47 | NUR ---
telecom manager note rounds made, resting comfortably,all needs attended, call light within reach
[2022-11-22 16:00] VITALS: BP 102/60; TEMP 98.9
--- NOTE | 2022-11-22 18:28 | NUR ---
telephone information clerk note \ patient in bed, fed dinner , all needs attended, turn reposition , on 4l nc, no sob noted at his time, on tele monitor sr hr 87, midline on lt upper arm , bed in lowest and locked position , with Castorena cath to gravity with yellow color urine , safety measure implemented call light within reach, resting comfortably after Dilaudid 4 mg po given will cont to monitor
--- NOTE | 2022-11-22 19:03 | NUR ---
FULFILLMENT SPECIALIST NOTE REPORTED TO DR FLORES THAT D DIMER 2.53 OK TO ORDER DUPLEX STUDY BILATERAL LOWER LEGS , ORDER CARRIED OUT , WILL F\U
[2022-11-22] MEDS: IPRATROPIUM NEB FS 0.5 MG/2.5 ML AMPUL.NEB NEB SCH (19:30)
[2022-11-22 20:00] VITALS: BP 120/72; TEMP 100.9
--- NOTE | 2022-11-22 20:11 | NUR ---
RT NOTE TX NOT GIVEN DUE TO POSITIVE PCR RESULTS. NO SOB NOTED AT THIS TIME. RN NOTIFIED.
--- NOTE | 2022-11-22 20:13 | NUR ---
RN OPENING NOTES RECEIVED PATIENT ALERT AND ORIENTED X3. UNLABORED BREATHING AT O2SAT 4LPM NC , CHICK SEXER SINUS RHYTHM. IV ACCESS L MIDLINE SALINE LOCK. HOB ELEVATED, SIDE RAILS UP X3. BED IN LOW POSITION, LOCKED, ALARM ON. SAFETY MEASURE IN PLACE . CALL LIGHT IN REACH.
--- NOTE | 2022-11-22 20:40 | NUR ---
RN NOTE PATIENT TEMP IS 100.9F, REFUSED TYLENOL AND STATED "I'M ALLERGIC TO TYLENOL"
[2022-11-22] MEDS: MIRTAZAPINE 15 MG TABLET PO SCH (21:21)
--- NOTE | 2022-11-22 23:30 | NUR ---
RN NOTES PATIENT NOTED TEMP 100.6 F EDUCATED THE PATIENT ABOUT THE BENEFITS OF TAKING TYLENOL FOR FEVER.PATIENT COMPLIED TYLENOL 650MG ADMINISTERED
[2022-11-23] VITALS: BP 103/57; TEMP 99.6
[2022-11-23] MEDS: IPRATROPIUM NEB FS 0.5 MG/2.5 ML AMPUL.NEB NEB SCH ×4 (01:30→19:30)
[2022-11-23 04:00] VITALS: BP 107/61; TEMP 98
--- NOTE | 2022-11-23 07:03 | NUR ---
RN CLOSING NOTES PATIENT IN BED ALERT AND ORIENTED X3. UNLABORED BREATHING AT O2SAT 4LPM NC , DOUBLE SPINDLE SHAPER OPERATOR SINUS RHYTHM. IV ACCESS L MIDLINE SALINE LOCK. LI CATHETER IN PLACE DRAINING CLEAR YELLOW URINE, 300 ML UO. HOB ELEVATED, SIDE RAILS UP X3. BED IN LOW POSITION, LOCKED, ALARM ON. SAFETY MEASURE IN PLACE . ALL MEDICATION GIVEN ON TIME. CALL LIGHT IN REACH. ALL NURSING NEEDS ATTENDED.WILL ENDORSE TO DAY SHIFT NURSE.
--- NOTE | 2022-11-23 07:54 | NUR ---
MS RN OPENING NOTES RECEIVED PATIENT IN BED ALERT AND ORIENTED X3. UNLABORED BREATHING AT O2SAT 4LPM NC , AT THIS TIME. SLEEVE SETTER SAFETY STITCH SINUS RHYTHM 78. IV ACCESS L MIDLINE SALINE LOCK. LI CATHETER IN PLACE DRAINING CLEAR YELLOW URINE, HOB ELEVATED, SIDE RAILS UP X3. BED IN LOW POSITION, LOCKED, ALARM ON. SAFETY MEASURE IN PLACE . on covid isolation precautions
[2022-11-23 08:00] VITALS: BP 121/58; TEMP 98.2
[2022-11-23] MEDS: CARVEDILOL 3.125 MG TABLET PO SCH ×2 (08:33→16:28)
[2022-11-23] MEDS: PANTOPRAZOLE 40 MG TABLET.DR PO SCH (08:33)
[2022-11-23] MEDS: GABAPENTIN 400 MG CAPSULE PO SCH ×3 (08:33→17:06)
[2022-11-23] MEDS: LORATADINE 10 MG TABLET PO SCH (08:33)
[2022-11-23] MEDS: clonazePAM 0.5 MG TABLET PO SCH ×3 (08:33→17:06)
[2022-11-23] MEDS: predniSONE 5 MG TABLET PO SCH (08:33)
[2022-11-23] MEDS: PILOCARPINE HCL 5 MG TABLET PO SCH ×3 (08:34→17:06)
[2022-11-23] MEDS: METHOCARBAMOL (750MG) 750 MG TABLET PO SCH ×3 (08:35→17:06)
[2022-11-23] MEDS: ENOXAPARIN SODIUM 40 MG/0.4 ML DISP.SYRIN SQ SCH (08:36)
[2022-11-23] MEDS: HYDROMORPHONE HCL 2 MG TABLET PO PRN ×2 (10:26→21:38)
[2022-11-23 12:00] VITALS: BP 122/72; TEMP 98.9
[2022-11-23] MEDS: TRAMADOL HCL 50 MG TABLET PO SCH (12:22)
[2022-11-23] MEDS: CEFTRIAXONE 1 G in IV D5W 50 ML IV SCH (13:00)
[2022-11-23] MEDS: ENSURE ENLIVE 237 ML LIQUID (VANILLA) PO SCH ×2 (14:20→18:10)
[2022-11-23 16:00] VITALS: BP 102/66; TEMP 98.5
--- NOTE | 2022-11-23 16:29 | NUR ---
RN NOTE PER JERRI GIL TO HOLD COREG AT THIS TIME DUE TO LOW BP 102/66
--- NOTE | 2022-11-23 19:00 | NUR ---
RN OPENING NOTE RECEIVED PATIENT IN BED AAO X3-4, O2 VIA NC AT 4L, TOLERATING WELL, NO SOB NOTED. ON ELEMENTARY ASSISTANT PRINCIPAL SHOWING SR. NO COMPLAINTS OF PAIN OR DISCOMFORT AT THIS TIME. IV ACCESS BRAVO MIDLINE S/L. LI CATHETER IN PLACE DRAINING CLEAR YELLOW URINE. AFEBRILE. PATIENT IS ON DROPLET/CONTACT ISOLATION DUE TO POSITIVE COVID TEST. SAFETY MEASURES IN PLACE: BED LOCKED AND IN LOWEST POSITION, BED ALARM ON, HOB ELEVATED, SIDE RAILS UP X3.
--- NOTE | 2022-11-23 19:34 | NUR ---
MS RN CLOSING NOTE PATIENT IN BED ALERT AND ORIENTED X3. UNLABORED BREATHING AT O2SAT 4LPM NC , TOLERATING WELL AT THIS TIME. ON TELE MONITOR. NO COMPLAINTS OF PAIN OR DISCOMFORT NOTED AT THIS TIME.IV ACCESS L MIDLINE SALINE LOCK. LI CATHETER IN PLACE DRAINING CLEAR YELLOW URINE, HOB ELEVATED, SIDE RAILS UP X3. BED IN LOW POSITION, LOCKED, ALARM ON. SAFETY MEASURE IN PLACE . on covid isolation precautions
[2022-11-23 20:00] VITALS: BP 133/76; TEMP 98.2
--- NOTE | 2022-11-23 20:00 | NUR ---
RT NOTE TX NOT GIVEN DUE TO POSITIVE PCR RESULTS. NO DISTRESS NOTED. RN NOTIFIED.
[2022-11-23] MEDS: MIRTAZAPINE 15 MG TABLET PO SCH (21:38)
[2022-11-24] VITALS: BP 118/70; TEMP 98.2
[2022-11-24] MEDS: IPRATROPIUM NEB FS 0.5 MG/2.5 ML AMPUL.NEB NEB SCH ×4 (01:30→19:30)
[2022-11-24 04:00] VITALS: BP 124/68; TEMP 97.9
--- NOTE | 2022-11-24 06:47 | NUR ---
RN CLOSING NOTE PATIENT IN BED AAO X3-4, O2 VIA NC AT 4L, TOLERATING WELL, NO SOB NOTED. ON YARD ASSISTANT SHOWING SR. NO COMPLAINTS OF PAIN OR DISCOMFORT AT THIS TIME. IV ACCESS BRAVO MIDLINE S/L. LI CATHETER IN PLACE DRAINING CLEAR YELLOW URINE, UO 750 ML. PATIENT IS ON DROPLET/CONTACT ISOLATION DUE TO POSITIVE COVID TEST. SAFETY MEASURES IN PLACE: BED LOCKED AND IN LOWEST POSITION, BED ALARM ON, HOB ELEVATED, SIDE RAILS UP X3.
--- NOTE | 2022-11-24 07:40 | NUR ---
RN OPENING NOTE PATIENT SLEEPING IN BED, EASILY AWAKEN BY VERBAL STIMULI AO X3-4, O2 VIA NC AT 4L, TOLERATING WELL, NO SOB NOTED. ON RESEARCH CLERK SHOWING SR HR 75. NO SIGNS OF ANY KIND OF DISTRESS NOTED AT THIS TIME. IV ACCESS BRAVO MIDLINE S/L. LI CATHETER IN PLACE DRAINING CLEAR YELLOW URINE. PATIENT IS ON DROPLET/CONTACT ISOLATION DUE TO POSITIVE COVID TEST. SAFETY MEASURES IN PLACE: BED LOCKED AND IN LOWEST POSITION, BED ALARM ON, HOB ELEVATED, SIDE RAILS UP X3. WILL CONTINUE TO MONITOR.
[2022-11-24 08:00] VITALS: BP 137/77; TEMP 98.2
[2022-11-24] MEDS: METHOCARBAMOL (750MG) 750 MG TABLET PO SCH ×3 (09:03→16:02)
[2022-11-24] MEDS: PANTOPRAZOLE 40 MG TABLET.DR PO SCH (09:03)
[2022-11-24] MEDS: GABAPENTIN 400 MG CAPSULE PO SCH ×3 (09:03→16:02)
[2022-11-24] MEDS: CARVEDILOL 3.125 MG TABLET PO SCH ×2 (09:04→16:20)
[2022-11-24] MEDS: clonazePAM 0.5 MG TABLET PO SCH ×3 (09:04→16:02)
[2022-11-24] MEDS: PILOCARPINE HCL 5 MG TABLET PO SCH ×3 (09:04→16:02)
[2022-11-24] MEDS: LORATADINE 10 MG TABLET PO SCH (09:05)
[2022-11-24] MEDS: predniSONE 5 MG TABLET PO SCH (09:15)
[2022-11-24] MEDS: ENOXAPARIN SODIUM 40 MG/0.4 ML DISP.SYRIN SQ SCH (09:27)
[2022-11-24] MEDS: HYDROMORPHONE HCL 2 MG TABLET PO PRN ×3 (09:52→22:19)
[2022-11-24] MEDS: ENSURE ENLIVE 237 ML LIQUID (VANILLA) PO SCH ×3 (09:56→17:50)
[2022-11-24] MEDS: TRAMADOL HCL 50 MG TABLET PO SCH (12:00)
[2022-11-24] MEDS: CEFTRIAXONE 1 G in IV D5W 50 ML IV SCH (12:03)
[2022-11-24 12:39] VITALS: BP 135/75; TEMP 98.2
--- NOTE | 2022-11-24 16:21 | NUR ---
RN NOTES PER DR. SCHWAB, TO HOLD CARVEDILOL DUE TO LOW BP, 100/60. TO MONITOR.
[2022-11-24 17:30] VITALS: BP 100/60; TEMP 97.9
--- NOTE | 2022-11-24 18:43 | NUR ---
RN CLOSING NOTE PATIENT RESTING-+ IN BED A/O X3-4, O2 VIA NC AT 4L, TOLERATING WELL SATURATING AT 96%, NO SOB AND NOT IN ANY FORM OF DISTRESS NOTED. ON REAM CUTTER SHOWING SR 75. NO COMPLAINTS OF PAIN OR DISCOMFORT AT THIS TIME. IV ACCESS BRAVO MIDLINE S/L. LI CATHETER IN PLACE DRAINING CLEAR YELLOW URINE, UO 600 ML. PATIENT IS ON DROPLET/CONTACT ISOLATION DUE TO POSITIVE COVID TEST. ALL NEEDS ATTENDED, ALL DUE MEDS GIVEN, NO SIGNIFICANT CHANGES ON PATIENT'S CONDITION NOTED ALL TROUGHOUT THE SHIFT. SAFETY MEASURES IN PLACE: BED LOCKED AND IN LOWEST POSITION, BED ALARM ON, HOB ELEVATED, SIDE RAILS UP X3. ENDORSED TO NEXT NURSE FOR ITZ.
[2022-11-24 20:00] VITALS: BP 126/60; TEMP 99.2
--- NOTE | 2022-11-24 20:20 | NUR ---
RT NOTE TX NOT GIVEN DUE TO POSITIVE PCR RESULTS. RN NOTIFIED. NO RESPIRATORY DISTRESS NOTED AT THIS TIME.
--- NOTE | 2022-11-24 20:45 | NUR ---
MARKETING FINANCE SPECIALIST OPENING NOTES RECEIVED PATIENT IN BED, A/O X 3-4 ABLE TO VERBALIZED NEEDS AND CONCERNS,PATIENT IS COVID-19 POSITIVE. PATIENT IS ON BEDREST BED ALARM ON. HOOKED TO OXYGEN VIA NASAL CANNULA AT 4LPM SATURATING WELL. NO SOB/ NOTED AT THIS TIME. WITH INDWELLING LI CATHETER CONNECTED TO URINE BAG NOTED URINE OUTPUT. WITH IV ACCESS AT [facility] NO SWELLING OR INFILTRATION NOTED. NO PAIN OR DISCOMFORT NOTED. NO CHEST PAIN OR DISTRESS NOTED. KEPT BED ON LOWER LOCK POSITION, KEPT SIDE RAILS UP X 2 ALL THE TIME, KEPT CALL LIGHT WITHIN AT REACH. ISOLATION PRECAUTIONS MAINTAIN. KPET PATIENT WARM AND COMFORTABLE. WILL CONTINUE TO MONITOR.
[2022-11-24] MEDS: MIRTAZAPINE 15 MG TABLET PO SCH (22:14)
[2022-11-25] VITALS: BP 126/60; TEMP 99.2
[2022-11-25] MEDS: IPRATROPIUM NEB FS 0.5 MG/2.5 ML AMPUL.NEB NEB SCH ×2 (01:30→07:35)
[2022-11-25 04:00] VITALS: BP 126/60; TEMP 99.2
--- NOTE | 2022-11-25 04:00 | NUR ---
RN NOTES PATIENT REFUSED VITAL SIGNS AND MORNING CARE. WILL CONTINUE TO MONITOR.
[2022-11-25] MEDS: HYDROMORPHONE HCL 2 MG TABLET PO PRN ×2 (05:55→11:15)
--- NOTE | 2022-11-25 06:09 | NUR ---
RN NOTES PATIENT COMPLAIN OF PAIN AND DILAUDID 4MG PO GIVEN TOLERATED WELL. WILL CONTINUE TO MONITOR.
--- NOTE | 2022-11-25 06:42 | NUR ---
RN NEUROSURGICAL CLOSING NOTES PATIENT IS IN BED, A/O X 3 ON MODERATE HIGH BACK REST POSITION PATIENT IS ASLEEP. HOOKED OXYGEN VIA NASAL CANNULA AT 4LPM SATURATING WELL NO SOB/ NOTED. PATIENT IS ON AIRBORNE PRECAUTION BECAUSE OF COVID-19 VIRUS. ATTACHED TO TELE MONITORING DEVICE. PATIENT IS ON BED REST AND REFUSED MORNING CARE AND REQUESTED IT TO BE DONE AT 8AM ONWARD OR AFTER BREAKFAST. WITH INDWELLING LI CATHETER CONNECTED TO URINE BAG WITH URINE OUTPUT NOTED. ALL DUE MEDICATIONS GIVEN , ALL NEEDS ATTENDED, KEPT BED ON LOWER LOCKED POSITION , KEPT SIDE RAILS UP X 2 ALL THE TIME, KEPT PATIENT WARM AND COMFORTABLE. WILL ENDORSED TO AM SHIFT FOR ITZ. Addendum: 11/25/22 at 1614 by NERI LOWE RN 1530: Patient is alert and oriented x3. On 02 3 liters per minute nasal cannula sating at 95%. gambling monitor sinus Rhythm 83. Left upper arm Midline discontinued, and no s/s of complications. No bleeding. Li catheter discontinued. Urine output 500ml yellow urine. patient Discharge instructions provided and verbalized understanding.
[2022-11-25 08:00] VITALS: BP 99/62; TEMP 98.7
[2022-11-25] MEDS: PANTOPRAZOLE 40 MG TABLET.DR PO SCH (08:18)
[2022-11-25] MEDS: METHOCARBAMOL (750MG) 750 MG TABLET PO SCH ×2 (08:18→12:59)
[2022-11-25] MEDS: LORATADINE 10 MG TABLET PO SCH (08:18)
[2022-11-25] MEDS: ENSURE ENLIVE 237 ML LIQUID (VANILLA) PO SCH ×2 (08:18→14:19)
[2022-11-25] MEDS: GABAPENTIN 400 MG CAPSULE PO SCH ×2 (08:18→12:59)
[2022-11-25] MEDS: clonazePAM 0.5 MG TABLET PO SCH ×2 (08:18→12:59)
[2022-11-25] MEDS: predniSONE 5 MG TABLET PO SCH (08:22)
[2022-11-25] MEDS: PILOCARPINE HCL 5 MG TABLET PO SCH ×2 (08:22→13:01)
[2022-11-25] MEDS: ENOXAPARIN SODIUM 40 MG/0.4 ML DISP.SYRIN SQ SCH (08:23)
[2022-11-25] MEDS: CARVEDILOL 3.125 MG TABLET PO SCH (08:26)
[2022-11-25 12:00] VITALS: BP 109/71; TEMP 99
[2022-11-25] MEDS ORDERED: IPRATROPIUM/ALBUTEROL INHALER IH SCH (12:00)
[2022-11-25] MEDS: TRAMADOL HCL 50 MG TABLET PO SCH (12:59)
[2022-11-25] MEDS: CEFTRIAXONE 1 G in IV D5W 50 ML IV SCH (13:00)
[2022-11-25 14:25] LABS: BASOPHILS % (AUTO) 0.4 % (0.0-2.0); HEMATOCRIT 36 % (33-45); LYMPHOCYTES # (AUTO) 1.2 K/uL (0.8-4.8); LYMPHOCYTES % (AUTO) 44.6 % (20.0-44.0); MEAN CORPUSCULAR HGB CONC 33 g/dl (31.0-36.0); MEAN CORPUSCULAR VOLUME 95 fL (82-100); MONOCYTES # (AUTO) 0.2 K/uL (0.1-1.30); MONOCYTES % (AUTO) 8.7 % (2.0-12.0); NEUTROPHILS # (AUTO) 1.2 K/uL (1.8-8.9); NEUTROPHILS % (AUTO) 44.3 % (43.0-81.0); PLATELET COUNT (AUTO) 132 K/uL (150-450); RED BLOOD CELL COUNT(AUTO) 3.81 MIL/uL (4.0-5.2); WHITE BLOOD COUNT (AUTO) 2.6 K/uL (4.3-11.0)
[2022-11-25 14:41] LABS: CALCIUM, SERUM 8.9 mg/dL (8.5-10.1); CREATININE 0.8 mg/dL (0.6-1.3); MAGNESIUM 1.8 mg/dL (1.8-2.4); PHOSPHORUS 3.4 mg/dL (2.5-4.9)
[2022-11-25 16:00] VITALS: BP 109/71; TEMP 98.8
--- NOTE | 2022-11-25 16:15 | NUR ---
Patient is alert and oriented x3. Patient discharge instructions provided and verbalized understanding. Ambulance here [place] [phone] report given.Patient discharged as ordered via ambulance accompanied by 3 WATER TAXI CAPTAIN via [facility] to [facility]. [phone]. [phone] [id number]
[2022-11-25 16:20] LABS: EOSINOPHILS % (MANUAL) 1 % (0-4); LYMPHOCYTES % (MANUAL) 43 % (16-48); MONOCYTES % (MANUAL) 10 % (0-11.0); NEUTROPHILS % (MANUAL) 44 (42-76); REACTIVE LYMPHOCYTES 2 % (0-0)
== END 2022-11-25 17:04 | DRG 177 ==
LOC: ER 09:42 → TELE1 13:25
PROVIDERS: ADMIT Internal Medicine; ATTEND Internal Medicine
PROC: 05H633Z Insertion of Infusion Device into Left Subclavian Vein, Percutaneous Approach (ICD-10-PCS; principal; 2022-11-22)
PROC: B547ZZA Ultrasonography of Left Subclavian Vein, Guidance (ICD-10-PCS; 2022-11-22)
DX: U07.1 COVID-19 (principal); J96.21 Acute and chronic respiratory failure with hypoxia; J44.1 Chronic obstructive pulmonary disease with (acute) exacerbation; F41.9 Anxiety disorder, unspecified; Z96.641 Presence of right artificial hip joint; F32.A Depression, unspecified; E11.42 Type 2 diabetes mellitus with diabetic polyneuropathy; Z79.4 Long term (current) use of insulin; G24.01 Drug induced subacute dyskinesia; R53.1 Weakness; M81.0 Age-related osteoporosis without current pathological fracture; W19.XXXA Unspecified fall, initial encounter; Y93.9 Activity, unspecified; Y92.89 Other specified places as the place of occurrence of the external cause; Z99.81 Dependence on supplemental oxygen
CPT/HCPCS: 36410; 36415; 70450-TC; 71045-TC; 80048-TC; 80076-TC; 81001; 83605-TC; 83735-TC; 83880; 84100-TC; 84484-TC; 85025-TC; 85378-TC; 86140-TC; 87040-TC; 87081-TC; 87086-TC; 93970-TC; 94799-TC; 97110-TC; 97116-TC; 97530-TC; A4223; G0378; J0696; J1650; J2543; J3370; J7030; J7050; J7060; J7512; Q9967

== ENCOUNTER 2022-12-19 13:56 | Inpatient (IN) | payer MEDICARE, OTHER ==
[~2022-12-19] VITALS: Ht 160 cm; Wt 54.4 kg
[~2022-12-19 13:56] MED LIST changes: +BLOO-668 IN; +INSU100V30 SQ
--- NOTE | 2022-12-19 14:05 | NUR ---
PATIENT CAME TO EMERGENCY DEPARTMENT WITH COMPLAINTS OF WEAKNESS FROM A FACILITY .ALERT AND ORIENTED*4.ON ROOM AIR.ATTACHED TO FIRE ENGINE PUMP OPERATOR AND PULSE OXYMETER.CHANGED TO HOSPITAL GOWN.AWAITING MD FOR EVALUATION.
--- NOTE | 2022-12-19 14:06 | NUR ---
dr trejo AT BED SIDE
--- NOTE | 2022-12-19 14:08 | NUR ---
IV INSERTED ON RT FORE ARM NO 20 G ,BLOOD SAMPLE COLLECTED AND SEND TO LAB.
--- NOTE | 2022-12-19 14:30 | NUR ---
MOVE SHEET SUBMITTED.
--- NOTE | 2022-12-19 14:34 | NUR ---
LAB AT BED SIDE
[2022-12-19 14:37] LABS: BASOPHILS # (AUTO) 0.1 K/uL (0.0-0.2); BASOPHILS % (AUTO) 0.8 % (0.0-2.0); EOSINOPHILS % (AUTO) 0.8 % (0.0-6.0); HEMATOCRIT 39 % (33-45); HEMOGLOBIN 12.7 g/dL (11.5-14.8); LYMPHOCYTES # (AUTO) 1.1 K/uL (0.8-4.8); MEAN CORPUSCULAR HGB CONC 33 g/dl (31.0-36.0); MEAN CORPUSCULAR VOLUME 95 fL (82-100); MONOCYTES # (AUTO) 0.9 K/uL (0.1-1.30); NEUTROPHILS # (AUTO) 5.9 K/uL (1.8-8.9); NEUTROPHILS % (AUTO) 73.4 % (43.0-81.0); PLATELET COUNT (AUTO) 163 K/uL (150-450); RED BLOOD CELL COUNT(AUTO) 4.09 MIL/uL (4.0-5.2)
[2022-12-19 14:50] LABS: CALCIUM, SERUM 9.2 mg/dL (8.5-10.1); CARBON DIOXIDE 31 mmol/L (21-32); CHLORIDE 103 mmol/L (98-107); CREATININE 0.6 mg/dL (0.6-1.3); GLUCOSE 160 mg/dL (74-106); POTASSIUM 4.2 mmol/L (3.5-5.1); SODIUM SERUM 139 mmol/L (136-145); UREA NITROGEN, BLOOD 12 mg/dL (7-18)
[2022-12-19 15:03] LABS: ALANINE AMINOTRANSFERASE 15 U/L (12-78); ALBUMIN 3.2 g/dL (3.4-5.0); ALKALINE PHOSPHATASE 61 U/L (46-116); ASPARTATE AMINOTRANSFERASE 14 U/L (15-37); BILIRUBIN,DIRECT 0.1 mg/dL (0.0-0.2); BILIRUBIN,TOTAL 0.6 mg/dL (0.2-1.0)
--- NOTE | 2022-12-19 15:04 | NUR ---
X RAY AT BED SIDE
--- NOTE | 2022-12-19 15:09 | NUR ---
URINE COLLECTED AND SEND TO LAB
[2022-12-19 15:35] LABS: BILIRUBIN,URINE NEGATIVE (NEGATIVE); COLOR,URINE YELLOW (YELLOW); LEUKOCYTE ESTERASE ,URINE NEGATIVE (NEGATIVE); NITRITE, URINE NEGATIVE (NEGATIVE); PROTEIN,URINE TRACE mg/dl (NEGATIVE); UGLUCOSE NEGATIVE (NEGATIVE)
[2022-12-19 15:48] LABS: BACTERIA,URINE 2+ /HPF (None Seen); RBC,URINE 0-2 /HPF (0-2); SQUAMOUS EPITHELIAL CELL,UR 0-2 /HPF (None Seen); WBC,URINE 0-2 /HPF (0-3)
[2022-12-19] MEDS ORDERED: ACETAMINOPHEN ES 500 MG TABLET ONE (15:48)
[2022-12-19 15:49] LABS: MUCUS,URINE Few /LPF (None Seen)
--- NOTE | 2022-12-19 15:59 | NUR ---
GIVEN TYLENOL 1000MG PER DR PICKARD FOR BACK PAIN, PT REFUSED. SHE STATED," I WANT DILAUDID". DR PICKARD MADE AWARE
[2022-12-19] MEDS ORDERED: IPRATROPIUM NEB FS 0.5 MG/2.5 ML AMPUL.NEB NEB ONE (16:30)
[2022-12-19] MEDS ORDERED: ALBUTEROL FS 2.5 MG/3 ML VIAL.NEB NEB ONE (16:30)
[2022-12-19] MEDS ORDERED: methylPREDNISolone SOD SUCC 125 MG/2ML VIAL IV ONE (16:30)
[2022-12-19] MEDS ORDERED: methylPREDNISolone SOD SUCC 125 MG/2ML VIAL ONE (16:41)
--- NOTE | 2022-12-19 16:41 | NUR ---
BED 101
[2022-12-19] MEDS ORDERED: IPRATROPIUM NEB FS 0.5 MG/2.5 ML AMPUL.NEB ONE (16:48)
[2022-12-19] MEDS ORDERED: ALBUTEROL FS 2.5 MG/3 ML VIAL.NEB ONE (16:48)
[2022-12-19 16:53] VITALS: O2SAT 93
[2022-12-19 17:15] VITALS: O2SAT 99
[2022-12-19] MEDS ORDERED: CEFTRIAXONE 1GM BAG (ER ONLY) 50 ML IV ONE ×2 (17:24→17:30)
--- NOTE | 2022-12-19 17:25 | NUR ---
ADMITTING NOTIFIED BED ASSIGNEMNT
--- NOTE | 2022-12-19 17:28 | NUR ---
BED REPORT GIVEN TO EMILY [id number]
[2022-12-19] MEDS ORDERED: AZITHROMYCIN 500 MG in IV D5W 250 ML IV ONE (17:30)
[2022-12-19] MEDS ORDERED: ACETAMINOPHEN ES 500 MG TABLET PO ONE (17:30)
[2022-12-19] MEDS ORDERED: MAGNESIUM HYDROXIDE 30 ML UDC PO PRN ×2 (18:00→18:30)
[2022-12-19] MEDS ORDERED: NA PHOS,M-B/NA PHOS,DI-BA 1 EA ENEMA RC PRN (18:00)
[2022-12-19] MEDS ORDERED: ACETAMINOPHEN 650 MG/SUPP.RECT RC PRN (18:00)
[2022-12-19] MEDS ORDERED: LORAZEPAM 0.5 MG TABLET PO PRN (18:00)
[2022-12-19] MEDS ORDERED: BISACODYL SUPP (10 MG) 10 MG/SUPP.RECT SUPP.RECT RC PRN (18:00)
[2022-12-19] MEDS ORDERED: LOPERAMIDE HCL (2 MG CAP) 2 MG CAPSULE PO PRN (18:00)
[2022-12-19] MEDS ORDERED: CEFTRIAXONE 1 G in IV D5W 50 ML IV SCH (18:30)
[2022-12-19] MEDS ORDERED: MAG HYDROX/AL HYDROX/SIMETH 30 ML UDC PO PRN (18:30)
[2022-12-19] MEDS ORDERED: DEXTROSE 50%-WATER 50 ML DISP.SYRIN IV PRN (18:30)
[2022-12-19] MEDS ORDERED: ONDANSETRON HCL/PF 4 MG/2 ML VIAL IVP PRN (18:30)
[2022-12-19] MEDS ORDERED: ACETAMINOPHEN 325 MG TABLET PO PRN (18:30)
[2022-12-19] MEDS ORDERED: Z GUARD REMEDY 4 OZ OINT TP PRN (18:30)
[2022-12-19] MEDS: ENOXAPARIN SODIUM 40 MG/0.4 ML DISP.SYRIN SQ SCH (18:34)
--- NOTE | 2022-12-19 18:50 | NUR ---
PATIENT ARRIVED FROM ER VIA STRETCHER A/OX3-4, ON NC 4 LITERS. VITAL SIGNS WNL. SKIN INTACT. ON DIAPER. PATIENT KEPT CLEAN AND DRY. PT AND SWALLOW EVALUATION ORDERED, CURRENTLY PATIENT ON PUREED DIET UNTIL SWALLOW EVAL DONE TOMORROW. IV SITE RIGHT FOREARM #20 INTACT AND PATENT RUNNING ABX. ALL DUE MEDS GIVEN. WILL ENDORSE THE PATIENT TO THE PM NURSE ITZ.
[2022-12-19 20:00] VITALS: BP 103/59; TEMP 98; O2SAT 99
--- NOTE | 2022-12-19 20:00 | NUR ---
RECEIVED PATIENT IN BED, ALERT/ORIENTED X4, STABLE ON 3LPM VIA NC, COMPLAINING OF LOW BACK PAIN, BEDREST, GENERALIZED WEAKNESS, WILL GIVE DILAUDID PO. INCONTINENT OF BOWEL AND BLADDER, KEPT SAFE, CALL LIGHT WITHIN REACH.
[2022-12-19] MEDS: CEFEPIME 2 GM in IV D5W 100 ML IV SCH (20:31)
[2022-12-19] MEDS: HYDROMORPHONE HCL 2 MG TABLET PO PRN (20:31)
[2022-12-19] MEDS: MIRTAZAPINE 15 MG TABLET PO SCH (21:47)
[2022-12-19] MEDS: BLOOD SUGAR DIAGNOSTIC 1 EACH STRIP VI SCH (22:09)
[2022-12-19] MEDS: INSULIN REGULAR, HUMAN 100 UNIT/ML 3 ML VIAL SQ PRN (22:12)
[2022-12-20] VITALS: BP 102/66; TEMP 97; O2SAT 93
[2022-12-20] MEDS: CEFEPIME 2 GM in IV D5W 100 ML IV SCH ×3 (04:10→21:24)
--- NOTE | 2022-12-20 05:58 | NUR ---
ALERT/ORIENTED X4, 3LPM VIA NC, COMPLAINING OF LOW BACK PAIN, CHF EXACERBATION, ALTAF. GENERALIZED WEAKNESS, BEDREST. INCONTINENT OF BOWEL AND BLADDER, SKIN INTACT, HEELS OFFLOADED, PUREED DIET, ABLE TO SWALLOW SMALL MEDICATION. DILAUDID 4 MG PO FOR LOW BACK PAIN WITH ADEQUATE RELIEF. REFUSED BLOOD DRAW THIS MORNING. EDUCATED PATIENT REGARDING RISK AND BENEFITS, STILL REFUSED. PT AND ST EVAL, PAIN CONTROL, FALL PRECAUTION. Addendum: 12/20/22 at 0614 by SHITAL IRENE RN CORRECTED NOTE, COPD EXACERBATION
--- NOTE | 2022-12-20 06:12 | NUR ---
ALERT/ORIENTED X4, 3LPM VIA NC, COMPLAINING OF LOW BACK PAIN, COPD EXACERBATION, ALTAF. GENERALIZED WEAKNESS, BEDREST. INCONTINENT OF BOWEL AND BLADDER, SKIN INTACT, HEELS OFFLOADED, PUREED DIET, ABLE TO SWALLOW SMALL MEDICATION. DILAUDID 4 MG PO FOR LOW BACK PAIN WITH ADEQUATE RELIEF. REFUSED BLOOD DRAW THIS MORNING. EDUCATED PATIENT REGARDING RISK AND BENEFITS, STILL REFUSED. PT AND ST EVAL, PAIN CONTROL, FALL PRECAUTION.
[2022-12-20] MEDS: HYDROMORPHONE HCL 2 MG TABLET PO PRN (06:27)
[2022-12-20] MEDS ORDERED: IPRATROPIUM NEB FS 0.5 MG/2.5 ML AMPUL.NEB NEB PRN (07:00)
[2022-12-20] MEDS ORDERED: ALBUTEROL FS 2.5 MG/0.5 ML VIAL.NEB HHN PRN (07:00)
[2022-12-20] MEDS ORDERED: LIDOCAINE 5% (PATCH) 1 EA PATCH TP PRN (07:00)
[2022-12-20 07:23] LABS: BASOPHILS % (AUTO) 0.2 % (0.0-2.0); HEMATOCRIT 38 % (33-45); HEMOGLOBIN 12.5 g/dL (11.5-14.8); LYMPHOCYTES # (AUTO) 1.2 K/uL (0.8-4.8); LYMPHOCYTES % (AUTO) 12.3 % (20.0-44.0); MEAN CORPUSCULAR HGB CONC 33 g/dl (31.0-36.0); MEAN CORPUSCULAR VOLUME 95 fL (82-100); MONOCYTES # (AUTO) 0.9 K/uL (0.1-1.30); MONOCYTES % (AUTO) 8.8 % (2.0-12.0); NEUTROPHILS # (AUTO) 7.6 K/uL (1.8-8.9); NEUTROPHILS % (AUTO) 78.7 % (43.0-81.0); PLATELET COUNT (AUTO) 151 K/uL (150-450); RED BLOOD CELL COUNT(AUTO) 3.94 MIL/uL (4.0-5.2); WHITE BLOOD COUNT (AUTO) 9.7 K/uL (4.3-11.0)
[2022-12-20] MEDS: BLOOD SUGAR DIAGNOSTIC 1 EACH STRIP VI SCH ×4 (07:30→21:24)
[2022-12-20 07:59] LABS: CALCIUM, SERUM 9.5 mg/dL (8.5-10.1); CREATININE 0.6 mg/dL (0.6-1.3); MAGNESIUM 2.1 mg/dL (1.8-2.4); PHOSPHORUS 3.3 mg/dL (2.5-4.9); POTASSIUM 4.2 mmol/L (3.5-5.1)
[2022-12-20 08:00] VITALS: BP 106/60; TEMP 97.8; O2SAT 93
[2022-12-20] MEDS ORDERED: VALBENAZINE TOSYLATE 80 MG PO SCH (09:00)
[2022-12-20] MEDS: CARVEDILOL 3.125 MG TABLET PO SCH ×2 (09:31→17:08)
[2022-12-20] MEDS: GABAPENTIN 100 MG CAPSULE PO SCH ×3 (09:31→17:09)
[2022-12-20] MEDS: clonazePAM 0.5 MG TABLET PO SCH ×3 (09:31→17:07)
[2022-12-20] MEDS: predniSONE 20 MG TABLET PO SCH (09:32)
[2022-12-20] MEDS: PILOCARPINE HCL 5 MG TABLET PO SCH ×3 (09:32→17:07)
[2022-12-20] MEDS: LORATADINE 10 MG TABLET PO SCH (09:32)
[2022-12-20] MEDS: predniSONE 5 MG TABLET PO SCH (09:38)
[2022-12-20] MEDS: PANTOPRAZOLE 40 MG TABLET.DR PO SCH (09:38)
[2022-12-20 16:00] VITALS: BP 111/65; TEMP 98.2; O2SAT 95
[2022-12-20] MEDS: INSULIN REGULAR, HUMAN 100 UNIT/ML 3 ML VIAL SQ PRN (17:34)
[2022-12-20] MEDS: ENOXAPARIN SODIUM 40 MG/0.4 ML DISP.SYRIN SQ SCH (17:41)
[2022-12-20] MEDS: MIRTAZAPINE 15 MG TABLET PO SCH (21:24)
[2022-12-20] MEDS: *INSULIN REGULAR(HUMULIN R)HUM 100 UNIT/ML VIAL SQ PRN (21:24)
[2022-12-21] VITALS: BP 106/65; TEMP 97.6; O2SAT 100
[2022-12-21] MEDS: CEFEPIME 2 GM in IV D5W 100 ML IV SCH ×3 (05:23→21:00)
[2022-12-21 06:01] LABS: CALCIUM, SERUM 9.7 mg/dL (8.5-10.1); CREATININE 0.7 mg/dL (0.6-1.3); POTASSIUM 3.9 mmol/L (3.5-5.1)
[2022-12-21 06:25] LABS: BASOPHILS % (AUTO) 0.2 % (0.0-2.0); EOSINOPHILS % (AUTO) 0.2 % (0.0-6.0); HEMATOCRIT 36 % (33-45); HEMOGLOBIN 12.1 g/dL (11.5-14.8); LYMPHOCYTES # (AUTO) 2.5 K/uL (0.8-4.8); LYMPHOCYTES % (AUTO) 31.1 % (20.0-44.0); MEAN CORPUSCULAR HGB CONC 33 g/dl (31.0-36.0); MEAN CORPUSCULAR VOLUME 95 fL (82-100); MONOCYTES # (AUTO) 0.7 K/uL (0.1-1.30); MONOCYTES % (AUTO) 8.6 % (2.0-12.0); NEUTROPHILS # (AUTO) 4.8 K/uL (1.8-8.9); NEUTROPHILS % (AUTO) 59.9 % (43.0-81.0); PLATELET COUNT (AUTO) 160 K/uL (150-450); RED BLOOD CELL COUNT(AUTO) 3.83 MIL/uL (4.0-5.2); WHITE BLOOD COUNT (AUTO) 8.1 K/uL (4.3-11.0)
--- NOTE | 2022-12-21 06:35 | NUR ---
ACCOUNTS PAYABLE SPECIALIST CLOSING NOTE PT RESTING IN BED, ASLEEP, BREATHING EVEN AND UNLABORED, 0 S/S OF PAIN, NAD NOTED THIS SHIFT, ALL DUE MEDS GIVEN PER MD ORDERS, TOLERATED WELL, ALL BASIC NEEDS MET AND ANTICIPATED, WILL CONTINUE TO MONITOR
[2022-12-21] MEDS: HYDROMORPHONE HCL 2 MG TABLET PO PRN ×3 (06:45→21:13)
--- NOTE | 2022-12-21 07:30 | NUR ---
RECEIVED PATIENT IN BED, ALERT/ORIENTED X4, STABLE ON 3LPM VIA NASAL CANNULA. COLOR NORMAL FOR ETHNICITY. NO C/O SOB, DYSPNEA, OR CHEST PAIN. INCONTINENT OF BOWEL AND BLADDER. PATIENT REFUSING MEDS AT TIMES. SHE ATTEMPTED TO EXIT THE BUILDING BECAUSE SHE WANTED TO GO HOME. SHE WAS ESCORTED BACK TO BED. BED ALARM ACTIVATED. FREQUENT ROUNDING. ASSISTED WITH ADL'S NEEDED. KEPT SAFE, CALL LIGHT WITHIN REACH. WILL CONTINUE CURRENT POC. Addendum: 12/21/22 at 1842 by REGISTRY [facility] INPATIENT RN5 RN THE ABOVE IS A SHIFT NOTE
[2022-12-21 08:00] VITALS: BP 105/45; TEMP 99.2; O2SAT 92
[2022-12-21] MEDS: PILOCARPINE HCL 5 MG TABLET PO SCH ×4 (08:19→17:03)
[2022-12-21] MEDS: LORATADINE 10 MG TABLET PO SCH (08:20)
[2022-12-21] MEDS: predniSONE 20 MG TABLET PO SCH (08:20)
[2022-12-21] MEDS: predniSONE 5 MG TABLET PO SCH (08:20)
[2022-12-21] MEDS: PANTOPRAZOLE 40 MG TABLET.DR PO SCH (08:20)
[2022-12-21] MEDS: GABAPENTIN 100 MG CAPSULE PO SCH ×4 (08:20→17:03)
[2022-12-21] MEDS: clonazePAM 0.5 MG TABLET PO SCH ×3 (08:20→17:03)
[2022-12-21] MEDS: CARVEDILOL 3.125 MG TABLET PO SCH ×2 (08:26→17:03)
[2022-12-21] MEDS: BLOOD SUGAR DIAGNOSTIC 1 EACH STRIP VI SCH ×4 (08:27→22:22)
[2022-12-21] MEDS ORDERED: LACT-58 PO (10:50)
[2022-12-21] MEDS ORDERED: ALBU2.5V38 IH (10:50)
[2022-12-21] MEDS ORDERED: CYAN500T64 PO (10:50)
[2022-12-21] MEDS ORDERED: CLOT12CR TP (10:50)
[2022-12-21] MEDS ORDERED: MUPI22OI2 TP (10:50)
[2022-12-21] MEDS ORDERED: ALLA266C2 TP (10:50)
[2022-12-21] MEDS ORDERED: IPRA4AER IH (10:50)
[2022-12-21] MEDS: GLUCERNA SHAKE 237 ML CAN PO SCH ×2 (12:20→17:03)
[2022-12-21 16:00] VITALS: BP 101/63; TEMP 98.2
[2022-12-21] MEDS: ENOXAPARIN SODIUM 40 MG/0.4 ML DISP.SYRIN SQ SCH (17:05)
--- NOTE | 2022-12-21 19:40 | NUR ---
OFFSET PRESSMAN OPENING NOTE RECEIVED PATIENT IN BED, ALERT/ORIENTED X4, ANXIOUS AND SHAKY. STABLE ON 3LPM VIA NC. IV R WRIST #22 SL. PT REFUSED IV FLUSH. NO IV FLUID IS RUNNING AT THE MOMENT. SKIN IS INTACT. KEPT SAFE, BED IS LOCKED AND IN LOWEST POSITION. CALL LIGHT WITHIN REACH. WILL CONTINUE TO MONITOR CLOSELY.
--- NOTE | 2022-12-21 21:00 | NUR ---
RN NOTE PT REFUSED MAXIPIME IV DUE TO IV PAIN. RECOMMEND TO START A NEW LINE BUT PT STILL REFUSED.
[2022-12-21] MEDS: MIRTAZAPINE 15 MG TABLET PO SCH (21:12)
--- NOTE | 2022-12-21 21:13 | NUR ---
rn note Pt c/o of 8/10 pain on the hip and her back. Dilaudid PO PRN given. Will continue to monitor.
[2022-12-21] MEDS: *INSULIN REGULAR(HUMULIN R)HUM 100 UNIT/ML VIAL SQ PRN (22:38)
--- NOTE | 2022-12-21 22:39 | NUR ---
RN NOTE BLOOD SUGAR 123. NO INSULIN GIVEN. NO S/S OF HYPO/HYPERGLYCEMIA. WILL CONTINUE TO MONITOR.
--- NOTE | 2022-12-22 00:12 | NUR ---
RN note Pt requested for Ativan for agitation. Ativan PO PRN given. Will continue to monitor.
[2022-12-22] MEDS: HYDROMORPHONE HCL 2 MG TABLET PO PRN ×2 (01:42→06:40)
--- NOTE | 2022-12-22 01:42 | NUR ---
rn note Pt c/o pain on the back and hip. Dilaudid given PO. Will continue to monitor.
[2022-12-22 04:00] VITALS: BP 115/56; TEMP 98.1; O2SAT 95
[2022-12-22] MEDS: CEFEPIME 2 GM in IV D5W 100 ML IV SCH (04:35)
--- NOTE | 2022-12-22 06:38 | NUR ---
RN NOTE PT C/O PAIN. DILAUDID PO PRN GIVEN ORDERED. WILL CONTINUE TO MONITOR.
--- NOTE | 2022-12-22 06:39 | NUR ---
[facility] SHIFT LEAD CLOSING NOTE PATIENT IN BED SLEEPING BUT EASILY AROUSABLE, ANXIOUS AND SHAKY. STABLE ON 4LPM VIA NC TOLERATING WELL SATING AT 95% . IV RT WRIST #22 SL. NO IV FLUID IS RUNNING AT THIS TIME. PT C/O PAIN AT THIS TIME. PAIN MEDS PRN GIVEN ORDERED. SKIN IS INTACT. SAFETY MEASURES IMPLEMENTED, BED IS LOCKED AND IN LOWEST POSITION. SIDE RAILS UP X3. CALL LIGHT WITHIN REACH. WILL ENDORSE CARE TO THE AM SHIFT NURSE.
--- NOTE | 2022-12-22 07:10 | NUR ---
BEESWAX BLEACHER OPENING NOTES Received pt awake in bed AOX4. No complaints of pain or discomfort at this time. Pt is on 4L NC and tolerating it well. IV access on right wrist patent and intact. HOB elevated to pts comfort. Siderails up at all times x3. Call light within reach. Will continue to monitor.
[2022-12-22] MEDS: GLUCERNA SHAKE 237 ML CAN PO SCH (07:44)
[2022-12-22] MEDS: BLOOD SUGAR DIAGNOSTIC 1 EACH STRIP VI SCH ×2 (07:44→11:16)
[2022-12-22 08:00] VITALS: BP 118/86; TEMP 98.1; O2SAT 95
[2022-12-22] MEDS ORDERED: LEVO500T90 PO (08:41)
[2022-12-22] MEDS ORDERED: PRED20TA PO (08:41)
[2022-12-22 08:51] VITALS: BP 118/86
[2022-12-22] MEDS: clonazePAM 0.5 MG TABLET PO SCH (08:51)
[2022-12-22] MEDS: LORATADINE 10 MG TABLET PO SCH (08:51)
[2022-12-22] MEDS: PILOCARPINE HCL 5 MG TABLET PO SCH (08:51)
[2022-12-22] MEDS: CARVEDILOL 3.125 MG TABLET PO SCH (08:51)
[2022-12-22] MEDS: GABAPENTIN 100 MG CAPSULE PO SCH (08:52)
[2022-12-22] MEDS: PANTOPRAZOLE 40 MG TABLET.DR PO SCH (08:53)
[2022-12-22] MEDS ORDERED: predniSONE 20 MG TABLET PO SCH (09:00)
--- NOTE | 2022-12-22 11:55 | NUR ---
SEARCH ENGINE OPTIMIZATION MANAGER NOTES Pt picked up by [facility]. Discharge paperwork and valuables signs by pt. Informed pt that a incident report was done for pts Cell phone. Verbalized understanding. IV access taken out. DIOGENES Adam called to and left a voicemail regarding pts discharge. Next of Kin Sushant Adam called to regarding pts discharge. Sushant verbalized understanding. Transferred to [facility].
== END 2022-12-22 15:51 | DRG 193 ==
LOC: ER 14:03 → MEDSG1 17:39
PROVIDERS: ADMIT Internal Medicine; ATTEND Internal Medicine
DX: J15.9 Unspecified bacterial pneumonia (principal); J96.21 Acute and chronic respiratory failure with hypoxia; J44.1 Chronic obstructive pulmonary disease with (acute) exacerbation; J44.0 Chronic obstructive pulmonary disease with (acute) lower respiratory infection; F32.A Depression, unspecified; F41.9 Anxiety disorder, unspecified; G35 Multiple sclerosis; I10 Essential (primary) hypertension; K21.9 Gastro-esophageal reflux disease without esophagitis; H40.9 Unspecified glaucoma; M06.9 Rheumatoid arthritis, unspecified; M32.9 Systemic lupus erythematosus, unspecified; Z86.16 Personal history of COVID-19; Z87.01 Personal history of pneumonia (recurrent); Z88.6 Allergy status to analgesic agent; Z79.84 Long term (current) use of oral hypoglycemic drugs; M81.0 Age-related osteoporosis without current pathological fracture; Z99.81 Dependence on supplemental oxygen; E11.42 Type 2 diabetes mellitus with diabetic polyneuropathy; Z79.4 Long term (current) use of insulin; R53.1 Weakness; G24.01 Drug induced subacute dyskinesia; G89.4 Chronic pain syndrome; Z96.651 Presence of right artificial knee joint; Z96.649 Presence of unspecified artificial hip joint
CPT/HCPCS: 36415; 71045-TC; 80048-TC; 80076-TC; 81001; 82962-TC; 83605-TC; 83735-TC; 83880; 84100-TC; 84484-TC; 85025-TC; 85730-TC; 87040-TC; 87081-TC; 87086-TC; 92526; 92611-TC; 94799-TC; 97116-TC; 97530-TC; A4223; G0378; J0456; J0692; J0696; J1650; J1815; J2930; J7050; J7060; J7512

== ENCOUNTER 2024-01-01 11:57 | Emergency (ER) | payer MEDICARE, OTHER ==
[~2024-01-01] VITALS: Ht 160 cm; Wt 56.7 kg
[~2024-01-01 11:57] MED LIST changes: -ACET650S11 RC; +ALBU2.5V38 IH; +ALLA266C2 TP; -BISA10SU11 RC; +CLOT12CR TP; +CYAN500T64 PO; -HYDR-4303 PO; -IPRA42SP; +IPRA4AER IH; +LACT-58 PO; +LEVO500T90 PO; -MAGN400O6 PO; +MUPI22OI2 TP; +PRED20TA PO
[2024-01-01 12:05] VITALS: BP 103/66; TEMP 98.3; O2SAT 97
[2024-01-01] MEDS ORDERED: CLOT15CR35 TP (12:08)
== END 2024-01-01 14:45 ==
LOC: ER 11:57
DX: B37.2 Candidiasis of skin and nail (principal); K21.9 Gastro-esophageal reflux disease without esophagitis; E11.9 Type 2 diabetes mellitus without complications; Z79.4 Long term (current) use of insulin; Z79.52 Long term (current) use of systemic steroids; Z79.1 Long term (current) use of non-steroidal anti-inflammatories (NSAID); Z98.890 Other specified postprocedural states; Z79.899 Other long term (current) drug therapy; Z88.5 Allergy status to narcotic agent; Z88.1 Allergy status to other antibiotic agents; Z91.040 Latex allergy status

== ENCOUNTER 2024-03-20 16:13 | Inpatient (IN) | payer MEDICARE, OTHER ==
[~2024-03-20] VITALS: Ht 160 cm; Wt 60.8 kg
[~2024-03-20 16:13] MED LIST changes: +CLOT15CR35 TP
[2024-03-20] MEDS ORDERED: methylPREDNISolone SOD SUCC 125 MG/2ML VIAL ONE (16:58)
[2024-03-20] MEDS: methylPREDNISolone SOD SUCC 125 MG/2ML VIAL IV ONE (17:00)
[2024-03-20 17:02] LABS: BASOPHILS % (AUTO) 0.4 % (0.0-2.0); EOSINOPHILS # (AUTO) 0.1 K/uL (0.0-0.7); EOSINOPHILS % (AUTO) 0.6 % (0.0-6.0); HEMATOCRIT 40 % (33-45); HEMOGLOBIN 13.3 g/dL (11.5-14.8); LYMPHOCYTES # (AUTO) 2.2 K/uL (0.8-4.8); MEAN CORPUSCULAR HEMOGLOBIN 32 PG (26.0-33.0); MEAN CORPUSCULAR HGB CONC 33 g/dl (31.0-36.0); MEAN CORPUSCULAR VOLUME 95 fL (82-100); MONOCYTES # (AUTO) 0.5 K/uL (0.1-1.30); MONOCYTES % (AUTO) 5.5 % (2.0-12.0); NEUTROPHILS # (AUTO) 5.9 K/uL (1.8-8.9); NEUTROPHILS % (AUTO) 68.5 % (43.0-81.0); PLATELET COUNT (AUTO) 179 K/uL (150-450); RED BLOOD CELL COUNT(AUTO) 4.21 MIL/uL (4.0-5.2); RED CELL DISTRIBUTION WIDTH 14.1 % (11.5-15.0); WHITE BLOOD COUNT (AUTO) 8.6 K/uL (4.3-11.0)
[2024-03-20] MEDS ORDERED: ALBUTEROL FS 2.5 MG/3 ML VIAL.NEB ONE (17:04)
[2024-03-20] MEDS ORDERED: IPRATROPIUM NEB FS 0.5 MG/2.5 ML AMPUL.NEB ONE (17:04)
[2024-03-20 17:11] VITALS: O2SAT 91
[2024-03-20] MEDS: ALBUTEROL FS 2.5 MG/3 ML VIAL.NEB CONTNEB ONE (17:11)
[2024-03-20] MEDS: IPRATROPIUM NEB FS 0.5 MG/2.5 ML AMPUL.NEB NEB ONE (17:11)
[2024-03-20 17:13] LABS: CALCIUM, SERUM 8.8 mg/dL (8.5-10.1); CARBON DIOXIDE 31 mmol/L (21-32); CHLORIDE 105 mmol/L (98-107); CREATININE 0.8 mg/dL (0.6-1.3); GLUCOSE 85 mg/dL (74-106); POTASSIUM 3.7 mmol/L (3.5-5.1); SODIUM SERUM 143 mmol/L (136-145); UREA NITROGEN, BLOOD 15 mg/dL (7-18)
[2024-03-20 17:16] LABS: D-DIMER 1.62 mg/L(FEU (0.17-0.50); INR 1.08 (0.91-1.10); PARTIAL THROMBOPLASTIN TIME 24.6 SEC (24.3-34.3); PROTHROMBIN TIME 11.4 SECS (9.2-11.1)
[2024-03-20] MEDS ORDERED: CEFTRIAXONE 1GM BAG (ER ONLY) 50 ML IV ONE (17:23)
[2024-03-20] MEDS: CEFTRIAXONE 1 G in IV D5W 50 ML IV ONE (17:25)
[2024-03-20 17:27] LABS: ALANINE AMINOTRANSFERASE 22 U/L (12-78); ALBUMIN 3.3 g/dL (3.4-5.0); ALKALINE PHOSPHATASE 90 U/L (46-116); ASPARTATE AMINOTRANSFERASE 18 U/L (15-37); BILIRUBIN,DIRECT 0.1 mg/dL (0.0-0.2); BILIRUBIN,TOTAL 0.4 mg/dL (0.2-1.0); NT-PRO BNP 61 pg/mL (0-125); TOTAL PROTEIN, SERUM 6.9 g/dL (6.4-8.2)
[2024-03-20 17:51] VITALS: O2SAT 96
[2024-03-20] MEDS ORDERED: [UNRECOGNIZED DRUG - CODE] PO (17:57)
[2024-03-20] MEDS ORDERED: NEOM28OI32 TP (17:57)
[2024-03-20] MEDS ORDERED: LIDO700A30 TP (17:57)
[2024-03-20] MEDS ORDERED: ATOR10TA PO (17:57)
[2024-03-20] MEDS ORDERED: ONDA8TAB65 PO (17:57)
[2024-03-20] MEDS ORDERED: MAGN400O6 PO (17:57)
[2024-03-20] MEDS ORDERED: IPRA0.2S49 IH (17:57)
[2024-03-20] MEDS ORDERED: INGREZZA PO (17:57)
[2024-03-20] MEDS ORDERED: IOHEXOL-350 100 ML VIAL IV ONE (18:31)
[2024-03-20] MEDS ORDERED: CT SWABBABLE VALVE TRANS SET 1 EA INFUS.SET MC ONE (18:31)
[2024-03-20] MEDS ORDERED: INSULIN REGULAR, HUMAN 100 UNIT/ML 3 ML VIAL SQ PRN (23:00)
[2024-03-20] MEDS ORDERED: LIDOCAINE 5% (PATCH) 1 EA PATCH TP PRN (23:00)
[2024-03-20] MEDS ORDERED: *INSULIN REGULAR(HUMULIN R)HUM 100 UNIT/ML VIAL SQ PRN (23:00)
[2024-03-20] MEDS ORDERED: MAGNESIUM HYDROXIDE 30 ML UDC PO PRN (23:00)
[2024-03-20] MEDS ORDERED: MAG HYDROX/AL HYDROX/SIMETH 30 ML UDC PO PRN (23:00)
[2024-03-20] MEDS ORDERED: Z GUARD REMEDY 4 OZ OINT TP PRN (23:00)
[2024-03-20] MEDS ORDERED: ONDANSETRON HCL/PF 4 MG/2 ML VIAL IVP PRN (23:00)
[2024-03-20] MEDS ORDERED: DEXTROSE 50%-WATER 50 ML DISP.SYRIN IV PRN (23:00)
[2024-03-20] MEDS ORDERED: ACETAMINOPHEN 325 MG TABLET PO PRN (23:00)
[2024-03-20] MEDS: LEVOFLOXACIN 500 MG /D5W 100ML 100 ML IV ONE (23:53)
[2024-03-20] MEDS: LEVOFLOXACIN 500 MG /D5W 100ML 500 MG in PREMIX 1 EA IV SCH (23:53)
[2024-03-21] VITALS (12 sets, daily range): BP systolic 110–142; BP diastolic 57–81; TEMP 98.1–99.9; O2SAT 90–97
[2024-03-21] MEDS ORDERED: HYDROMORPHONE 1 MG/1 ML DISP.SYRIN IV PRN
[2024-03-21] MEDS: ZOLPIDEM TARTRATE 5 MG TABLET PO PRN (00:30)
[2024-03-21] MEDS: HYDROMORPHONE HCL 2 MG TABLET PO PRN (00:30)
[2024-03-21] MEDS: clonazePAM 0.5 MG TABLET PO SCH (00:35)
[2024-03-21] MEDS: ALBUTEROL FS 2.5 MG/3 ML VIAL.NEB NEB SCH (01:25)
[2024-03-21] MEDS: IPRATROPIUM NEB FS 0.5 MG/2.5 ML AMPUL.NEB NEB SCH (01:25)
[2024-03-21] MEDS ORDERED: DEXTROSE 50%-WATER 50 ML DISP.SYRIN IV PRN (03:00)
[2024-03-21] MEDS: methylPREDNISolone SOD SUCC 40 MG/ML VIAL IV SCH (04:29)
[2024-03-21 06:20] LABS: BASOPHILS % (AUTO) 0.1 % (0.0-2.0); HEMATOCRIT 37 % (33-45); HEMOGLOBIN 12.4 g/dL (11.5-14.8); LYMPHOCYTES # (AUTO) 0.7 K/uL (0.8-4.8); LYMPHOCYTES % (AUTO) 7.9 % (20.0-44.0); MEAN CORPUSCULAR HEMOGLOBIN 32 PG (26.0-33.0); MEAN CORPUSCULAR HGB CONC 33 g/dl (31.0-36.0); MEAN CORPUSCULAR VOLUME 96 fL (82-100); MONOCYTES # (AUTO) 0.3 K/uL (0.1-1.30); MONOCYTES % (AUTO) 3.1 % (2.0-12.0); NEUTROPHILS # (AUTO) 7.7 K/uL (1.8-8.9); NEUTROPHILS % (AUTO) 88.9 % (43.0-81.0); PLATELET COUNT (AUTO) 179 K/uL (150-450); RED BLOOD CELL COUNT(AUTO) 3.86 MIL/uL (4.0-5.2); RED CELL DISTRIBUTION WIDTH 14.3 % (11.5-15.0); WHITE BLOOD COUNT (AUTO) 8.7 K/uL (4.3-11.0)
[2024-03-21 06:40] LABS: CALCIUM, SERUM 9.1 mg/dL (8.5-10.1); CARBON DIOXIDE 26 mmol/L (21-32); CHLORIDE 106 mmol/L (98-107); CREATININE 0.8 mg/dL (0.6-1.3); GLUCOSE 182 mg/dL (74-106); MAGNESIUM 2.1 mg/dL (1.8-2.4); PHOSPHORUS 2.6 mg/dL (2.5-4.9); POTASSIUM 4.4 mmol/L (3.5-5.1); SODIUM SERUM 142 mmol/L (136-145); UREA NITROGEN, BLOOD 11 mg/dL (7-18)
[2024-03-21] MEDS ORDERED: BLOOD SUGAR DIAGNOSTIC 1 EACH STRIP VI SCH (07:30)
[2024-03-21] MEDS ORDERED: BLOOD SUGAR DIAGNOSTIC 1 EACH STRIP IN SCH (07:30)
[2024-03-21] MEDS: BLOOD SUGAR DIAGNOSTIC 1 EACH STRIP IN SCH (07:46)
[2024-03-21] MEDS: INSULIN REGULAR, HUMAN 100 UNIT/ML 3 ML VIAL SQ PRN (07:47)
[2024-03-21] MEDS: PANTOPRAZOLE 40 MG TABLET.DR PO SCH (07:52)
[2024-03-21] MEDS: CHOLECALCIFEROL 1,000 UNIT TABLET (VIT D3) PO SCH (08:57)
[2024-03-21] MEDS: TRAMADOL HCL 50 MG TABLET PO SCH (08:57)
[2024-03-21] MEDS: GABAPENTIN 100 MG CAPSULE PO SCH (08:58)
[2024-03-21] MEDS: MULTIVIT W/MINERALS 1 TAB TABLET PO SCH (08:58)
[2024-03-21] MEDS: METHOCARBAMOL (750MG) 750 MG TABLET PO SCH (08:58)
[2024-03-21] MEDS: ATORVASTATIN 10 MG TABLET PO SCH (08:58)
[2024-03-21] MEDS: CARVEDILOL 3.125 MG TABLET PO SCH (08:58)
[2024-03-21] MEDS: CALCIUM CARBONATE (1250) 500 MG TABLET PO SCH (08:58)
[2024-03-21] MEDS: CYANOCOBALAMIN 500 MCG TABLET PO SCH (08:59)
[2024-03-21] MEDS ORDERED: PILOCARPINE HCL 5 MG TABLET PO SCH (09:00)
[2024-03-21] MEDS ORDERED: INGREZZA PO SCH (09:00)
[2024-03-21] MEDS: POLYVINYL ALCOHOL 15 ML BOTTLE EACHEYE SCH (09:02)
[2024-03-21] MEDS: MIRTAZAPINE 15 MG TABLET PO SCH (21:19)
[2024-03-21] MEDS ORDERED: Medication Not On Formulary EA (Melatonin 5 MG) PO SCH (22:00)
[2024-03-22] VITALS (12 sets, daily range): BP systolic 106–129; BP diastolic 58–107; TEMP 97.8–98.4; O2SAT 90–99
[2024-03-22 06:57] LABS: HEMATOCRIT 37 % (33-45); HEMOGLOBIN 12.2 g/dL (11.5-14.8); LYMPHOCYTES # (AUTO) 0.9 K/uL (0.8-4.8); LYMPHOCYTES % (AUTO) 6.6 % (20.0-44.0); MEAN CORPUSCULAR HEMOGLOBIN 32 PG (26.0-33.0); MEAN CORPUSCULAR HGB CONC 34 g/dl (31.0-36.0); MEAN CORPUSCULAR VOLUME 95 fL (82-100); MONOCYTES # (AUTO) 0.3 K/uL (0.1-1.30); MONOCYTES % (AUTO) 2.7 % (2.0-12.0); NEUTROPHILS # (AUTO) 11.7 K/uL (1.8-8.9); NEUTROPHILS % (AUTO) 90.7 % (43.0-81.0); PLATELET COUNT (AUTO) 178 K/uL (150-450); RED BLOOD CELL COUNT(AUTO) 3.84 MIL/uL (4.0-5.2); RED CELL DISTRIBUTION WIDTH 14.2 % (11.5-15.0); WHITE BLOOD COUNT (AUTO) 12.9 K/uL (4.3-11.0)
[2024-03-22 06:58] LABS: CALCIUM, SERUM 9.5 mg/dL (8.5-10.1); CARBON DIOXIDE 29 mmol/L (21-32); CHLORIDE 106 mmol/L (98-107); CREATININE 0.7 mg/dL (0.6-1.3); GLUCOSE 155 mg/dL (74-106); MAGNESIUM 2.1 mg/dL (1.8-2.4); PHOSPHORUS 3.8 mg/dL (2.5-4.9); POTASSIUM 4.3 mmol/L (3.5-5.1); SODIUM SERUM 140 mmol/L (136-145); UREA NITROGEN, BLOOD 19 mg/dL (7-18)
[2024-03-22] MEDS: PILOCARPINE 5 MG PO SCH (09:02)
[2024-03-22] MEDS ORDERED: TRAMADOL HCL 50 MG TABLET PO SCH (12:30)
[2024-03-22] MEDS: TRAMADOL HCL 50 MG TABLET PO SCH (14:23)
[2024-03-23] VITALS: BP 114/71; TEMP 98.4; O2SAT 92
[2024-03-23 01:45] VITALS: O2SAT 91
[2024-03-23 02:00] VITALS: O2SAT 98
[2024-03-23 04:00] VITALS: BP 153/84; TEMP 98.1; O2SAT 92
[2024-03-23 06:54] LABS: BASOPHILS % (AUTO) 0.1 % (0.0-2.0); HEMATOCRIT 38 % (33-45); HEMOGLOBIN 12.5 g/dL (11.5-14.8); LYMPHOCYTES # (AUTO) 0.8 K/uL (0.8-4.8); MEAN CORPUSCULAR HEMOGLOBIN 31 PG (26.0-33.0); MEAN CORPUSCULAR HGB CONC 33 g/dl (31.0-36.0); MEAN CORPUSCULAR VOLUME 96 fL (82-100); MONOCYTES # (AUTO) 0.3 K/uL (0.1-1.30); MONOCYTES % (AUTO) 2.7 % (2.0-12.0); NEUTROPHILS % (AUTO) 89.2 % (43.0-81.0); PLATELET COUNT (AUTO) 175 K/uL (150-450); RED BLOOD CELL COUNT(AUTO) 3.99 MIL/uL (4.0-5.2); RED CELL DISTRIBUTION WIDTH 14.5 % (11.5-15.0)
[2024-03-23 07:36] LABS: CALCIUM, SERUM 9.7 mg/dL (8.5-10.1); CARBON DIOXIDE 27 mmol/L (21-32); CHLORIDE 105 mmol/L (98-107); CREATININE 0.8 mg/dL (0.6-1.3); GLUCOSE 144 mg/dL (74-106); MAGNESIUM 2.3 mg/dL (1.8-2.4); PHOSPHORUS 4.2 mg/dL (2.5-4.9); POTASSIUM 4.2 mmol/L (3.5-5.1); SODIUM SERUM 141 mmol/L (136-145); UREA NITROGEN, BLOOD 24 mg/dL (7-18)
[2024-03-23 08:00] VITALS: BP 138/75; TEMP 98; O2SAT 96
[2024-03-23 08:24] VITALS: BP 138/75
[2024-03-23] MEDS ORDERED: LEVO500T90 PO (09:14)
[2024-03-23] MEDS ORDERED: METH4TAB17 PO (09:14)
[2024-03-23] MEDS ORDERED: LEVOFLOXACIN (250MG) 250 MG TABLET PO SCH (23:00)
== END 2024-03-23 14:28 | DRG 193 ==
LOC: ER 16:20 → TELE1 20:35 → MEDSG1 03-23 09:51
PROVIDERS: ADMIT Nurse Practitioner Acute Care; ATTEND Nurse Practitioner Acute Care
DX: J15.9 Unspecified bacterial pneumonia (principal); J96.21 Acute and chronic respiratory failure with hypoxia; J44.1 Chronic obstructive pulmonary disease with (acute) exacerbation; E27.1 Primary adrenocortical insufficiency; J44.0 Chronic obstructive pulmonary disease with (acute) lower respiratory infection; J20.9 Acute bronchitis, unspecified; Z99.81 Dependence on supplemental oxygen; G89.4 Chronic pain syndrome; G20.B1 Parkinson's disease with dyskinesia, without mention of fluctuations; M06.9 Rheumatoid arthritis, unspecified; M81.0 Age-related osteoporosis without current pathological fracture; Z79.52 Long term (current) use of systemic steroids; F41.9 Anxiety disorder, unspecified; R79.1 Abnormal coagulation profile; E11.40 Type 2 diabetes mellitus with diabetic neuropathy, unspecified; Z79.84 Long term (current) use of oral hypoglycemic drugs; Z79.899 Other long term (current) drug therapy; Z87.01 Personal history of pneumonia (recurrent); Z88.5 Allergy status to narcotic agent; Z88.6 Allergy status to analgesic agent; Z88.7 Allergy status to serum and vaccine; Z91.040 Latex allergy status; H81.03 Meniere's disease, bilateral; K21.9 Gastro-esophageal reflux disease without esophagitis; I10 Essential (primary) hypertension
CPT/HCPCS: 36415; 71045-TC; 80048-TC; 80076-TC; 82962-TC; 83605-TC; 83690-TC; 83735-TC; 83880; 84100-TC; 84484-TC; 85025-TC; 85378-TC; 85730-TC; 87040-TC; 87081-TC; 94760-TC; 94762-TC; 94799-TC; 97116-TC; 97530-TC; A4216; A4223; G0378; J0696; J1815; J1956; J2919; J7050; J7060; Q9967

== ENCOUNTER 2024-05-07 12:01 | Inpatient (IN) | payer MEDICARE, OTHER ==
[~2024-05-07] VITALS: Ht 160 cm; Wt 59.0 kg
[~2024-05-07 12:01] MED LIST changes: +ATOR10TA PO; -CLOT12CR TP; -CLOT15CR35 TP; +INGREZZA PO; -INSU100V30 SQ; +IPRA0.2S49 IH; -IPRA3AMP23 IH; -LIDO1ADH71 TP; +LIDO700A30 TP; -LORA-258 PO; +MAGN400O6 PO; +METH4TAB17 PO; +NEOM28OI32 TP; -ONDA4TAB11 PO; +ONDA8TAB65 PO; -PRED20TA PO; -VALB80CA PO; +[UNRECOGNIZED DRUG - CODE] PO
[2024-05-07] MEDS ORDERED: HYDROMORPHONE 1 MG/1 ML DISP.SYRIN ONE (13:26)
[2024-05-07 13:27] LABS: BASOPHILS # (AUTO) 0.1 K/uL (0.0-0.2); EOSINOPHILS # (AUTO) 0.2 K/uL (0.0-0.7); HEMATOCRIT 38 % (33-45); LYMPHOCYTES % (AUTO) 32.8 % (20.0-44.0); MEAN CORPUSCULAR HEMOGLOBIN 32 PG (26.0-33.0); MEAN CORPUSCULAR HGB CONC 35 g/dl (31.0-36.0); MEAN CORPUSCULAR VOLUME 94 fL (82-100); MONOCYTES # (AUTO) 0.7 K/uL (0.1-1.30); MONOCYTES % (AUTO) 10.5 % (2.0-12.0); NEUTROPHILS # (AUTO) 3.3 K/uL (1.8-8.9); NEUTROPHILS % (AUTO) 52.7 % (43.0-81.0); PLATELET COUNT (AUTO) 188 K/uL (150-450); RED BLOOD CELL COUNT(AUTO) 4.02 MIL/uL (4.0-5.2); RED CELL DISTRIBUTION WIDTH 14.5 % (11.5-15.0); WHITE BLOOD COUNT (AUTO) 6.2 K/uL (4.3-11.0)
[2024-05-07] MEDS: HYDROMORPHONE 1 MG/1 ML DISP.SYRIN IV ONE (13:30)
[2024-05-07] MEDS ORDERED: TRAM50TA2 PO (13:45)
[2024-05-07] MEDS ORDERED: INSU100V42 SQ (13:45)
[2024-05-07] MEDS ORDERED: GLUC1KIT IM (13:45)
[2024-05-07] MEDS ORDERED: BISA10SU11 RC (13:45)
[2024-05-07] MEDS ORDERED: POLY17PO4 PO (13:45)
[2024-05-07] MEDS ORDERED: BENZ1LOZ58 MM (13:45)
[2024-05-07] MEDS ORDERED: [UNRECOGNIZED DRUG - OTHER] PO (13:45)
[2024-05-07] MEDS ORDERED: OMEP20CA15 PO (13:45)
[2024-05-07 13:57] LABS: ALANINE AMINOTRANSFERASE 24 U/L (12-78); ALBUMIN 3.2 g/dL (3.4-5.0); ALKALINE PHOSPHATASE 51 U/L (46-116); ASPARTATE AMINOTRANSFERASE 33 U/L (15-37); BILIRUBIN,DIRECT 0.2 mg/dL (0.0-0.2); BILIRUBIN,TOTAL 0.6 mg/dL (0.2-1.0); CALCIUM, SERUM 8.8 mg/dL (8.5-10.1); CARBON DIOXIDE 29 mmol/L (21-32); CHLORIDE 107 mmol/L (98-107); CREATININE 0.5 mg/dL (0.6-1.3); GLUCOSE 100 mg/dL (74-106); POTASSIUM 3.1 mmol/L (3.5-5.1); SODIUM SERUM 143 mmol/L (136-145); TOTAL PROTEIN, SERUM 6.3 g/dL (6.4-8.2); UREA NITROGEN, BLOOD 10 mg/dL (7-18)
[2024-05-07] MEDS ORDERED: Z GUARD REMEDY 4 OZ OINT TP PRN (14:30)
[2024-05-07] MEDS ORDERED: ONDANSETRON HCL/PF 4 MG/2 ML VIAL IVP PRN (14:30)
[2024-05-07] MEDS ORDERED: ZOLPIDEM TARTRATE 5 MG TABLET PO PRN (14:30)
[2024-05-07] MEDS: ENOXAPARIN SODIUM 40 MG/0.4 ML DISP.SYRIN SQ SCH (14:30)
[2024-05-07] MEDS ORDERED: MENTHOL/CETYLPYRD (CEPACOL) 1 LOZ LOZENGE PO PRN (14:30)
[2024-05-07] MEDS ORDERED: MAG HYDROX/AL HYDROX/SIMETH 30 ML UDC PO PRN (14:30)
[2024-05-07] MEDS ORDERED: MAGNESIUM HYDROXIDE 30 ML UDC PO PRN (14:30)
[2024-05-07] MEDS ORDERED: ACETAMINOPHEN 325 MG TABLET PO PRN (14:30)
[2024-05-07] MEDS ORDERED: DEXTROSE 50%-WATER 50 ML DISP.SYRIN IV PRN (14:30)
[2024-05-07] MEDS ORDERED: IV NS 0.9% 250 ML IV ONE (15:34)
[2024-05-07] MEDS ORDERED: CT SWABBABLE VALVE TRANS SET 1 EA INFUS.SET MC ONE (15:34)
[2024-05-07] MEDS ORDERED: IOHEXOL-300 100 ML VIAL IV ONE (15:34)
[2024-05-07] MEDS ORDERED: TRAMADOL HCL 50 MG TABLET ONE (16:37)
[2024-05-07] MEDS: TRAMADOL HCL 50 MG TABLET PO PRN (16:43)
[2024-05-07] MEDS: CALCIUM CARBONATE (1250) 500 MG TABLET PO SCH (17:00)
[2024-05-07] MEDS: POLYVINYL ALCOHOL 15 ML BOTTLE EACHEYE SCH (17:27)
[2024-05-07] MEDS: CARVEDILOL 3.125 MG TABLET PO SCH (17:27)
[2024-05-07] MEDS: HYDROMORPHONE HCL 2 MG TABLET PO PRN ×2 (17:28→23:53)
[2024-05-07] MEDS: BLOOD SUGAR DIAGNOSTIC 1 EACH STRIP VI SCH (17:28)
[2024-05-07] MEDS: IPRATROPIUM NEB FS 0.5 MG/2.5 ML AMPUL.NEB NEB SCH (19:30)
[2024-05-07 19:54] VITALS: O2SAT 91
[2024-05-07 20:09] VITALS: O2SAT 95
[2024-05-07] MEDS: ALBUTEROL FS 2.5 MG/3 ML VIAL.NEB NEB SCH (20:29)
[2024-05-07] MEDS: POTASSIUM CHLORIDE 20 MEQ TAB.PRT.SR PO ONE (20:35)
[2024-05-07] MEDS: clonazePAM 0.5 MG TABLET PO SCH (20:35)
[2024-05-07] MEDS: ATORVASTATIN 10 MG TABLET PO SCH (21:25)
[2024-05-07] MEDS: MIRTAZAPINE 15 MG TABLET PO SCH (21:25)
[2024-05-07] MEDS: *INSULIN REGULAR(HUMULIN R)HUM 100 UNIT/ML VIAL SQ PRN (21:32)
[2024-05-07 22:41] VITALS: BP 120/97; TEMP 97.5; O2SAT 97
[2024-05-08] MEDS: INSULIN REGULAR, HUMAN 100 UNIT/ML 3 ML VIAL SQ PRN (06:16)
[2024-05-08] MEDS: PANTOPRAZOLE 40 MG TABLET.DR PO SCH (07:45)
[2024-05-08 07:55] VITALS: O2SAT 96
[2024-05-08] MEDS: LORATADINE 10 MG TABLET PO SCH (08:11)
[2024-05-08] MEDS: ASPIRIN 81 MG TAB.CHEW PO SCH (08:11)
[2024-05-08] MEDS: MULTIVIT W/MINERALS 1 TAB TABLET PO SCH (08:11)
[2024-05-08] MEDS: POLYETHYLENE GLYCOL 3350 17 GM POWD.PACK PO SCH (08:11)
[2024-05-08] MEDS: CHOLECALCIFEROL 1,000 UNIT TABLET (VIT D3) PO SCH (08:13)
[2024-05-08] MEDS ORDERED: INGREZZA PO SCH (09:00)
[2024-05-08] MEDS: METHOCARBAMOL (500MG) 500 MG TABLET PO SCH (12:29)
[2024-05-08] MEDS: GABAPENTIN 100 MG CAPSULE PO SCH (12:29)
[2024-05-08 15:21] LABS: BASOPHILS % (AUTO) 0.4 % (0.0-2.0); EOSINOPHILS # (AUTO) 0.1 K/uL (0.0-0.7); EOSINOPHILS % (AUTO) 2.5 % (0.0-6.0); HEMATOCRIT 39 % (33-45); HEMOGLOBIN 13.4 g/dL (11.5-14.8); LYMPHOCYTES # (AUTO) 1.9 K/uL (0.8-4.8); LYMPHOCYTES % (AUTO) 36.3 % (20.0-44.0); MEAN CORPUSCULAR HEMOGLOBIN 32 PG (26.0-33.0); MEAN CORPUSCULAR HGB CONC 34 g/dl (31.0-36.0); MEAN CORPUSCULAR VOLUME 95 fL (82-100); MONOCYTES # (AUTO) 0.6 K/uL (0.1-1.30); MONOCYTES % (AUTO) 11.3 % (2.0-12.0); NEUTROPHILS # (AUTO) 2.7 K/uL (1.8-8.9); NEUTROPHILS % (AUTO) 49.5 % (43.0-81.0); PLATELET COUNT (AUTO) 175 K/uL (150-450); RED BLOOD CELL COUNT(AUTO) 4.16 MIL/uL (4.0-5.2); RED CELL DISTRIBUTION WIDTH 14.5 % (11.5-15.0); WHITE BLOOD COUNT (AUTO) 5.4 K/uL (4.3-11.0)
[2024-05-08 15:53] LABS: CALCIUM, SERUM 8.8 mg/dL (8.5-10.1); CREATININE 0.7 mg/dL (0.6-1.3); MAGNESIUM 1.8 mg/dL (1.8-2.4); PHOSPHORUS 3.5 mg/dL (2.5-4.9)
[2024-05-08 15:54] LABS: POTASSIUM 2.8 mmol/L (3.5-5.1)
[2024-05-08 20:00] VITALS: BP 122/76; TEMP 98.8; O2SAT 93
[2024-05-08 20:21] VITALS: O2SAT 96
[2024-05-09 07:00] VITALS: BP 103/73; TEMP 98.6; O2SAT 94
[2024-05-09 16:00] VITALS: BP 110/77; TEMP 98.2; O2SAT 93
[2024-05-09 20:00] VITALS: BP 95/62; TEMP 97.7; O2SAT 93
[2024-05-09 20:45] VITALS: O2SAT 95
[2024-05-10 06:00] VITALS: BP 121/69; TEMP 98.2; O2SAT 94
[2024-05-10 06:50] LABS: BASOPHILS % (AUTO) 0.4 % (0.0-2.0); EOSINOPHILS # (AUTO) 0.1 K/uL (0.0-0.7); EOSINOPHILS % (AUTO) 1.9 % (0.0-6.0); HEMATOCRIT 39 % (33-45); HEMOGLOBIN 13.7 g/dL (11.5-14.8); LYMPHOCYTES # (AUTO) 2.5 K/uL (0.8-4.8); MEAN CORPUSCULAR HEMOGLOBIN 33 PG (26.0-33.0); MEAN CORPUSCULAR HGB CONC 35 g/dl (31.0-36.0); MEAN CORPUSCULAR VOLUME 94 fL (82-100); MONOCYTES # (AUTO) 0.7 K/uL (0.1-1.30); NEUTROPHILS # (AUTO) 3.5 K/uL (1.8-8.9); NEUTROPHILS % (AUTO) 51.7 % (43.0-81.0); PLATELET COUNT (AUTO) 180 K/uL (150-450); RED BLOOD CELL COUNT(AUTO) 4.15 MIL/uL (4.0-5.2); RED CELL DISTRIBUTION WIDTH 14.9 % (11.5-15.0); WHITE BLOOD COUNT (AUTO) 6.9 K/uL (4.3-11.0)
[2024-05-10 07:00] VITALS: BP 116/63; TEMP 98.6; O2SAT 94
[2024-05-10 07:15] LABS: CALCIUM, SERUM 9.5 mg/dL (8.5-10.1); CREATININE 0.7 mg/dL (0.6-1.3); MAGNESIUM 1.7 mg/dL (1.8-2.4)
[2024-05-10] MEDS: MAGNESIUM OXIDE 400 MG TABLET PO ONE (10:00)
[2024-05-10] MEDS: POTASSIUM CHLORIDE 20 MEQ TAB.PRT.SR PO SCH (10:00)
[2024-05-10] MEDS ORDERED: METH500T6 PO (15:00)
[2024-05-10] MEDS ORDERED: GABA100C PO (15:00)
[2024-05-10] MEDS ORDERED: ASPI-1169 PO (15:00)
[2024-05-10 16:00] VITALS: BP 100/71; TEMP 98.4; O2SAT 94
[2024-05-10 16:51] VITALS: BP 117/72
== END 2024-05-10 18:47 | DRG 313 ==
LOC: ER 12:15 → TELE 15:30 → MED 05-08 18:06
PROVIDERS: ADMIT Nurse Practitioner Acute Care; ATTEND Student in an Organized Health Care Education/Training Program
DX: R07.89 Other chest pain (principal); E27.1 Primary adrenocortical insufficiency; I48.91 Unspecified atrial fibrillation; G89.4 Chronic pain syndrome; H81.09 Meniere's disease, unspecified ear; E11.40 Type 2 diabetes mellitus with diabetic neuropathy, unspecified; E87.6 Hypokalemia; J44.9 Chronic obstructive pulmonary disease, unspecified; F41.9 Anxiety disorder, unspecified; I11.0 Hypertensive heart disease with heart failure; K21.9 Gastro-esophageal reflux disease without esophagitis; Z87.01 Personal history of pneumonia (recurrent); Z88.6 Allergy status to analgesic agent; Z99.81 Dependence on supplemental oxygen; Z79.84 Long term (current) use of oral hypoglycemic drugs; R74.8 Abnormal levels of other serum enzymes; G20.A1 Parkinson's disease without dyskinesia, without mention of fluctuations; Z79.4 Long term (current) use of insulin; Z88.5 Allergy status to narcotic agent; I50.9 Heart failure, unspecified
CPT/HCPCS: 36415; 71045-TC; 80048-TC; 80061-TC; 80076-TC; 82962-TC; 83735-TC; 83880; 84100-TC; 84484-TC; 85025-TC; 93307-TC; 94760-TC; 94761-TC; 94799-TC; 97112-TC; 97116-TC; 97530-TC; A4223; G0378; J1171; J1650; J1815; J7050; Q9967